=== PATIENT | female | born 1960 | race Caucasian/White ===

== ENCOUNTER 2022-12-26 17:39 | Inpatient (IN) | payer BC ==
--- OUTSIDE RECORDS SUMMARY | 2022-12-26 17:43 | XMS REPORT | Continuity of Care Document ---
:1960 Author Organization [facility] t Address [address] [facility] [place] [address] Care Team Providers Name Role Phone BURT FISHER Primary Care Physician Unavailable ILDA PICHARDO I Attending Clinician Unavailable JORDYN GUTIERREZ Attending Clinician Unavailable AALIYAH SCHWAB Attending Clinician Unavailable AALIYAH SCHWAB Attending Clinician Unavailable JULIA DE LA ROSA Attending Clinician Unavailable Jose M Kelly MD Attending Clinician JORDYN GUTIERREZ Admitting Clinician Unavailable Payers Payer Name Policy Type Policy Number Effective Date Expiration Date S yassine BS OS [id number] 2021 00:00:00 POS/PPO/EPO Problems This patient has no known problems. Allergies, Adverse Reactions, Alerts Allergy Allergy Status Severity Reaction(s) Onset Inactive Treating Comm ents Source Name Type Date Date Clinician SULFA Allergy Active Low Nausea [facility] ([facility] 00 [facility] I[facility]) [facility] Active ITCHING 2018- [facility]I 6-24 [facility] [place] 00 [facility] SULFA Drug Active N/V 2018- [facility] (SULFONA Class 6-24 ity of [facility] 00:[facility]: [place] ANTIBIOT 00 Medical ICS) Branch Medications This patient has no known medications. Vital Signs Vital Name Observation Time Observation Value Comments Source HEIGHT 2022-12-15 04:00:00 147.3 cm WEIGHT 2022-12-15 04:00:00 58.2 kg HEIGHT 2022-12-15 04:00:00 147.3 cm WEIGHT 2022-12-15 04:00:00 58.2 kg Procedures This patient has no known procedures. Encounters Start End Encounter Admission Attending Care Care Encounter Source Date/Time Date/Time Type Type Clinicians Facility Department ID 2022-12-[address] [facility] [id number] [facility] 08:13:09 [facility] 2022-12-17 Inpatient ER [facility] [id number] [facility] 07:02:47 A NIMCO JOSE AANTONIO 2022-12-15 Inpatient ER [facility] [id number] [facility] 17:19:22 A JORDYN RINALDI 2022-12-15 Inpatient ER [facility] [id number] [facility] 14:42:20 A JORDYN RINALDI 2022-12-15 Inpatient ER [facility] [id number] [facility] 14:42:13 A JORDYN RINALDI 2022-12-15 Inpatient ER [facility] [id number] [facility] 14:42:05 A JORDYN RINALDI 2022-12-15 2022-12-22 Inpatient ER [facility] Neuro ICU [id number] [facility] 04:07:00 11:37:00 MRINALINI 2018-12-27 2018-12-27 [facility] [id number] 12:30:00 23:59:00 Encounter Jose M Gabe [place] [id number] [place] [id number] [place] [id number] Results Test Description Test Time Test Comments Results Result Comments Source CBC W/PLT COUNT & AUTO DIFFERENTIAL 2022-12-22 06:30:49 Test Item Value Reference Range Interpretation Comme nts WHITE BLOOD CELL COUNT (BEAKER) (test code = 775) 7.5 K/ L 3.5- 10.5 RED BLOOD CELL COUNT (BEAKER) (test code = 761) 3.57 M/ L 3.93-5 .22 L HEMOGLOBIN (BEAKER) (test code = 410) 10.6 GM/DL 11.2-15.7 L HEMATOCRIT (BEAKER) (test code = 411) 31.0 % 34.1-44.9 L MEAN CORPUSCULAR VOLUME (BEAKER) (test code = 753) 87 fL 79- 95 MEAN CORPUSCULAR HEMOGLOBIN (BEAKER) (test code = 751) 29.7 pg 25.6-32.2 MEAN CORPUSCULAR HEMOGLOBIN CONC (BEAKER) (test code = 752) 34.2 GM/DL 32.2-35.5 RED CELL DISTRIBUTION WIDTH (BEAKER) (test code = 412) 13.1 % 11.7-14.4 PLATELET COUNT (BEAKER) (test code = 756) 238 K/CU MM 150-450 MEAN PLATELET VOLUME (BEAKER) (test code = 754) 9.3 fL 9.4-12 .3 L NUCLEATED RED BLOOD CELLS (BEAKER) (test code = 413) 0 /100 WBC 0 -0 NEUTROPHILS RELATIVE PERCENT (BEAKER) (test code = 429) 68 % LYMPHOCYTES RELATIVE PERCENT (BEAKER) (test code = 430) 24 % MONOCYTES RELATIVE PERCENT (BEAKER) (test code = 431) 6 % EOSINOPHILS RELATIVE PERCENT (BEAKER) (test code = 432) 1 % BASOPHILS RELATIVE PERCENT (BEAKER) (test code = 437) 0 % NEUTROPHILS ABSOLUTE COUNT (BEAKER) (test code = 670) 5.09 K/ L 1.56-6.13 LYMPHOCYTES ABSOLUTE COUNT (BEAKER) (test code = 414) 1.76 K/ L 1.18-3.74 MONOCYTES ABSOLUTE COUNT (BEAKER) (test code = 415) 0.48 K/ L 0. 24-0.36 H EOSINOPHILS ABSOLUTE COUNT (BEAKER) (test code = 416) 0.06 K/ L 0.04-0.36 BASOPHILS ABSOLUTE COUNT (BEAKER) (test code = 417) 0.02 K/ L 0. 01-0.08 IMMATURE GRANULOCYTES-RELATIVE PERCENT (BEAKER) (test code 0.90 % 0.00-1.00 = 2801) [id number] 06:20:54 Test Item Value Reference Range Interpretation Comments MAGNESIUM (BEAKER) (test code = 1.4 mg/dL 1.6-2.6 L 627) Bank Guard ID - [id number] 06:20:54 Test Item Value Reference Range Interpretation Comments PHOSPHORUS (BEAKER) (test code = 3.2 mg/dL 2.3-4.7 604) Bank Guard ID - mmBASIC METABOLIC [id number] 06:20:53 Test Item Value Reference Range Interpretation Comments SODIUM (BEAKER) 130 meq/L 136-145 L (test code = 381) POTASSIUM 4.0 meq/L 3.5-5.1 (BEAKER) (test code = 379) CHLORIDE (BEAKER) 100 meq/L 98-107 (test code = 382) CO2 (BEAKER) 24 meq/L 22-29 (test code = 355) BLOOD UREA 9 mg/dL 7-21 NITROGEN (BEAKER) (test code = 354) CREATININE 0.55 mg/dL 0.57-1.25 L (BEAKER) (test code = 358) GLUCOSE RANDOM 103 mg/dL 70-105 (BEAKER) (test code = 652) CALCIUM (BEAKER) 8.8 mg/dL 8.4-10.2 (test code = 697) EGFR (BEAKER) 103 Interpretatio n of eGFR (test code = mL/min/1.73 values Stage De scription 1092) sq m Result G1 Jocelyn l or high >=90 G2 Mildly decreased 60-89 G3a Mildl y to moderately 45-5 9 G3b Moderately to s everely 30-44 G4 Sever ly decreased 15-29 G5 Kidney failure <15Repo rted eGFR is based on the CKD-EPI 2020 equation t hat does not use a race coefficientEsti mated GFR is not as accur ate as Creatinine Faby bland in predicting glom erular filtration rate . Estimated GFR is not appl icable for dialysis patien ts Bank Guard ID - [id number] 06:46:55 Test Item Value Reference Range Interpretation Comments MAGNESIUM (BEAKER) (test code = 1.3 mg/dL 1.6-2.6 L 627) Bank Guard ID - [id number] 06:46:55 Test Item Value Reference Range Interpretation Comments PHOSPHORUS (BEAKER) (test code = 4.6 mg/dL 2.3-4.7 604) Bank Guard ID - ADMINBASIC METABOLIC [id number] 06:46:54 Test Item Value Reference Range Interpretation Comments SODIUM (BEAKER) 129 meq/L 136-145 L (test code = 381) POTASSIUM 3.5 meq/L 3.5-5.1 (BEAKER) (test code = 379) CHLORIDE (BEAKER) 97 meq/L 98-107 L (test code = 382) CO2 (BEAKER) 21 meq/L 22-29 L (test code = 355) BLOOD UREA 7 mg/dL 7-21 NITROGEN (BEAKER) (test code = 354) CREATININE 0.56 mg/dL 0.57-1.25 L (BEAKER) (test code = 358) GLUCOSE RANDOM 85 mg/dL 70-105 (BEAKER) (test code = 652) CALCIUM (BEAKER) 8.7 mg/dL 8.4-10.2 (test code = 697) EGFR (BEAKER) 102 Interpretatio n of eGFR (test code = mL/min/1.73 values Stage De scription 1092) sq m Result G1 Jocelyn l or high >=90 G2 Mildly decreased 60-89 G3a Mildl y to moderately 45-5 9 G3b Moderately to s everely 30-44 G4 Sever ly decreased 15-29 G5 Kidney failure <15Repo rted eGFR is based on the CKD-EPI 2020 equation t hat does not use a race coefficientEsti mated GFR is not as accur ate as Creatinine Faby bland in predicting glom erular filtration rate . Estimated GFR is not appl icable for dialysis patien ts Bank Guard ID - ADMINCBC W/PLT COUNT & AUTO [id number] 06:06:57 Test Item Value Reference Range Interpretation Comments WHITE BLOOD CELL COUNT (BEAKER) 7.2 K/ L 3.5-10.5 (test code = 775) RED BLOOD CELL COUNT (BEAKER) 3.59 M/ L 3.93-5.22 L (test code = 761) HEMOGLOBIN (BEAKER) (test code = 10.7 GM/DL 11.2-15.7 L 410) HEMATOCRIT (BEAKER) (test code = 30.1 % 34.1-44.9 L 411) MEAN CORPUSCULAR VOLUME (BEAKER) 84 fL 79-95 (test code = 753) MEAN CORPUSCULAR HEMOGLOBIN 29.8 pg 25.6-32.2 (BEAKER) (test code = 751) MEAN CORPUSCULAR HEMOGLOBIN CONC 35.5 GM/DL 32.2-35.5 (BEAKER) (test code = 752) RED CELL DISTRIBUTION WIDTH 12.7 % 11.7-14.4 (BEAKER) (test code = 412) PLATELET COUNT (BEAKER) (test 264 K/CU MM 150-450 code = 756) MEAN PLATELET VOLUME (BEAKER) 9.1 fL 9.4-12.3 L (test code = 754) NUCLEATED RED BLOOD CELLS 0 /100 WBC 0-0 (BEAKER) (test code = 413) NEUTROPHILS RELATIVE PERCENT 64 % (BEAKER) (test code = 429) LYMPHOCYTES RELATIVE PERCENT 27 % (BEAKER) (test code = 430) MONOCYTES RELATIVE PERCENT 6 % (BEAKER) (test code = 431) EOSINOPHILS RELATIVE PERCENT 2 % (BEAKER) (test code = 432) BASOPHILS RELATIVE PERCENT 0 % (BEAKER) (test code = 437) NEUTROPHILS ABSOLUTE COUNT 4.62 K/ L 1.56-6.13 (BEAKER) (test code = 670) LYMPHOCYTES ABSOLUTE COUNT 1.96 K/ L 1.18-3.74 (BEAKER) (test code = 414) MONOCYTES ABSOLUTE COUNT (BEAKER) 0.43 K/ L 0.24-0.36 H (test code = 415) EOSINOPHILS ABSOLUTE COUNT 0.13 K/ L 0.04-0.36 (BEAKER) (test code = 416) BASOPHILS ABSOLUTE COUNT (BEAKER) 0.02 K/ L 0.01-0.08 (test code = 417) IMMATURE GRANULOCYTES-RELATIVE 0.40 % 0.00-1.00 PERCENT (BEAKER) (test code = 2801) MR BRAIN WITH & WITHOUT IV [id number] 22:54:48 [facility] : 1960 Sex: FMR BRAIN WITH & WITHOUT IV CONTRASTINDICATION: Meningitis/[employer] infection suspectedTechnique: MRI of thebrain utilizing axial T1, T2, FLAIR, GRE, DWI,sagittal T1; and postgadolinium axial, sagittal, and coronal T1-weightedimages.COMPARISON: 12/15/2022FINDINGS:Questionable cortically based restricted diffusion and FLAIRhyperintensity within the right anterior occipital cortex (axial FLAIRimage #14; axial DTI image #56). No involvement of the subcortical whitematter. No definite associated enhancement.Scattered T2/FLAIR hyperintense foci within the periventricular andsubcortical white matter are nonspecific, however, statisticallyrepresent chronic microvascular ischemic changes.No hydrocephalus.Orbits are within normal limits.No obstructive paranasal sinus disease.Left mastoid effusion.IMPRESSION:Questionable cortically based restricted diffusion and FLAIRhyperintensity within the right anterior occipital cortex (axial FLAIRimage #14; axial DTI image #56). No involvement of the subcortical whitematter. Findings may represent sequela of recent seizure, or,conceivably, developing meningitis versus encephalitis.Electronically Signed By: Kala Fu12/20/2022 22:56 CDTWorkstation Name: [id number] CULTURE 2022-12-20 21:00:19 Test Item Value Reference Range Interpretation Comments CULTURE (BEAKER) (test No growth in 5 days code = 1095) BLOOD [id number] 21:00:18 Test Item Value Reference Range Interpretation Comments CULTURE (BEAKER) (test No growth in 5 days code = 1095) The specimen volume collected for this blood culture was below the optimum (10 mL per bottle or 20 mL total). Use of lower volumes may adversely affect recovery and/or detection times of some organisms.BASIC METABOLIC PANEL 2022-12-20 06:34:08 Test Item Value Reference Range Interpretation Comments SODIUM (BEAKER) 129 meq/L 136-145 L (test code = 381) POTASSIUM 3.2 meq/L 3.5-5.1 L (BEAKER) (test code = 379) CHLORIDE (BEAKER) 98 meq/L 98-107 (test code = 382) CO2 (BEAKER) 22 meq/L 22-29 (test code = 355) BLOOD UREA 7 mg/dL 7-21 NITROGEN (BEAKER) (test code = 354) CREATININE 0.57 mg/dL 0.57-1.25 (BEAKER) (test code = 358) GLUCOSE RANDOM 94 mg/dL 70-105 (BEAKER) (test code = 652) CALCIUM (BEAKER) 8.5 mg/dL 8.4-10.2 (test code = 697) EGFR (BEAKER) 102 Interpretatio n of eGFR (test code = mL/min/1.73 values Stage De scription 1092) sq m Result G1 Jocelyn l or high >=90 G2 Mildly decreased 60-89 G3a Mildl y to moderately 45-5 9 G3b Moderately to s everely 30-44 G4 Severl y decreased 15-29 G5 Kidney failure <15Reported eGF R is based on the CKD-EPI 2020 equation that d oes not use a race coefficientEsti mated GFR is not as accur ate as Creatinine Faby baldo in predicting glom erular filtration rate . Estimated GFR is not appl icable for dialysis patien ts Bank Guard ID - [id number] 06:34:08 Test Item Value Reference Range Interpretation Comments MAGNESIUM (BEAKER) (test code = 1.3 mg/dL 1.6-2.6 L 627) Bank Guard ID - [id number] 06:34:08 Test Item Value Reference Range Interpretation Comments PHOSPHORUS (BEAKER) (test code = 4.0 mg/dL 2.3-4.7 604) Bank Guard ID - ADMINCBC W/PLT COUNT & AUTO [id number] 06:07:55 Test Item Value Reference Range Interpretation Comments WHITE BLOOD CELL COUNT (BEAKER) 8.0 K/ L 3.5-10.5 (test code = 775) RED BLOOD CELL COUNT (BEAKER) 3.79 M/ L 3.93-5.22 L (test code = 761) HEMOGLOBIN (BEAKER) (test code = 11.1 GM/DL 11.2-15.7 L 410) HEMATOCRIT (BEAKER) (test code = 31.5 % 34.1-44.9 L 411) MEAN CORPUSCULAR VOLUME (BEAKER) 83 fL 79-95 (test code = 753) MEAN CORPUSCULAR HEMOGLOBIN 29.3 pg 25.6-32.2 (BEAKER) (test code = 751) MEAN CORPUSCULAR HEMOGLOBIN CONC 35.2 GM/DL 32.2-35.5 (BEAKER) (test code = 752) RED CELL DISTRIBUTION WIDTH 12.7 % 11.7-14.4 (BEAKER) (test code = 412) PLATELET COUNT (BEAKER) (test 252 K/CU MM 150-450 code = 756) MEAN PLATELET VOLUME (BEAKER) 9.0 fL 9.4-12.3 L (test code = 754) NUCLEATED RED BLOOD CELLS 0 /100 WBC 0-0 (BEAKER) (test code = 413) NEUTROPHILS RELATIVE PERCENT 70 % (BEAKER) (test code = 429) LYMPHOCYTES RELATIVE PERCENT 23 % (BEAKER) (test code = 430) MONOCYTES RELATIVE PERCENT 6 % (BEAKER) (test code = 431) EOSINOPHILS RELATIVE PERCENT 0 % (BEAKER) (test code = 432) BASOPHILS RELATIVE PERCENT 0 % (BEAKER) (test code = 437) NEUTROPHILS ABSOLUTE COUNT 5.56 K/ L 1.56-6.13 (BEAKER) (test code = 670) LYMPHOCYTES ABSOLUTE COUNT 1.84 K/ L 1.18-3.74 (BEAKER) (test code = 414) MONOCYTES ABSOLUTE COUNT (BEAKER) 0.50 K/ L 0.24-0.36 H (test code = 415) EOSINOPHILS ABSOLUTE COUNT 0.02 K/ L 0.04-0.36 L (BEAKER) (test code = 416) BASOPHILS ABSOLUTE COUNT (BEAKER) 0.03 K/ L 0.01-0.08 (test code = 417) IMMATURE GRANULOCYTES-RELATIVE 0.40 % 0.00-1.00 PERCENT (BEAKER) (test code = 2801) [id number] 19:03:03 Test Item Value Reference Range Interpretation Comments POTASSIUM (BEAKER) (test code = 3.5 meq/L 3.5-5.1 379) Bank Guard ID - DBCSF CULTURE + GRAM [id number] 12:08:59 Test Item Value Reference Range Interpretation Comments CULTURE (BEAKER) (test code No growth = 1095) GRAM STAIN RESULT (BEAKER) 1+ WBCs (test code = 1123) GRAM STAIN RESULT (BEAKER) No organisms seen (test code = 32413) BASIC METABOLIC [id number] 06:29:11 Test Item Value Reference Range Interpretation Comments SODIUM (BEAKER) 128 meq/L 136-145 L (test code = 381) POTASSIUM 2.4 meq/L 3.5-5.1 LL (BEAKER) (test code = 379) CHLORIDE (BEAKER) 95 meq/L 98-107 L (test code = 382) CO2 (BEAKER) 23 meq/L 22-29 (test code = 355) BLOOD UREA 4 mg/dL 7-21 L NITROGEN (BEAKER) (test code = 354) CREATININE 0.55 mg/dL 0.57-1.25 L (BEAKER) (test code = 358) GLUCOSE RANDOM 111 mg/dL 70-105 H (BEAKER) (test code = 652) CALCIUM (BEAKER) 8.1 mg/dL 8.4-10.2 L (test code = 697) EGFR (BEAKER) 103 Interpretatio n of eGFR (test code = mL/min/1.73 values Stage De scription 1092) sq m Result G1 Jocelyn l or high >=90 G2 Mildly decreased 60-89 G3a Mildl y to moderately 45-5 9 G3b Moderately to s everely 30-44 G4 Severl y decreased 15-29 G5 Kidne y failure <15Reported eGF R is based on the CKD-EPI 2020 equation that d oes not use a race coefficientEsti mated GFR is not as accur ate as Creatinine Faby baldo in predicting glom erular filtration rate . Estimated GFR is not appl icable for dialysis patien ts Bank Guard ID - [id number] 05:41:37 Test Item Value Reference Range Interpretation Comments PHOSPHORUS (BEAKER) (test code = 2.4 mg/dL 2.3-4.7 604) Bank Guard ID - [id number] 05:41:36 Test Item Value Reference Range Interpretation Comments MAGNESIUM (BEAKER) (test code = 1.8 mg/dL 1.6-2.6 627) Bank Guard ID - ADMINCBC W/PLT COUNT & AUTO [id number] 05:12:32 Test Item Value Reference Range Interpretation Comments WHITE BLOOD CELL COUNT (BEAKER) 9.1 K/ L 3.5-10.5 (test code = 775) RED BLOOD CELL COUNT (BEAKER) 3.94 M/ L 3.93-5.22 (test code = 761) HEMOGLOBIN (BEAKER) (test code = 11.4 GM/DL 11.2-15.7 410) HEMATOCRIT (BEAKER) (test code = 32.6 % 34.1-44.9 L 411) MEAN CORPUSCULAR VOLUME (BEAKER) 83 fL 79-95 (test code = 753) MEAN CORPUSCULAR HEMOGLOBIN 28.9 pg 25.6-32.2 (BEAKER) (test code = 751) MEAN CORPUSCULAR HEMOGLOBIN CONC 35.0 GM/DL 32.2-35.5 (BEAKER) (test code = 752) RED CELL DISTRIBUTION WIDTH 12.2 % 11.7-14.4 (BEAKER) (test code = 412) PLATELET COUNT (BEAKER) (test 274 K/CU MM 150-450 code = 756) MEAN PLATELET VOLUME (BEAKER) 9.1 fL 9.4-12.3 L (test code = 754) NUCLEATED RED BLOOD CELLS 0 /100 WBC 0-0 (BEAKER) (test code = 413) NEUTROPHILS RELATIVE PERCENT 75 % (BEAKER) (test code = 429) LYMPHOCYTES RELATIVE PERCENT 18 % (BEAKER) (test code = 430) MONOCYTES RELATIVE PERCENT 6 % (BEAKER) (test code = 431) EOSINOPHILS RELATIVE PERCENT 0 % (BEAKER) (test code = 432) BASOPHILS RELATIVE PERCENT 0 % (BEAKER) (test code = 437) NEUTROPHILS ABSOLUTE COUNT 6.78 K/ L 1.56-6.13 H (BEAKER) (test code = 670) LYMPHOCYTES ABSOLUTE COUNT 1.61 K/ L 1.18-3.74 (BEAKER) (test code = 414) MONOCYTES ABSOLUTE COUNT (BEAKER) 0.57 K/ L 0.24-0.36 H (test code = 415) EOSINOPHILS ABSOLUTE COUNT 0.04 K/ L 0.04-0.36 (BEAKER) (test code = 416) BASOPHILS ABSOLUTE COUNT (BEAKER) 0.02 K/ L 0.01-0.08 (test code = 417) IMMATURE GRANULOCYTES-RELATIVE 0.30 % 0.00-1.00 PERCENT (BEAKER) (test code = 2801) OSMOLALITY, [id number] 22:19:45 Test Item Value Reference Range Interpretation Comments OSMOLALITY, SERUM (BEAKER) (test 260 mOsm/kg 275-295 L code = 615) OSMOLALITY, [id number] 20:51:14 Test Item Value Reference Range Interpretation Comments OSMOLALITY URINE 372 mOsm/kg See_Comment [Automated message] (BEAKER) (test code = The sy stem which 614) generated this result transmitted ref erence range: 50-1,200 mOsm/kg. The reference range was not used to int erpret this result as normal/abnormal . SODIUM, RANDOM [id number] 20:50:36 Test Item Value Reference Range Interpretation Comments SODIUM URINE (BEAKER) (test code = 131 meq/L 243) Reference Range: No NormalsOperator ID - [id number] 14:28:02 Test Item Value Reference Range Interpretation Comments PHOSPHORUS (BEAKER) (test code = 2.2 mg/dL 2.3-4.7 L 604) Bank Guard ID - [id number] 14:28:02 Test Item Value Reference Range Interpretation Comments POTASSIUM (BEAKER) (test code = 3.0 meq/L 3.5-5.1 L 379) Bank Guard ID - [id number] 14:28:01 Test Item Value Reference Range Interpretation Comments MAGNESIUM (BEAKER) (test code = 2.3 mg/dL 1.6-2.6 627) Bank Guard ID - ADMINVARICELLA ZOSTER ANTIBODY, [id number] 14:01:51 Test Item Value Reference Range Interpretation Comments VARICELLA ZOSTER IGG (AL) (BEAKER) 4.2 (test code = 3197) VARICELLA ZOSTER RESULT INTERPRETATIONS: <=0.8 Al Nonreactive: Presumed non- immune to VZV 0.9-1.0 Al Equivocal >=1.1 Al Reactive: Presumed immune to VZV [id number] 07:39:09 Test Item Value Reference Range Interpretation Comments PHOSPHORUS (BEAKER) (test code = 1.1 mg/dL 2.3-4.7 LL 604) Bank Guard ID - ADMINBASIC METABOLIC [id number] 07:35:44 Test Item Value Reference Range Interpretation Comments SODIUM (BEAKER) 129 meq/L 136-145 L (test code = 381) POTASSIUM 3.2 meq/L 3.5-5.1 L (BEAKER) (test code = 379) CHLORIDE (BEAKER) 96 meq/L 98-107 L (test code = 382) CO2 (BEAKER) 24 meq/L 22-29 (test code = 355) BLOOD UREA 5 mg/dL 7-21 L NITROGEN (BEAKER) (test code = 354) CREATININE 0.58 mg/dL 0.57-1.25 (BEAKER) (test code = 358) GLUCOSE RANDOM 113 mg/dL 70-105 H (BEAKER) (test code = 652) CALCIUM (BEAKER) 7.9 mg/dL 8.4-10.2 L (test code = 697) EGFR (BEAKER) 102 Interpretatio n of eGFR (test code = mL/min/1.73 values Stage De scription 1092) sq m Result G1 Jocelyn l or high >=90 G2 Mildly decreased 60-89 G3a Mildl y to moderately 45-5 9 G3b Moderately to s everely 30-44 G4 Severl y decreased 15-29 G5 Kidney failure <15Reported eGF R is based on the CKD-EPI 2020 equation that d oes not use a race coefficientEsti mated GFR is not as accur ate as Creatinine Faby bland in predicting glom erular filtration rate . Estimated GFR is not appl icable for dialysis patien ts Bank Guard ID - [id number] 07:19:04 Test Item Value Reference Range Interpretation Comments MAGNESIUM (BEAKER) (test code = 1.7 mg/dL 1.6-2.6 627) Bank Guard ID - ADMINCBC W/PLT COUNT & AUTO [id number] 06:31:09 Test Item Value Reference Range Interpretation Comments WHITE BLOOD CELL COUNT (BEAKER) 8.2 K/ L 3.5-10.5 (test code = 775) RED BLOOD CELL COUNT (BEAKER) 3.62 M/ L 3.93-5.22 L (test code = 761) HEMOGLOBIN (BEAKER) (test code = 10.8 GM/DL 11.2-15.7 L 410) HEMATOCRIT (BEAKER) (test code = 30.0 % 34.1-44.9 L 411) MEAN CORPUSCULAR VOLUME (BEAKER) 83 fL 79-95 (test code = 753) MEAN CORPUSCULAR HEMOGLOBIN 29.8 pg 25.6-32.2 (BEAKER) (test code = 751) MEAN CORPUSCULAR HEMOGLOBIN CONC 36.0 GM/DL 32.2-35.5 H (BEAKER) (test code = 752) RED CELL DISTRIBUTION WIDTH 12.1 % 11.7-14.4 (BEAKER) (test code = 412) PLATELET COUNT (BEAKER) (test 210 K/CU MM 150-450 code = 756) MEAN PLATELET VOLUME (BEAKER) 8.6 fL 9.4-12.3 L (test code = 754) NUCLEATED RED BLOOD CELLS 0 /100 WBC 0-0 (BEAKER) (test code = 413) NEUTROPHILS RELATIVE PERCENT 77 % (BEAKER) (test code = 429) LYMPHOCYTES RELATIVE PERCENT 15 % (BEAKER) (test code = 430) MONOCYTES RELATIVE PERCENT 8 % (BEAKER) (test code = 431) EOSINOPHILS RELATIVE PERCENT 0 % (BEAKER) (test code = 432) BASOPHILS RELATIVE PERCENT 0 % (BEAKER) (test code = 437) NEUTROPHILS ABSOLUTE COUNT 6.31 K/ L 1.56-6.13 H (BEAKER) (test code = 670) LYMPHOCYTES ABSOLUTE COUNT 1.22 K/ L 1.18-3.74 (BEAKER) (test code = 414) MONOCYTES ABSOLUTE COUNT (BEAKER) 0.61 K/ L 0.24-0.36 H (test code = 415) EOSINOPHILS ABSOLUTE COUNT 0.00 K/ L 0.04-0.36 L (BEAKER) (test code = 416) BASOPHILS ABSOLUTE COUNT (BEAKER) 0.01 K/ L 0.01-0.08 (test code = 417) IMMATURE GRANULOCYTES-RELATIVE 0.40 % 0.00-1.00 PERCENT (BEAKER) (test code = 2801) [id number] 05:20:33 Test Item Value Reference Range Interpretation Comments FERRITIN (BEAKER) (test code = 98.56 ng/mL 5.00-275.00 361) Bank [employer] ID - BENIGNO NI, TIBC, % SAT. (WITHOUT FERRITIN)2022-12-18 04:59:37 Test Item Value Reference Range Interpretation Comments IRON (BEAKER) (test code = 547) 45.0 ug/dL 40.0-160.0 TOTAL IRON BINDING CAPACITY 198 ug/dL 250-450 L (BEAKER) (test code = 769) IRON % SATURATION (2) (BEAKER) 23 % 20-55 (test code = 2590) Bank [employer] ID - BENIGNO [id number] 16:42:38 Test Item Value Reference Range Interpretation Comments POTASSIUM (BEAKER) 3.0 meq/L 3.5-5.1 L Specimen slightly (test code = 379) hemolyzed Bank [employer] ID - MMCSF CELL COUNT [id number] 14:36:58 Test Item Value Reference Range Interpretation Comments APPEARANCE CSF (BEAKER) (test code Clear Clear = 407) COLOR CSF (BEAKER) (test code = Colorless Colorless 408) RBC CSF (BEAKER) (test code = 409) 30 /cu mm 0-5 H RBCS FRESH (BEAKER) (test code = 100% Fresh 1444) TOTAL NUCLEATED CELL COUNT (test 52 /cu mm <=5 H code = 1020) WBCS DIFF'D (test code = 1591) 100 LINING CELLS/OTHERS DIFF'D 0 (BEAKER) (test code = 1589) NEUTROPHIL, CSF (BEAKER) (test 92 % 0-5 H code = 324) LYMPHS CSF (BEAKER) (test code = 2 % 40-80 L 438) MONO/MACROPHAGE CSF (BEAKER) (test 6 % 15-45 L code = 439) EOSINOPHILS CSF (BEAKER) (test 0 % <=0 code = 360) BASO CSF (BEAKER) (test code = 0 % <=0 440) TUBE NUMBER CSF (BEAKER) (test EDTA Tube code = 2678) CSF CELL COUNT [id number] 14:36:21 Test Item Value Reference Range Interpretation Comments APPEARANCE CSF (BEAKER) (test code Clear Clear = 407) COLOR CSF (BEAKER) (test code = Colorless Colorless 408) RBC CSF (BEAKER) (test code = 409) 6 /cu mm 0-5 H RBCS FRESH (BEAKER) (test code = 100% Fresh 1444) TOTAL NUCLEATED CELL COUNT (test 29 /cu mm <=5 H code = 1020) WBCS DIFF'D (test code = 1591) 100 LINING CELLS/OTHERS DIFF'D 0 (BEAKER) (test code = 1589) NEUTROPHIL, CSF (BEAKER) (test 93 % 0-5 H code = 324) LYMPHS CSF (BEAKER) (test code = 1 % 40-80 L 438) MONO/MACROPHAGE CSF (BEAKER) (test 6 % 15-45 L code = 439) EOSINOPHILS CSF (BEAKER) (test 0 % <=0 code = 360) BASO CSF (BEAKER) (test code = 0 % <=0 440) TUBE NUMBER CSF (BEAKER) (test EDTA Tube code = 2678) GLUCOSE, [id number] 14:05:04 Test Item Value Reference Range Interpretation Comments GLUCOSE CSF (BEAKER) (test code = 70 mg/dL 40-70 406) Bank Guard ID - ADMINPROTEIN, [id number] 14:05:04 Test Item Value Reference Range Interpretation Comments PROTEIN CSF (BEAKER) (test code = 54 mg/dL 15-45 H 378) Bank Guard ID - ADMINMENINGITIS/ENCEPHALITIS [id number] 13:20:47 Test Item Value Reference Range Interpretation Comments ESCHERICHIA COLI K1 (test code = Not detected Not detected 20160226) HAEMOPHILUS INFLUENZAE (test Not detected Not detected code = 7097958) LISTERIA MONOCYTOGENES (test Not detected Not detected code = 0394531) NEISSERIA MENINGITIDIS (test Not detected Not detected code = 1417748) STREPTOCOCCUS AGALACTIAE (test Not detected Not detected code = 9546772) STREPTOCOCCUS PNEUMONIAE (test Not detected Not detected code = 4330344) CYTOMEGALOVIRUS (CMV) (test code Not detected Not detected = 8344624) ENTEROVIRUS (test code = Not detected Not detected 4066957) HUMAN HERPESVIRUS 6 (HHV-6) Not detected Not detected (test code = 8602220) HERPES SIMPLEX VIRUS 1(HSV-1) Not detected Not detected (test code = 9650291) HERPES SIMPLEX VIRUS 2(HSV-2) Not detected Not detected (test code = 2697616) HUMAN PARECHOVIRUS (test code = Not detected Not detected 4194665) VARICELLA-ZOSTER VIRUS (VZV) Not detected Not detected (test code = 2809617) CRYPTOCOCCUS NEOFORMANS/GATTII Not detected Not detected (test code = 6939411) The performance of this test has not been specifically evaluated for CSF specimens from immunocompromised individuals. The effect of antibiotic treatment on test performance has not been evaluated. Other viruses and bacteria not targeted by this PCR panel cannot be excluded; therefore, clinical correlation and follow up of serology, culture results, and other molecular studies may be required. This sample was tested at the [facility] using the SnapSense FilmArray MeningitisEncephalitis Panel. It is FDA cleared and has been verified and approved by the [facility] for clinical use. This laboratory is CLIA-certified and [employer] ([employer])-accredited to perform high complexity testing.POCT-GLUCOSE METER 2022-12-17 10:41:49 Test Item Value Reference Range Interpretation Comments POC-GLUCOSE METER 138 mg/dL 70-110 H : TESTED Priyanka T [facility] 6720 (BEAKER) (test code = MARY JANE Patrick [facility], 1538) [address]: Bank Guard/Techni june ID = [id number] for Sandra Messina BASIC METABOLIC [id number] 04:19:13 Test Item Value Reference Range Interpretation Comments SODIUM (BEAKER) 126 meq/L 136-145 L (test code = 381) POTASSIUM 2.8 meq/L 3.5-5.1 L (BEAKER) (test code = 379) CHLORIDE (BEAKER) 89 meq/L 98-107 L (test code = 382) CO2 (BEAKER) 28 meq/L 22-29 (test code = 355) BLOOD UREA 6 mg/dL 7-21 L NITROGEN (BEAKER) (test code = 354) CREATININE 0.65 mg/dL 0.57-1.25 (BEAKER) (test code = 358) GLUCOSE RANDOM 145 mg/dL 70-105 H (BEAKER) (test code = 652) CALCIUM (BEAKER) 7.8 mg/dL 8.4-10.2 L (test code = 697) EGFR (BEAKER) 99 Interpretati on of eGFR (test code = mL/min/1.73 values Stage De scription 1092) sq m Result G1 Jocelyn l or high >=90 G2 Mildly decreased 60-89 G3a Mildl y to moderately 45-5 9 G3b Moderately to s everely 30-44 G4 Severl y decreased 15-29 G5 Kidney failure <15Reported eGF R is based on the CKD-EPI 2020 equation that d oes not use a race coefficientEsti mated GFR is not as accur ate as Creatinine Faby baldo in predicting glom erular filtration rate . Estimated GFR is not appl icable for dialysis patien ts Bank Guard ID - MMVANCOMYCIN LEVEL, [id number] 04:16:30 Test Item Value Reference Range Interpretation Comments VANCOMYCIN TROUGH (BEAKER) (test 6.6 ug/mL 10.0-20.0 L code = 522) Bank Guard ID - [id number] 04:14:47 Test Item Value Reference Range Interpretation Comments PHOSPHORUS (BEAKER) (test code = 1.7 mg/dL 2.3-4.7 L 604) Bank Guard ID - [id number] 04:14:46 Test Item Value Reference Range Interpretation Comments MAGNESIUM (BEAKER) (test code = 2.3 mg/dL 1.6-2.6 627) Bank Guard ID - MMCBC W/PLT COUNT & AUTO [id number] 04:04:43 Test Item Value Reference Range Interpretation Comments WHITE BLOOD CELL COUNT (BEAKER) 7.1 K/ L 3.5-10.5 (test code = 775) RED BLOOD CELL COUNT (BEAKER) 3.60 M/ L 3.93-5.22 L (test code = 761) HEMOGLOBIN (BEAKER) (test code = 10.5 GM/DL 11.2-15.7 L 410) HEMATOCRIT (BEAKER) (test code = 29.3 % 34.1-44.9 L 411) MEAN CORPUSCULAR VOLUME (BEAKER) 81 fL 79-95 (test code = 753) MEAN CORPUSCULAR HEMOGLOBIN 29.2 pg 25.6-32.2 (BEAKER) (test code = 751) MEAN CORPUSCULAR HEMOGLOBIN CONC 35.8 GM/DL 32.2-35.5 H (BEAKER) (test code = 752) RED CELL DISTRIBUTION WIDTH 11.9 % 11.7-14.4 (BEAKER) (test code = 412) PLATELET COUNT (BEAKER) (test 214 K/CU MM 150-450 code = 756) MEAN PLATELET VOLUME (BEAKER) 8.5 fL 9.4-12.3 L (test code = 754) NUCLEATED RED BLOOD CELLS 0 /100 WBC 0-0 (BEAKER) (test code = 413) NEUTROPHILS RELATIVE PERCENT 64 % (BEAKER) (test code = 429) LYMPHOCYTES RELATIVE PERCENT 26 % (BEAKER) (test code = 430) MONOCYTES RELATIVE PERCENT 10 % (BEAKER) (test code = 431) EOSINOPHILS RELATIVE PERCENT 0 % (BEAKER) (test code = 432) BASOPHILS RELATIVE PERCENT 0 % (BEAKER) (test code = 437) NEUTROPHILS ABSOLUTE COUNT 4.53 K/ L 1.56-6.13 (BEAKER) (test code = 670) LYMPHOCYTES ABSOLUTE COUNT 1.82 K/ L 1.18-3.74 (BEAKER) (test code = 414) MONOCYTES ABSOLUTE COUNT (BEAKER) 0.71 K/ L 0.24-0.36 H (test code = 415) EOSINOPHILS ABSOLUTE COUNT 0.00 K/ L 0.04-0.36 L (BEAKER) (test code = 416) BASOPHILS ABSOLUTE COUNT (BEAKER) 0.02 K/ L 0.01-0.08 (test code = 417) IMMATURE GRANULOCYTES-RELATIVE 0.40 % 0.00-1.00 PERCENT (BEAKER) (test code = 2801) CBC W/PLT COUNT & AUTO [id number] 05:06:00 Test Item Value Reference Range Interpretation Comments WHITE BLOOD CELL COUNT (BEAKER) 13.0 K/ L 3.5-10.5 H (test code = 775) RED BLOOD CELL COUNT (BEAKER) 3.65 M/ L 3.93-5.22 L (test code = 761) HEMOGLOBIN (BEAKER) (test code = 10.9 GM/DL 11.2-15.7 L 410) HEMATOCRIT (BEAKER) (test code = 30.4 % 34.1-44.9 L 411) MEAN CORPUSCULAR VOLUME (BEAKER) 83 fL 79-95 (test code = 753) MEAN CORPUSCULAR HEMOGLOBIN 29.9 pg 25.6-32.2 (BEAKER) (test code = 751) MEAN CORPUSCULAR HEMOGLOBIN CONC 35.9 GM/DL 32.2-35.5 H (BEAKER) (test code = 752) RED CELL DISTRIBUTION WIDTH 12.0 % 11.7-14.4 (BEAKER) (test code = 412) PLATELET COUNT (BEAKER) (test 263 K/CU MM 150-450 code = 756) MEAN PLATELET VOLUME (BEAKER) 8.7 fL 9.4-12.3 L (test code = 754) NUCLEATED RED BLOOD CELLS 0 /100 WBC 0-0 (BEAKER) (test code = 413) NEUTROPHILS RELATIVE PERCENT 80 % (BEAKER) (test code = 429) LYMPHOCYTES RELATIVE PERCENT 11 % (BEAKER) (test code = 430) MONOCYTES RELATIVE PERCENT 7 % (BEAKER) (test code = 431) EOSINOPHILS RELATIVE PERCENT 1 % (BEAKER) (test code = 432) BASOPHILS RELATIVE PERCENT 0 % (BEAKER) (test code = 437) NEUTROPHILS ABSOLUTE COUNT 10.41 K/ L 1.56-6.13 H (BEAKER) (test code = 670) LYMPHOCYTES ABSOLUTE COUNT 1.45 K/ L 1.18-3.74 (BEAKER) (test code = 414) MONOCYTES ABSOLUTE COUNT (BEAKER) 0.94 K/ L 0.24-0.36 H (test code = 415) EOSINOPHILS ABSOLUTE COUNT 0.07 K/ L 0.04-0.36 (BEAKER) (test code = 416) BASOPHILS ABSOLUTE COUNT (BEAKER) 0.03 K/ L 0.01-0.08 (test code = 417) IMMATURE GRANULOCYTES-RELATIVE 0.50 % 0.00-1.00 PERCENT (BEAKER) (test code = 2801) LIPID [id number] 05:02:07 Test Item Value Reference Range Interpretation Comments TRIGLYCERIDES (BEAKER) (test code = 67 mg/dL 540) CHOLESTEROL (BEAKER) (test code = 178 mg/dL 631) HDL CHOLESTEROL (BEAKER) (test code 38 mg/dL = 976) LDL CHOLESTEROL CALCULATED (BEAKER) 127 mg/dL (test code = 633) Triglyceride Reference Range: Low Risk <150 Borderline 150-199 High Risk 200- 499 Very High Risk >=500Cholesterol Reference Range: Low Risk <200 Borderline 200-239 High Risk >240HDL Cholesterol Reference Range: Low Risk >=60 High Risk <40LDL Cholesterol Reference Range: Optimal <100 Near Optimal 100-129 Borderline 130-159 High 160-189 Very High >=190 Bank Guard ID - MARCOBASIC METABOLIC [id number] 05:02:06 Test Item Value Reference Range Interpretation Comments SODIUM (BEAKER) 122 meq/L 136-145 L (test code = 381) POTASSIUM 3.0 meq/L 3.5-5.1 L (BEAKER) (test code = 379) CHLORIDE (BEAKER) 91 meq/L 98-107 L (test code = 382) CO2 (BEAKER) 20 meq/L 22-29 L (test code = 355) BLOOD UREA 8 mg/dL 7-21 NITROGEN (BEAKER) (test code = 354) CREATININE 0.75 mg/dL 0.57-1.25 (BEAKER) (test code = 358) GLUCOSE RANDOM 156 mg/dL 70-105 H (BEAKER) (test code = 652) CALCIUM (BEAKER) 8.2 mg/dL 8.4-10.2 L (test code = 697) EGFR (BEAKER) 89 Interpretatio n of eGFR (test code = mL/min/1.73 values Stage De scription 1092) sq m Result G1 Jocelyn l or high >=90 G2 Mildly decreased 60-89 G3a Mildl y to moderately 45-5 9 G3b Moderately to s everely 30-44 G4 Severl y decreased 15-29 G5 Kidne y failure <15Reported eGF R is based on the CKD-EPI 2020 equation that d oes not use a race coefficientEsti mated GFR is not as accur ate as Creatinine Faby baldo in predicting glom erular filtration rate . Estimated GFR is not appl icable for dialysis patien ts Bank Guard ID - [id number] 05:02:06 Test Item Value Reference Range Interpretation Comments MAGNESIUM (BEAKER) (test code = 1.8 mg/dL 1.6-2.6 627) Bank Guard ID - [id number] 05:02:06 Test Item Value Reference Range Interpretation Comments PHOSPHORUS (BEAKER) (test code = 2.2 mg/dL 2.3-4.7 L 604) Bank Guard ID - MARCOXR CHEST 1 VIEW PORTABLE / [id number] 21:24:26 [facility] 1960 Sex: FHistory: fever.Comparison: None.Findings:A single view of the chest is submitted.The cardiomediastinal contours are unremarkable. There is no focal consolidation, pneumothorax, large pleural effusion orevidence of overt pulmonary edema. There is no acute bony abnormality.Surgical clips overlie the right upper quadrant.Electronically Signed By: Vincent Fernandes12/15/2022 21:26 CDTWorkstation Name: [id number] ACID, [id number] 20:10:21 Test Item Value Reference Range Interpretation Comments LACTATE BLOOD VENOUS 1.31 mmol/L 0.50-2.00 Specime n slightly (2) (BEAKER) (test hemolyzed code = 7492) Bank Guard ID - BSURINALYSIS W/ [id number] 20:02:35 Test Item Value Reference Range Interpretation Comments COLOR (BEAKER) (test code = Light Yellow 470) CLARITY (BEAKER) (test code = Clear 469) SPECIFIC GRAVITY UA (BEAKER) 1.014 1.001-1.035 (test code = 468) PH UA (BEAKER) (test code = 7.0 5.0-8.0 467) PROTEIN UA (BEAKER) (test code 10 mg/dL Negative A = 464) GLUCOSE UA (BEAKER) (test code Negative Negative = 365) KETONES UA (BEAKER) (test code Trace Negative A = 371) BILIRUBIN UA (BEAKER) (test Negative Negative code = 462) BLOOD UA (BEAKER) (test code = Small Negative A 461) NITRITE UA (BEAKER) (test code Negative Negative = 465) LEUKOCYTE ESTERASE UA (BEAKER) Negative Negative (test code = 466) UROBILINOGEN UA (BEAKER) (test 0.2 0.2-1.0 code = 463) RBC UA (BEAKER) (test code = 6 /HPF 519) WBC UA (BEAKER) (test code = 1 /HPF 520) SQUAMOUS EPITHELIAL (BEAKER) < /HPF (test code = 516) SOURCE(BEAKER) (test code = Urine, Voided 5757) Bank Guard ID - [auto]Bank Guard ID - [id number] 18:50:12 Test Item Value Reference Range Interpretation Comments PROCALCITONIN (BEAKER) (test code = < ng/mL <0.05 3036) SEPSIS RISK (ng/mL)Low: 0.05-0.50Intermediate: 0.51-2.00High: >=2.01 COMPREHENSIVE METABOLIC [id number] 18:26:29 Test Item Value Reference Range Interpretation Comments TOTAL PROTEIN 7.6 gm/dL 6.0-8.3 Specimen sligh tly (BEAKER) (test hemolyzed code = 770) ALBUMIN (BEAKER) 4.2 g/dL 3.5-5.0 Specimen sl ightly (test code = 1145) hemolyzed ALKALINE 115 U/L 40-150 PHOSPHATASE (BEAKER) (test code = 346) BILIRUBIN TOTAL 0.6 mg/dL 0.2-1.2 Specimen sli ghtly (BEAKER) (test hemolyzed code = 377) SODIUM (BEAKER) 124 meq/L 136-145 L (test code = 381) POTASSIUM (BEAKER) 3.7 meq/L 3.5-5.1 Specimen slightly (test code = 379) hemolyzed CHLORIDE (BEAKER) 92 meq/L 98-107 L (test code = 382) CO2 (BEAKER) (test 21 meq/L 22-29 L code = 355) BLOOD UREA 7 mg/dL 7-21 NITROGEN (BEAKER) (test code = 354) CREATININE 0.78 mg/dL 0.57-1.25 Specimen slight ly (BEAKER) (test hemolyzed code = 358) GLUCOSE RANDOM 140 mg/dL 70-105 H (BEAKER) (test code = 652) CALCIUM (BEAKER) 8.8 mg/dL 8.4-10.2 (test code = 697) AST (SGOT) 27 U/L 5-34 Specimen slight ly (BEAKER) (test hemolyzed code = 353) ALT (SGPT) 23 U/L 6-55 Specimen slight ly (BEAKER) (test hemolyzed code = 347) EGFR (BEAKER) 85 Interpretatio n of eGFR (test code = 1092) mL/min/1.[address] age Description sq m Result G1 Jocelyn l or high >=90 G2 Mildly decreased 60-89 G3a Mildl y to moderately 45-5 9 G3b Moderately to s everely 30-44 G4 Severl y decreased 15-29 G5 Kidney failure <15Reported eGF R is based on the CKD-EPI 202 equation that d oes not use a race coefficientEsti mated GFR is not as accur ate as Creatinine Faby bland in predicting glom erular filtration rate . Estimated GFR is not appl icable for dialysis patien ts Bank Guard ID - [id number] 18:26:28 Test Item Value Reference Range Interpretation Comments MAGNESIUM (BEAKER) 1.3 mg/dL 1.6-2.6 L Specimen slightly (test code = 627) hemolyzed Bank Guard ID - [id number] 18:26:28 Test Item Value Reference Range Interpretation Comments PHOSPHORUS (BEAKER) 3.0 mg/dL 2.3-4.7 Specimen slightly (test code = 604) hemolyzed Bank Guard ID - BSCBC W/PLT COUNT & AUTO [id number] 18:02:00 Test Item Value Reference Range Interpretation Comments WHITE BLOOD CELL COUNT (BEAKER) 13.4 K/ L 3.5-10.5 H (test code = 775) RED BLOOD CELL COUNT (BEAKER) 4.31 M/ L 3.93-5.22 (test code = 761) HEMOGLOBIN (BEAKER) (test code = 12.6 GM/DL 11.2-15.7 410) HEMATOCRIT (BEAKER) (test code = 36.4 % 34.1-44.9 411) MEAN CORPUSCULAR VOLUME (BEAKER) 85 fL 79-95 (test code = 753) MEAN CORPUSCULAR HEMOGLOBIN 29.2 pg 25.6-32.2 (BEAKER) (test code = 751) MEAN CORPUSCULAR HEMOGLOBIN CONC 34.6 GM/DL 32.2-35.5 (BEAKER) (test code = 752) RED CELL DISTRIBUTION WIDTH 12.0 % 11.7-14.4 (BEAKER) (test code = 412) PLATELET COUNT (BEAKER) (test 244 K/CU MM 150-450 code = 756) MEAN PLATELET VOLUME (BEAKER) 8.3 fL 9.4-12.3 L (test code = 754) NUCLEATED RED BLOOD CELLS 0 /100 WBC 0-0 (BEAKER) (test code = 413) NEUTROPHILS RELATIVE PERCENT 86 % (BEAKER) (test code = 429) LYMPHOCYTES RELATIVE PERCENT 9 % (BEAKER) (test code = 430) MONOCYTES RELATIVE PERCENT 3 % (BEAKER) (test code = 431) EOSINOPHILS RELATIVE PERCENT 0 % (BEAKER) (test code = 432) BASOPHILS RELATIVE PERCENT 0 % (BEAKER) (test code = 437) NEUTROPHILS ABSOLUTE COUNT 11.53 K/ L 1.56-6.13 H (BEAKER) (test code = 670) LYMPHOCYTES ABSOLUTE COUNT 1.25 K/ L 1.18-3.74 (BEAKER) (test code = 414) MONOCYTES ABSOLUTE COUNT (BEAKER) 0.46 K/ L 0.24-0.36 H (test code = 415) EOSINOPHILS ABSOLUTE COUNT 0.01 K/ L 0.04-0.36 L (BEAKER) (test code = 416) BASOPHILS ABSOLUTE COUNT (BEAKER) 0.03 K/ L 0.01-0.08 (test code = 417) IMMATURE GRANULOCYTES-RELATIVE 0.50 % 0.00-1.00 PERCENT (BEAKER) (test code = 2801) MRA HEAD WITHOUT IV [id number] 17:16:27 [facility] : 1960 Sex: FMRA HeadCLINICAL HISTORY: Stroke, follow upTECHNIQUE: MRA of the head utilizing 3-D surk-ls-vzfiex technique with3-D reconstructions.COMPARISON: NoneFINDINGS:There is no evidence of intracranial aneurysm, critical stenosis, orlarge vessel occlusion. IMPRESSION:No large vessel occlusion.MRA NeckCLINICAL HISTORY: Stroke, follow upTECHNIQUE: MRA of the neck utilizing 2-D and 3-D rkep-wi-fuyjkdfwdwxojcv with 3-D reconstructions.COMPARISON: NoneFINDINGS:The internal carotid arteries in the neck are patent including theirbifurcations. There is antegrade flow in the vertebral arteries in the neck.IMPRESSION:No e vidence of hemodynamically significant stenosis in the cervicalcarotid or vertebral arteries by NASCET criteria.Electronically Signed By: Naman Chavez12/15/2022 17:18 CDTWorkstation Name: [id number] NECK WITHOUT IV CONTRAST 2022-12-15 17:16:27 [facility] : 1960 Sex: FMRA HeadCLINICAL HISTORY: Stroke, follow upTECHNIQUE: MRA of the head utilizing 3-D kzwr-ie-zploda technique with3-D reconstructions.COMPARISON: NoneFINDINGS:There is no evidence of intracranial aneurysm, critical stenosis, orlarge vessel occlusion. IMPRESSION:No large vessel occlusion.MRA NeckCLINICAL HISTORY: Stroke, follow upTECHNIQUE: MRA of the neck utilizing 2-D and 3-D belu-ga-dwhadsbgbyhhfzz with 3-D reconstructions.COMPARISON: NoneFINDINGS:The internal carotid arteries in the neck are patent including theirbifurcations. There is antegrade flow in the vertebral arteries in the neck.IMPRESSION:No e vidence of hemodynamically significant stenosis in the cervicalcarotid or vertebral arteries by NASCET criteria.Electronically Signed By: Naman Chavez12/15/2022 17:18 CDTWorkstation Name: [id number] BRAIN WITHOUT IV CONTRAST 2022-12-15 17:13:11 [facility] : 1960 Sex: FMRI Brain without contrastClinical History: Stroke, follow upTechnique: MRI of the brain utilizing axial T2, FLAIR, GRE, DWI;sagittal and coronal T1-weighted images.Comparisons: NoneFindings:There is no evidence of acute infarct or hemorrhage. There is mildperiventricular and subcortical white matter T2 hyperintensity, which isnonspecific but compatible with chronic microvascular ischemic change,with disproportionate pontine involvement. There is mild generalizedparenchymal volume loss without hydrocephalus, midline shift, orapparent mass effect. There are no extra-axial fluid collections. Thecraniocervical junction is preserved. The major intracranial flow-voidsappear patent. IMPRESSION:No evidence of acute infarct, hemorrhage, or hydrocephalus.Electronically Signed By: Naman Chavez12/15/2022 17:15 CDTWorkstation Name: [id number] 15:59:52 Test Item Value Reference Range Interpretation Comments RPR SCREEN ([employer]) (test code = Nonreactive Nonreactive 420) POCT-GLUCOSE [id number] 13:48:01 Test Item Value Reference Range Interpretation Comments POC-GLUCOSE METER 165 mg/dL 70-110 H : TESTED A T [facility] 6720 ([employer]) (test code [facility], = 1538) [address]: Bank Guard/Techni june ID = [id number] for Shelley Aquino HEMOGLOBIN [id number] 10:25:52 Test Item Value Reference Range Interpretation Comments HEMOGLOBIN A1C 5.1 % See_Comment [Automated m essage] ELECTROPHORESIS ([employer]) The system which (test code = 3811) generated this result transmitted ref erence range: <=5.6%. The reference range was not used to int erpret this result as normal/abnormal . "The A1c is measured using a [facility]-certified method. HbA1c value equal to or greater than 6.5% as thediagnosis cutoff for diabetes. An HbA1c value of 5.7- 6.4% indicates increased risk for diabetes (prediabetes)."Bank Guard ID - ADM TSH/FREE T4 IF [id number] 06:34:55 Test Item Value Reference Range Interpretation Comments THYROID STIMULATING HORMONE 1.898 uIU/mL 0.350-4.940 (BEAKER) (test code = 772) Bank Guard ID - MMVITAMIN [id number] 06:34:54 Test Item Value Reference Range Interpretation Comments VITAMIN B12 (BEAKER) (test code = 822 pg/mL 213-816 H 774) Bank Guard ID - MMBASIC METABOLIC [id number] 06:12:21 Test Item Value Reference Range Interpretation Comments SODIUM (BEAKER) 127 meq/L 136-145 L (test code = 381) POTASSIUM 3.8 meq/L 3.5-5.1 (BEAKER) (test code = 379) CHLORIDE (BEAKER) 94 meq/L 98-107 L (test code = 382) CO2 (BEAKER) 25 meq/L 22-29 (test code = 355) BLOOD UREA 6 mg/dL 7-21 L NITROGEN (BEAKER) (test code = 354) CREATININE 0.66 mg/dL 0.57-1.25 (BEAKER) (test code = 358) GLUCOSE RANDOM 136 mg/dL 70-105 H (BEAKER) (test code = 652) CALCIUM (BEAKER) 9.1 mg/dL 8.4-10.2 (test code = 697) EGFR (BEAKER) 99 Interpretatio n of eGFR (test code = mL/min/1.73 values Stage De scription 1092) sq m Result G1 Jocelyn l or high >=90 G2 Mildly decreased 60-89 G3a Mildl y to moderately 45-5 9 G3b Moderately to s everely 30-44 G4 Severl y decreased 15-29 G5 Kidney failure <15Reported eGF R is based on the CKD-EPI 202 equation that d oes not use a race coefficientEsti mated GFR is not as accur ate as Creatinine Faby baldo in predicting glom erular filtration rate . Estimated GFR is not appl icable for dialysis patien ts Bank Guard ID - MMCBC W/PLT COUNT & AUTO [id number] 06:05:08 Test Item Value Reference Range Interpretation Comments WHITE BLOOD CELL COUNT (BEAKER) 11.4 K/ L 3.5-10.5 H (test code = 775) RED BLOOD CELL COUNT (BEAKER) 4.01 M/ L 3.93-5.22 (test code = 761) HEMOGLOBIN (BEAKER) (test code = 11.6 GM/DL 11.2-15.7 410) HEMATOCRIT (BEAKER) (test code = 33.5 % 34.1-44.9 L 411) MEAN CORPUSCULAR VOLUME (BEAKER) 84 fL 79-95 (test code = 753) MEAN CORPUSCULAR HEMOGLOBIN 28.9 pg 25.6-32.2 (BEAKER) (test code = 751) MEAN CORPUSCULAR HEMOGLOBIN CONC 34.6 GM/DL 32.2-35.5 (BEAKER) (test code = 752) RED CELL DISTRIBUTION WIDTH 12.1 % 11.7-14.4 (BEAKER) (test code = 412) PLATELET COUNT (BEAKER) (test 281 K/CU MM 150-450 code = 756) MEAN PLATELET VOLUME (BEAKER) 8.8 fL 9.4-12.3 L (test code = 754) NUCLEATED RED BLOOD CELLS 0 /100 WBC 0-0 (BEAKER) (test code = 413) NEUTROPHILS RELATIVE PERCENT 81 % (BEAKER) (test code = 429) LYMPHOCYTES RELATIVE PERCENT 14 % (BEAKER) (test code = 430) MONOCYTES RELATIVE PERCENT 4 % (BEAKER) (test code = 431) EOSINOPHILS RELATIVE PERCENT 0 % (BEAKER) (test code = 432) BASOPHILS RELATIVE PERCENT 0 % (BEAKER) (test code = 437) NEUTROPHILS ABSOLUTE COUNT 9.23 K/ L 1.56-6.13 H (BEAKER) (test code = 670) LYMPHOCYTES ABSOLUTE COUNT 1.60 K/ L 1.18-3.74 (BEAKER) (test code = 414) MONOCYTES ABSOLUTE COUNT (BEAKER) 0.43 K/ L 0.24-0.36 H (test code = 415) EOSINOPHILS ABSOLUTE COUNT 0.01 K/ L 0.04-0.36 L (BEAKER) (test code = 416) BASOPHILS ABSOLUTE COUNT (BEAKER) 0.03 K/ L 0.01-0.08 (test code = 417) IMMATURE GRANULOCYTES-RELATIVE 0.40 % 0.00-1.00 PERCENT (BEAKER) (test code = 2801) [id number] 05:55:33 Test Item Value Reference Range Interpretation Comments PROTIME (BEAKER) (test code = 14.1 seconds 11.9-14.2 759) INR (BEAKER) (test code = 370) 1.16 <=5.90 PARTIAL THROMBOPLASTIN TIME 28.6 seconds 22.5-36.0 (BEAKER) (test code = 760) RECOMMENDED COUMADIN/WARFARIN INR THERAPY RANGESSTANDARD DOSE: 2.0 - 3.0 Includes: PROPHYLAXIS for venous thrombosis, systemic embolization; TREATMENT for venous thrombosis and/or pulmonary embolus.HIGH RISK: Target INR is 2.5-3.5 for patients with mechanical heart valves.PROTHROMBIN [id number] 05:54:57 Test Item Value Reference Range Interpretation Comments PROTIME (BEAKER) (test code = 14.1 seconds 11.9-14.2 759) INR (BEAKER) (test code = 370) 1.16 <=5.90 RECOMMENDED COUMADIN/WARFARIN INR THERAPY RANGESSTANDARD DOSE: 2.0 - 3.0 Includes: PROPHYLAXIS for venous thrombosis, systemic embolization; TREATMENT for venous thrombosis and/or pulmonary embolus.HIGH RISK: Target INR is 2.5-3.5 for patients with mechanical heart valves.
--- NOTE | 2022-12-26 19:02 | RAD REPORT ---
EXAM DESCRIPTION: CT - Ct Stroke Brain Wo Cont - 12/26/2022 6:50 pm CLINICAL HISTORY: Slurred speech COMPARISON: December 15, 2022 TECHNIQUE: Computed axial tomography of the head was obtained. All CT scans are performed using dose optimization technique as appropriate and may include automated exposure control or mA/KV adjustment according to patient size. FINDINGS: An intracranial bleed is not seen . The ventricles are normal in caliber. No extra-axial fluid collection is noted. No significant hypodensity within the brain is seen Fluid within the sinuses/ mastoids is not seen. IMPRESSION: No acute intracranial abnormality is seen. If patient's symptoms persist MRI of the bra in would be recommended Dr Kan of the emergency room was notified at 6:55 p.m. December 26, 2022
--- NOTE | 2022-12-26 19:37 | RAD REPORT ---
EXAM DESCRIPTION: Fannie Single View12/26/2022 7:21 pm CLINICAL HISTORY: cough COMPARISON: December 15, 2022 FINDINGS: The lungs appear clear of acute infiltrate. The heart is normal size IMPRESSION: No acute abnormalities displayed
[2022-12-26] MEDS ORDERED: ACETAMINOPHEN 325 MG TABLET ONE (19:50)
[2022-12-26] MEDS ORDERED: FOLIC ACID 5 MG/ML VIAL ONE (19:52)
[2022-12-26] MEDS ORDERED: NA CHLORIDE 0.9% 1,000 ML ONE (19:53)
[2022-12-26 20:05] LABS: Absolute Lymphocytes (CBC) 1.4 K/uL (0.7-4.9); Lymphocytes % 18.8 % (15.3-44.8); MCV 86.3 fL (80-100); MPV 7.3 fL (7.6-11.3); RBC Red Blood Cell Count 3.82 M/uL (3.86-4.86)
[2022-12-26 20:24] LABS: ALT/SGPT 86 U/L (13-56); Alkaline Phosphatase 142 U/L (45-117); BUN Blood Urea Nitrogen 11 mg/dL (7-18); Bicarbonate 22 mEq/L (21-32); Bilirubin Direct 0.3 mg/dL (0-0.2); Bilirubin Total 1.3 mg/dL (0.2-1.0); Glomerular Filtration Rate 105 ml/min (=/>90); Glucose Level 120 mg/dL (74-106); NT PRO-BNP 44 pg/mL (<125); Protein, Total 7.7 g/dL (6.4-8.2); Sodium Level 125 mEq/L (136-145); Troponin High Sensitivity 4.3 pg/mL (<58.9)
[2022-12-26 20:25] LABS: AST/SGOT 43 U/L (15-37); C-Reactive Protein < 2.90 mg/L (<3.00); Magnesium 1.2 mg/dL (1.6-2.4); Potassium 3.4 mEq/L (3.5-5.1)
--- NOTE | 2022-12-26 20:39 | EDPHYS ---
Physician Documentation [facility] Name: Gladys Blevins Age: 62 yrs Sex: Female : 1960 Arrival Date: 12/26/2022 Time: 17:39 Bed 6 Private MD: ED Physician David Kan HPI: 12/26 20:00 This 62 yrs old Female presents to ER via Ambulatory with complaints of cecy Confusion, S/S of Possible Stroke. 20:00 The patient's problem is reported as weakness, that is generalized, CONFUSED. Onset: cecy The symptoms/episode began/occurred 7 day(s) ago. Duration: The episodes are intermittent. Context: the episode(s) was witnessed, by family, . The symptoms are alleviated by nothing. The symptoms are aggravated by nothing. Associated signs and symptoms: Pertinent positives: confusion, headache. Severity of symptoms: At their worst the symptoms were mild moderate in the emergency department the symptoms have improved moderately. Patient's baseline: Neuro: alert and fully oriented. The patient has experienced a previous episode, last week. Historical: - Allergies: 18:32 Sulfa (Sulfonamide Antibiotics); cm10 - PMHx: 18:32 Asthma; cm10 - Immunization history:: Adult Immunizations unknown. - Social history:: Smoking status: unknown. ROS: 20:02 Constitutional: Negative for fever, chills, and weight loss, Eyes: Negative for injury, cecy pain, redness, and discharge, ENT: Negative for injury, pain, and discharge, Neck: Negative for injury, pain, and swelling, Cardiovascular: Negative for chest pain, palpitations, and edema, Respiratory: Negative for shortness of breath, cough, wheezing, and pleuritic chest pain, Abdomen/GI: Negative for abdominal pain, nausea, vomiting, diarrhea, and constipation, Back: Negative for injury and pain, : Negative for injury, bleeding, discharge, and swelling, MS/Extremity: Negative for injury and deformity, Skin: Negative for injury, rash, and discoloration, Psych: Negative for depression, anxiety, suicide ideation, homicidal ideation, and hallucinations, Allergy/Immunology: Negative for hives, rash, and allergies, Endocrine: Negative for neck swelling, polydipsia, polyuria, polyphagia, and marked weight changes, Hematologic/Lymphatic: Negative for swollen nodes, abnormal bleeding, and unusual bruising. 20:02 Neuro: Positive for altered mental status, weakness. Exam: 20:02 Radiologist reports: LEISA sam 20:02 Constitutional: This is a well developed, well nourished patient who is awake, alert, and in no acute distress. Head/Face: Normocephalic, atraumatic. Eyes: Pupils equal round and reactive to light, extra-ocular motions intact. Lids and lashes normal. Conjunctiva and sclera are non-icteric and not injected. Cornea within normal limits. Periorbital areas with no swelling, redness, or edema. ENT: Nares patent. No nasal discharge, no septal abnormalities noted. Tympanic membranes are normal and external auditory canals are clear. Oropharynx with no redness, swelling, or masses, exudates, or evidence of obstruction, uvula midline. Mucous membranes moist. Neck: Trachea midline, no thyromegaly or masses palpated, and no cervical lymphadenopathy. Supple, full range of motion without nuchal rigidity, or vertebral point tenderness. No Meningismus. Chest/axilla: Normal chest wall appearance and motion. Nontender with no deformity. No lesions are appreciated. Cardiovascular: Regular rate and rhythm with a normal S1 and S2. No gallops, murmurs, or rubs. Normal PMI, no JVD. No pulse deficits. Respiratory: Lungs have equal breath sounds bilaterally, clear to auscultation and percussion. No rales, rhonchi or wheezes noted. No increased work of breathing, no retractions or nasal flaring. Abdomen/GI: Soft, non-tender, with normal bowel sounds. No distension or tympany. No guarding or rebound. No evidence of tenderness throughout. Back: No spinal tenderness. No costovertebral tenderness. Full range of motion. Female : Normal external genitalia. Skin: Warm, dry with normal turgor. Normal color with no rashes, no lesions, and no evidence of cellulitis. MS/ Extremity: Pulses equal, no cyanosis. Neurovascular intact. Full, normal range of motion. Psych: Awake, alert, with orientation to person, place and time. Behavior, mood, and affect are within normal limits. 20:02 ECG was reviewed by the Attending Physician. 20:02 Neuro: Orientation: to person, place, situation, Not oriented to time, Mentation: confused, Memory: immediate memory is impaired, remote memory is impaired, recent memory the patient can't recall what they had for dinner last night, Gait: not tested. Deep tendon reflexes are 1 (trace) + in the bilateral brachioradialis, bicep, tricep and patellar and Achilles tendons, seizure activity, is not displayed by the patient. Vital Signs: 18:30 BP 135 / 75; Pulse 70; Resp 18; Temp 98; Pulse Ox 100% ; Weight 57.15 kg; Height 4 ft. cm10 10 in. ; 19:54 BP 140 / 68; Pulse 78; Resp 18; Pulse Ox 100% on R/A; as6 21:00 BP 136 / 69; Pulse 83; Resp 17 S; Pulse Ox 100% on R/A; jw7 22:09 BP 122 / 63; Pulse 74; Resp 19 S; Pulse Ox 100% on R/A; jw7 23:01 BP 107 / 56; Pulse 72; Resp 18 S; Pulse Ox 100% on R/A; jw7 18:30 Body Mass Index 26.33 (57.15 kg, 147.32 cm) cm10 NIH Stroke Scale Scores: 20:40 NIHSS Score: 0 cecy MDM: 18:42 Patient medically screened. cecy 20:04 Differential diagnosis: CVA, TIA, Dementia, paralysis, metabolic disorder. Differential cecy Diagnosis: CVA, electrolyte abnormality, pneumonia, seizure, sepsis, TIA, UTI, volume depletion. Data reviewed: vital signs, nurses notes. Consideration of Admission/Observation Patient was admitted/placed on observation. Escalation of care including admission/observation considered. Management of patient was discussed with the following: Hospitalist: SARAH COLBERT. I considered the following discharge prescriptions or medication management in the emergency department Medications were administered in the Emergency Department. See MAR. Independent interpretation of the following test(s) in the Emergency Department EKG: See my EKG interpretation above. Test considered but Not performed: MRI: NO MRI. Care significantly affected by the following chronic conditions: ASTHMA. 12/26 18:44 Order name: Basic Metabolic Panel; Complete Time: 20:35 cecy 12/26 18:44 Order name: CBC with Diff; Complete Time: 20:06 cecy 12/26 18:44 Order name: LFT's; Complete Time: 20:35 cecy 12/26 18:44 Order name: Magnesium; Complete Time: 20:35 cecy 12/26 18:44 Order name: NT PRO-BNP; Complete Time: 20:35 cecy 12/26 18:44 Order name: PT-INR; Complete Time: 10:30 cecy 12/26 18:44 Order name: Troponin HS; Complete Time: 20:35 cecy 12/26 18:44 Order name: CRP; Complete Time: 20:35 cecy 12/26 18:44 Order name: Urinalysis w/ reflexes; Complete Time: 10:30 cecy 12/26 19:12 Order name: CREATININE WHOLE BLOOD; Complete Time: 19:46 EDMS 12/26 19:58 Order name: Osmolality, Serum; Complete Time: 10:30 cecy 12/26 19:58 Order name: Urine Osmolality; Complete Time: 10:30 cecy 12/26 19:58 Order name: Urine Sodium Random; Complete Time: 10:30 cecy 12/26 21:07 Order name: Urine W/Microscopic (UAM) vc1 12/27 01:28 Order name: Basic Metabolic Panel; Complete Time: 10:30 EDMS 12/27 05:50 Order name: CBC with Automated Diff; Complete Time: 10:30 EDMS 12/27 05:59 Order name: Comprehensive Metabolic Panel; Complete Time: 10:30 EDMS 12/27 05:59 Order name: Phosphorus; Complete Time: 10:30 EDMS 12/27 05:59 Order name: T4 Free; Complete Time: 10:30 EDMS 12/27 05:59 Order name: Magnesium; Complete Time: 10:30 EDMS 12/27 05:59 Order name: Thyroid Stimulating Hormone; Complete Time: 10:30 EDMS 12/27 11:58 Order name: Cortisol; Complete Time: 12:42 EDMS 12/27 13:42 Order name: Basic Metabolic Panel EDMS 12/26 18:44 Order name: XRAY Chest (1 view); Complete Time: 19:46 cecy 12/26 18:44 Order name: CT Stroke Brain w/o Contrast; Complete Time: 19:46 cecy 12/26 18:44 Order name: CT Head Angio; Complete Time: 20:46 cecy 12/26 18:44 Order name: CT Neck Angio; Complete Time: 20:46 cecy 12/26 18:44 Order name: EKG; Complete Time: 18:45 cecy 12/26 18:44 Order name: Cardiac monitoring; Complete Time: 19:54 cecy 12/26 18:44 Order name: EKG - Nurse/Tech; Complete Time: 19:19 [facility] 12/26 18:44 Order name: IV Saline Lock; Complete Time: :54 [facility] 12/26 18:44 Order name: Labs collected and sent; Complete Time: :54 [facility] 12/26 18:44 Order name: O2 Per Protocol; Complete Time: :54 [facility] 12/26 18:44 Order name: O2 Sat Monitoring; Complete Time: :54 [facility] EC:02 Rate is 72 beats/min. Rhythm is regular. QRS Ermine is Normal. RI interval is normal. QRS cecy interval is normal. QT interval is normal. No Q waves. T waves are Normal. No ST changes noted. Clinical impression: NSR w/ Non-specific ST/T Changes and No evidence of ischemia. Interpreted by me. Reviewed by me. Administered Medications: 19:53 Drug: NS 0.9% IV 1000 ml Route: IV; Rate: 1 bolus; Site: left upper arm; as6 22:10 Follow up: Response: No adverse reaction; IV Status: Completed infusion; IV Intake: jw7 1000ml 19:53 Drug: foLIC Acid IVPB 1 mg Route: IVPB; Site: left upper arm; as6 22:09 Follow up: Response: No adverse reaction jw7 22:10 Follow up: Response: No adverse reaction; IV Status: Completed infusion; IV Intake: 1ml jw7 19:53 Drug: Acetaminophen PO 650 mg Route: PO; as6 22:11 Follow up: Response: No adverse reaction jw7 20:56 Drug: Famotidine IVP 20 mg Route: IVP; Site: left upper arm; jw7 22:11 Follow up: Response: No adverse reaction jw7 20:57 Drug: Aspirin PO 162 mg Route: PO; jw7 22:11 Follow up: Response: No adverse reaction jw7 22:09 Drug: Potassium PO Effervescent Tablet 25 mEq Route: PO; jw7 23:10 Follow up: Response: No adverse reaction jw7 22:09 Drug: Magnesium Sulfate IVPB 2 grams Route: IVPB; Infused Over: 2 hrs; Site: left upper [facility] arm; Disposition Summary: 12/26/22 20:38 Hospitalization Ordered Hospitalization Status: Inpatient Admission cecy Condition: Fair cecy Problem: new cecy Symptoms: have improved cecy Bed/Room Type: Standard cecy Provider: Nichol Bradshaw12/26/22 20:46) lm1 Location: [facility] ER HOLD(12/26/22 23:30) cg Room Assignment: ERHOLD-(12/26/22 23:30) cg Diagnosis - Weakness cecy - Altered mental status, unspecified cecy - Hypomagnesemia cecy - Hypokalemia cecy - Hypo-osmolality and hyponatremia cecy Forms: - Medication Reconciliation Form cecy - SBAR form cecy NIH Stroke Scale - NIH Stroke Score Date: 12/26/2022 Time: 20:40 Total Score = 0 10. Dysarthria (speech clarity - read or repeat words) - 0(Normal) 11. Extinction and Inattention (visual/tactile/auditory/spatial/personal) - 0(No abnormality) 1a. Level of Consciousness (LOC) - 0(Alert) 1b. Level of Consciousness (LOC) (Month \T\ Age) - 0(Both) 1c. LOC Commands (Open \T\ Closes Eyes/Blind Hanger) - 0(Both) 2. Best Gaze (Lateral Gaze Paresis) - 0(Normal) 3. Visual Field Loss - 0(No visual loss) 4. Facial Palsy - 0(Normal) 5a. Left Arm: Motor (10-second hold) - 0(No drift) 5b. Right Arm: Motor (10-second hold) - 0(No drift) 6a. Left Leg: Motor (5-second hold - always test supine) - 0(No drift) 6b. Right Leg: Motor (5-second hold - always test supine) - 0(No drift) 7. Limb Ataxia (finger/nose \T\ heel/terrell - test with eyes open) - 0(Absent) 8. Sensory Loss (pinprick arms/legs/face) - 0(Normal) 9. Best Language: Aphasia (description/naming/reading) - 0(No aphasia) Initials: cecy Signatures: Dispatcher [employer] EDMS David Kan MD MD cha Attema, Lee, LOCKSTITCH CUP SETTER-C LOCKSTITCH CUP SETTER-Cla1 Yue Cabrales, RN RN cg Prudencio Sibley, RODY RN as6 Olive Graham, RN RN jw7 Ashlyn Mcneil, RN RN cm10 Corrections: (The following items were deleted from the chart) 20:46 20:38 Kwadwo Alejo cha1 23:30 20:38 Telemetry/MedSurg ([place]) [facility] [place] :30 20:38 [facility] [place]
--- NOTE | 2022-12-26 20:39 | ER ---
Nurse's Notes [facility] Name: Gladys Blevins Age: 62 yrs Sex: Female : 1960 Arrival Date: 12/26/2022 Time: 17:39 Bed 6 Private MD: Diagnosis: Weakness;Altered mental status, unspecified;Hypomagnesemia;Hypokalemia;Hypo-osmolality and hyponatremia Presentation: 12/26 18:30 Chief complaint: Spouse and/or significant other states: Pt was seen here last week and cm10 transferred to [facility] for a possible stroke and discharged on Sunday with the diagnosis of "electrolyte imbalance." Pt's states that pt had an episode at approximately 1500 with pt speaking "giberish". Pts states that pt's confusion has gotten worse. Pt received TNK on 12/14. Coronavirus screen: Client denies travel out of the [place] in the last 14 days. Ebola Screen: No symptoms or risks identified at this time. Initial Sepsis Screen: Does the patient meet any 2 criteria? No. Patient's initial sepsis screen is negative. Does the patient have a suspected source of infection? No. Patient's initial sepsis screen is negative. Risk Assessment: Do you want to hurt yourself or someone else? Patient reports no desire to harm self or others. Onset of symptoms was December 26, 2022. 18:30 Method Of Arrival: Ambulatory cm10 18:30 Acuity: BRE 3 cm10 Historical: - Allergies: 18:32 Sulfa (Sulfonamide Antibiotics); cm10 - PMHx: 18:32 Asthma; cm10 - Immunization history:: Adult Immunizations unknown. - Social history:: Smoking status: unknown. Screenin:38 Abuse screen: Denies threats or abuse. Denies injuries from another. Nutritional iw screening: No deficits noted. Tuberculosis screening: No symptoms or risk factors identified. 12/27 00:28 [facility] ED Fall Risk Assessment (Adult) Score/Fall Risk Level 0 - 2 = Low Risk. as6 Assessment: 12/26 18:39 Reassessment: code stroke called, pt to CT scan via stretcher. iw 19:30 General: Appears in no apparent distress. comfortable, Behavior is calm, cooperative, jw7 flat, quiet. Pain: Complains of pain in head Quality of pain is described as aching. Neuro: Level of Consciousness is awake, alert, obeys commands, confused, Oriented to person, place, time, situation, Speech is normal, Reports headache. Cardiovascular: Capillary refill < 3 seconds Patient's skin is warm and dry. Cardiovascular: Heart tones S1 S2 present. Respiratory: Airway is patent Trachea midline Respiratory effort is even, unlabored, Respiratory pattern is regular, symmetrical, Breath sounds are clear bilaterally. Derm: Bruising that is dark purple, yellow, on right arm and left arm. 21:00 Reassessment: Patient appears in no apparent distress at this time. Patient and/or jw7 family updated on plan of care and expected duration. Pain level reassessed. Patient is alert, oriented x 3, equal unlabored respirations, skin warm/dry/pink. 23:09 Reassessment: Patient appears in no apparent distress at this time. Patient is alert, jw7 oriented x 3, equal unlabored respirations, skin warm/dry/pink. 23:09 Reassessment: Patient states feeling better. Patient states symptoms have improved. jw7 Vital Signs: 18:30 BP 135 / 75; Pulse 70; Resp 18; Temp 98; Pulse Ox 100% ; Weight 57.15 kg; Height 4 ft. cm10 10 in. ; 19:54 BP 140 / 68; Pulse 78; Resp 18; Pulse Ox 100% on R/A; as6 21:00 BP 136 / 69; Pulse 83; Resp 17 S; Pulse Ox 100% on R/A; jw7 22:09 BP 122 / 63; Pulse 74; Resp 19 S; Pulse Ox 100% on R/A; jw7 23:01 BP 107 / 56; Pulse 72; Resp 18 S; Pulse Ox 100% on R/A; jw7 18:30 Body Mass Index 26.33 (57.15 kg, 147.32 cm) cm10 NIH Stroke Scale Scores: 20:40 NIHSS Score: 0 [facility] ED Course: 17:39 Patient arrived in ED. rg4 18:32 Triage completed. cm10 18:34 Arm band placed on Patient placed in an exam room, on a stretcher. cm10 18:38 Patient has correct armband on for positive identification. Bed in low position. Call iw light in reach. Side rails up X2. Adult w/ patient. 18:42 David Kan MD is Attending Physician. cecy 18:50 Missed attempt(s): 20 gauge in left antecubital area. Missed attempt(s): 22 gauge in iw right forearm. Missed attempt(s): 22 gauge in left forearm. 18:52 CT Stroke Brain w/o Contrast In Process Unspecified. EDMS 18:59 Radiology exam delayed due to IV insertion attempt and/or patient not having ls3 appropriate IV at this time. 19:00 Report given to RODY Flannery \\T\\ RODY Pereira. iw 19:23 XRAY Chest (1 view) In Process Unspecified. EDMS 19:30 Inserted saline lock: 18 gauge in left upper arm, using aseptic technique. Blood as6 collected. powder glide midline, 18g 10cm. 19:38 Prudencio Sibley RN is Primary Nurse. as6 20:24 CT Head Angio In Process Unspecified. EDMS 20:25 CT Neck Angio In Process Unspecified. EDMS 20:38 Kwadwo Alejo MD is Hospitalizing Provider. [facility] 20:46 Tu Bradshaw MD is Hospitalizing Provider. la1 21:47 Urine collected: clean catch specimen, clear, dylon colored. jw7 21:47 Urine W/Microscopic (UAM) Sent. jw7 21:47 Urine Sodium Random Sent. jw7 21:47 Urine Osmolality Sent. jw7 21:47 Osmolality, Serum Sent. jw7 08 00:28 No provider procedures requiring assistance completed. Patient admitted, IV remains in as6 place. 00:29 Provided Education on: need for admit. as6 07:22 Primary Nurse role handed off by Prudencio Sibley RN bp 07:22 Patrick Brambila RN is Primary Nurse. bp Administered Medications: 12/26 19:53 Drug: NS 0.9% IV 1000 ml Route: IV; Rate: 1 bolus; Site: left upper arm; as6 22:10 Follow up: Response: No adverse reaction; IV Status: Completed infusion; IV Intake: jw7 1000ml 19:53 Drug: foLIC Acid IVPB 1 mg Route: IVPB; Site: left upper arm; as6 22:09 Follow up: Response: No adverse reaction jw7 22:10 Follow up: Response: No adverse reaction; IV Status: Completed infusion; IV Intake: 1ml jw7 19:53 Drug: Acetaminophen PO 650 mg Route: PO; as6 22:11 Follow up: Response: No adverse reaction jw7 20:56 Drug: Famotidine IVP 20 mg Route: IVP; Site: left upper arm; jw7 22:11 Follow up: Response: No adverse reaction jw7 20:57 Drug: Aspirin PO 162 mg Route: PO; jw7 22:11 Follow up: Response: No adverse reaction jw7 22:09 Drug: Potassium PO Effervescent Tablet 25 mEq Route: PO; jw7 23:10 Follow up: Response: No adverse reaction jw7 22:09 Drug: Magnesium Sulfate IVPB 2 grams Route: IVPB; Infused Over: 2 hrs; Site: left upper jw arm; Medication: 12/27 00:29 VIS not applicable for this client. as6 Intake: 12/26 22:10 IV: 1ml; Total: 1ml. jw7 22:10 IV: 1000ml; Total: 1001ml. jw7 Outcome: 20:38 Decision to Hospitalize by Provider. [facility] 12/27 00:29 Admitted to ER Hold. Please see [facility] for further documentation. as6 Condition: stable Instructed on the need for admit. 15:07 Patient left the ED. bp NIH Stroke Scale - NIH Stroke Score Date: 12/26/2022 Time: 20:40 Total Score = 0 10. Dysarthria (speech clarity - read or repeat words) - 0(Normal) 11. Extinction and Inattention (visual/tactile/auditory/spatial/personal) - 0(No abnormality) 1a. Level of Consciousness (LOC) - 0(Alert) 1b. Level of Consciousness (LOC) (Month \\T\\ Age) - 0(Both) 1c. LOC Commands (Open \\T\\ Closes Eyes/Director Graphics) - 0(Both) 2. Best Gaze (Lateral Gaze Paresis) - 0(Normal) 3. Visual Field Loss - 0(No visual loss) 4. Facial Palsy - 0(Normal) 5a. Left Arm: Motor (10-second hold) - 0(No drift) 5b. Right Arm: Motor (10-second hold) - 0(No drift) 6a. Left Leg: Motor (5-second hold - always test supine) - 0(No drift) 6b. Right Leg: Motor (5-second hold - always test supine) - 0(No drift) 7. Limb Ataxia (finger/nose \\T\\ heel/terrell - test with eyes open) - 0(Absent) 8. Sensory Loss (pinprick arms/legs/face) - 0(Normal) 9. Best Language: Aphasia (description/naming/reading) - 0(No aphasia) Initials: cecy Signatures: Dispatcher [employer] David Gonzales MD MD cha Williams, Irene, RN RN iw Akin Wakefield, INTERIOR PLANT CARETAKER-C INTERIOR PLANT CARETAKER-Cla1 Radha Cabrales rg4 Patrick Brambila RN RN bp Lazaro Mena ls3 Prudencio Sibley RN RN as6 Olive Graham RN RN jw7 Ashlyn Mcneil RN RN cm10 Corrections: (The following items were deleted from the chart) 12/26 18:34 18:30 Chief complaint: Spouse and/or significant other states: Pt was seen here cm10 last week and transferred to [facility] for a possible stroke and discharged on Sunday. Pt's states that pt had an episode at approximately 1500 with pt speaking "giberish". Pts states that pt's confusion has gotten worse. 10 23:09 23:09 Reassessment: Patient appears in no apparent distress at this time. jw7 Patient is alert, oriented x 3, equal unlabored respirations, skin warm/dry/pink. jw7
--- NOTE | 2022-12-26 20:40 | RAD REPORT ---
EXAM DESCRIPTION: Bruce Angio12/26/2022 8:23 pm CLINICAL HISTORY: Slurred speech/cva COMPARISON: November TECHNIQUE: 100 cc Isovue 370 was administered intravenously. 3D MIP reconstruction performed All CT scans are performed using dose optimization technique as appropriate and may include automated exposure control or mA/KV adjustment according to patient size. FINDINGS: Common carotid, external carotid and proximal and mid internal carotid arteries bilaterall y are unremarkable. Left vertebral artery is hypoplastic. No high-grade stenosis No dissection IMPRESSION: Unremarkable exam NASCET criteria used. Mild 0-49% stenosis Moderate 50-69% stenosis Severe 70-99% stenosis
--- NOTE | 2022-12-26 20:44 | RAD REPORT ---
EXAM DESCRIPTION: CTHead angio12/26/2022 8:23 pm CLINICAL HISTORY: Slurred speech/CVA COMPARISON: December 15, 2022 TECHNIQUE: 100 cc Isovue [address] angiogram of the head was obtained. 3D MIPS reconstruction performed. All CT scans are performed using dose optimization technique as appropriate and may include automated exposure control or mA/KV adjustment according to patient size. FINDINGS: The basilar, anterior cerebral, middle cerebral and posterior cerebral arteries do not dem onstrate a significant abnormality Mild calcified plaque distal internal carotid arteries An aneurysm is not seen A significant stenosis is not noted. No large vessel occlusion IMPRESSION: No significant abnormality is displayed
[2022-12-26] MEDS ORDERED: ASPIRIN EC 81 MG TAB PO ONE (20:47)
[2022-12-26] MEDS ORDERED: FAMOTIDINE 20 MG/2 ML VIAL IV ONE (20:47)
[2022-12-26] MEDS ORDERED: POTASSIUM 25 MEQ EFFERV TAB ONE (22:01)
[2022-12-26] MEDS ORDERED: Magnesium Sulfate 2gm IVPB 2 G/50 ML BAG IV ONE (22:02)
[2022-12-26] MEDS ORDERED: NA CHLORIDE 0.9% 0 ML ONE (22:02)
[2022-12-26 22:03] LABS: Specific Gravity 1.027 (1.005-1.030); Urine Bacteria <20 /HPF (<20); Urine Bilirubin NEGATIVE (Negative); Urine Blood Negative (Negative); Urine Clarity Clear (Clear); Urine Color Yellow (Yellow); Urine Glucose NEGATIVE (Negative); Urine Protein NEGATIVE (Negative); Urine RBC <5 /HPF (None Seen); Urine Urobilinogen Normal (Normal); Urine pH 7.5 (5.0-7.0)
[2022-12-26 22:52] LABS: Protime INR 1.15
[2022-12-27] MEDS ORDERED: ONDANSETRON 4 MG/2 ML VIAL IV PRN (00:23)
[2022-12-27 00:30] VITALS: BMI 26.3
[2022-12-27 01:18] LABS: Potassium 3.9 mEq/L (3.5-5.1)
[2022-12-27 03:51] VITALS: TEMP 98.2
[2022-12-27] MEDS ORDERED: NA CHLORIDE 0.9% 1,000 ML IV SCH (05:00)
[2022-12-27 05:29] LABS: Hematocrit 30.4 % (36.0-45.0); Lymphocytes % 39.8 % (15.3-44.8); MCV 85.8 fL (80-100); MPV 6.9 fL (7.6-11.3); RBC Red Blood Cell Count 3.54 M/uL (3.86-4.86)
[2022-12-27 05:58] LABS: Albumin 3.4 g/dL (3.4-5.0); Bilirubin Total 0.7 mg/dL (0.2-1.0); Magnesium 2.3 mg/dL (1.6-2.4); Potassium 3.4 mEq/L (3.5-5.1); Protein, Total 6.7 g/dL (6.4-8.2); Thyroid Stimulating Hormone 0.929 uIU/mL (0.358-3.740)
--- NOTE | 2022-12-27 07:51 | P.PN ---
Date of Service: 12/27/22 Subjective: feeling a little better today; responding to questions appropriately denies pain, no nausea/vomiting/diarrhea confusion worsened yesterday; family reports nonsensical speech +headache ROS: 10 point ROS as noted above, otherwise negative Physical Exam: GEN: Alert, orientedx2, NAD HEENT: Normal conjunctiva, sclera anicteric CV: Regular rate and rhythm, no edema Pulm: Nonlabored respirations on room air ABD: Soft, nontender, nondistended MSK: No joint tenderness Integumentary: No rashes Neuro: Normal speech, normal affect vitals reviewed Problem List: Hyponatremia Hypokalemia Hypomagnesemia Metabolic encephalopathy Aphasia Hypothyroidism Hyperlipidemia Hyponatremia Hypokalemia Hypomagnesemia Electrolytes replaced in ED, additional studies ordered for sodium. Patient not on any diuretics, reports good oral intake until today. No clear etiology of hyponatremia. nephrology consulted cont IVF Metabolic encephalopathy Aphasia, resolved Likely related to metabolic derangements. Had recent extensive work[place] at [facility] [place]. UA unremarkable CT head (12/26): negative for acute findings CTA head/neck (12/26): Both negative for any acute findings MRI brain ordered (12/26): r/o CVA Cont aspirin, statin Hypothyroidism Hyperlipidemia Continue home medication. VTE: Lovenox Code: Full Dispo: Home
[2022-12-27] MEDS ORDERED: KCL 20 MEQ/100 mL IVPB 20 MEQ/100 ML BAG IV SCH (08:00)
[2022-12-27] MEDS ORDERED: NA CHLORIDE 0.9% 1,000 ML ONE (08:40)
[2022-12-27] MEDS ORDERED: KCL 20 MEQ/100 mL IVPB 100 ML IV ONE (08:41)
[2022-12-27] MEDS ORDERED: ENOXAPARIN 40 MG/0.4 ML SQ SCH (09:00)
[2022-12-27] MEDS ORDERED: ASPIRIN EC 81 MG TAB PO SCH (09:00)
[2022-12-27] MEDS ORDERED: ENOXAPARIN 40 MG/0.4 ML SQ ONE (10:50)
[2022-12-27] MEDS ORDERED: ASPIRIN EC 81 MG TAB PO ONE (10:50)
[2022-12-27 12:02] VITALS: BP 106/62
--- NOTE | 2022-12-27 13:21 | P.DS ---
Admission Date: 12/26/22 Discharge Date: 12/27/22 Disposition: TRANSFER TO [facility] Discharge Condition: FAIR Consultations: Nephrology - Dr. Garcia Neurology - Dr. Wren Brief History of Present Illness: 62 yo F, PMH: asthma, hypothyroidism, hyperlipidemia presents emergency department chief complaint of altered mental status, aphasia. She was recently seen at our hospital on 12/15/2022 and given TNK for suspected CVA subsequently transferred to [place] where she stayed at [facility] for approximately 1 week and was discharged on 12/22/2022. During her stay she had an extensive work-up including MRI, EEG, echocardiogram, lumbar puncture. She was told that she likely did not have a CVA and her confusion was deemed secondary to her hyponatremia, her initial sodium level was 126 at our facility, 124 at their fa cility. At discharge on 12/14/2022 her sodium was 130, today it is 125. Her reports that she has been mildly confused since the initial incident but today around 1500 she was trying to ask for the TV remote and could not seem to get the words out also her confusion seem to be mildly worse for that reason they came to the emergency department. She was evaluated here again in the emergency department her labs were significant for sodium 136 potassium [address] head without contrast as well as CT head neck angiogram were negative for signs of CVA or large vessel occlusion. Hospital Course: Problem List: Hyponatremia Hypokalemia Hypomagnesemia Metabolic encephalopathy / expressive aphasia Hypothyroidism Hyperlipidemia recent meningitis vs encephalitis After review of outside records and further discussion with family, it was noted the patient was recently treated for possible bacterial meningitis vs encephalitis, with negative culture results and concern for possibility of auto- immune etiology. Her symptoms during this episode were similar to prior presentation. EMR review also noted MRI nonspecific changes and cVEEG with slow waves but no epileptiform waves noted. Patient may be having focal seizure in that abnormal parietal region leading to her expressive aphasia. She was loaded with keppra 1gm, and ordered for 500mg BID. Our EEG machine is currently broken, neurologist out of town, discussed with ED and transfer center to have patient transferred back to [facility] for EEG, neuro, and continuity of care. At time of my exam, she did have improvement of her aphasia and confusion. no focal neuro findings Physical Exam: GEN: Alert, orientedx2-3 ([place] [address], or will say her birthday/month plus 2023, NAD HEENT: Normal conjunctiva, sclera anicteric CV: Regular rate and rhythm, no edema Pulm: Nonlabored respirations on room air ABD: Soft, nontender, nondistended Neuro: Normal speech, normal affect, no focal neuro deficits; Vital Signs/Physical Exam: Temp Pulse Resp BP Pulse Ox 98.2 F 69 15 106/62 100 12/27/22 10:00 12/27/22 10:00 12/27/22 10:00 12/27/22 10:00 12/27/22 10:00 Laboratory Data at Discharge: WBC 5.00 thou/uL (4.3-10.9) 12/27/22 05:10 Hgb 10.7 g/dL (12.0-15.0) L 12/27/22 05:10 Hct 30.4 % (36.0-45.0) L 12/27/22 05:10 Plt Count 295 thou/uL (152-406) 12/27/22 05:10 PT 12.7 SECONDS (9.5-12.5) H 12/26/22 22:04 INR 1.15 12/26/22 22:04 Sodium 130 mEq/L (136-145) L 12/27/22 05:10 Potassium 3.4 mEq/L (3.5-5.1) L 12/27/22 05:10 BUN 6 mg/dL (7-18) L 12/27/22 05:10 Creatinine 0.51 mg/dL (0.55-1.02) L 12/27/22 05:10 Glucose 98 mg/dL (74-106) 12/27/22 05:10 Phosphorus 3.0 mg/dL (2.5-4.9) 12/27/22 05:10 Magnesium 2.3 mg/dL (1.6-2.4) 12/27/22 05:10 Total Bilirubin 0.7 mg/dL (0.2-1.0) 12/27/22 05:10 AST 29 U/L (15-37) 12/27/22 05:10 ALT 67 U/L (13-56) H 12/27/22 05:10 Alkaline Phosphatase 118 U/L (45-117) H 12/27/22 05:10 Physician Discharge Instructions: Time spent managing pt's care (in minutes): 45
[2022-12-27 13:42] LABS: Potassium 3.7 mEq/L (3.5-5.1)
--- NOTE | 2022-12-27 14:57 | CON ---
Date of Consultation: 12/27/2022 Reason For Consultation: Hyponatremia, electrolyte imbalance. History Of Present Illness: This is a pleasant 62-year-old female with significant past medical hist ory of hypothyroidism, osteoporosis, the patient came to the hospital back in last week, found to hav e hyponatremia and altered mental status, transferred to [facility]. At that time, the patient was madeleine ated for atypical bacterial meningitis and discharged. During the hospitalization, the patient found to have hyponatremia, treated as depletional. The patient was discharged on doxycycline. During th e hospitalization, sodium was down to 124, upon discharge it was 130. The patient denied taking any nonsteroidal, no recent change in her medication. No SSR. The patient was started on citalopram aft er the hospitalization. The patient came to the hospital with altered mental status, found to have h yponatremia down to 125. For that reason, we have been consulted. The patient was started on hydrat ion, currently sodium up to 130. Has a high urine sodium. Past Medical History: Includes; 1.Hypothyroidism. 2.Atypical bacterial meningitis. 3.Osteoporosis. Allergies: TO CEFUROXIME AND SULFA. Past Surgical History: Negative. Family History: Positive for hypertension. Social History: Denied smoking, denied drinking, denied drug abuse. Lives with family. Review of Systems: Head and Neck: No red eye. No ear pain. GI: Has nausea. No vomiting. : No polyuria. No dysuria. No hematuria. 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 Respiratory: No shortness of breath. Cardiovascular: No leg swelling. No orthopnea. Endocrine: No polydipsia. Skin: No rash. Neuro: Has altered mental status. Musculoskeletal: Generalized fatigue. Physical Examination: Vital Signs: When I saw the patient; blood pressure 102/54, pulse of 63, afebrile. Chest: Clear to auscultation. Heart: S1, S2. Regular. Abdomen: Soft, nontender. Extremity: No edema. Neuro: Currently alert. No focality. No tremor. Laboratory Data: Upon admission; sodium 125 at 0730 yesterday and today in the morning after around 10 hours currently sodium 130. Potassium 3.4, bicarb 27, creatinine 0.5, calcium 8.2, phosphorus 3, magnesium 2.3, albumin 3.4, corrected calcium is 8.5. 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 I am going to go ahead and start the patient on salt tab let. We will send for full workup and I am going to go ahead and discontinue IV fluid and we will fo llow up the patient. 2.Hypertension, controlled, optimal. Continue to monitor. 3.Hypomagnesemia. We will supplement. 4.Hypokalemia. We will supplement. 5.Altered mental status. Doubt to be secondary to hyponatremia. Currently completely corrected and the level was not that low. We will follow up with primary. 6.Bacterial meningitis. Continue current treatment. We will follow up with primary. 7.Hypothyroidism. Continue supplement. We will follow up. Thank you, Dr. Bradshaw for allowing us to participate in the care of your patient. Time spent examining the patient [id number], reviewing old record, discussing the case with the pat ient, discussing the case with by bedside, discussing the case with hospitalist and ER nursing more than 75 minutes. JANET Voice ID: [id number] Report ID: [id number]
[2022-12-27 15:13] VITALS: O2SAT 100
[2022-12-27] MEDS ORDERED: levETIRAcetam 1,000 MG in NA CHLORIDE 0.9% 100 ML IV ONE (15:42)
[2022-12-27] MEDS ORDERED: SODIUM CHLORIDE 1 GM TAB PO SCH (17:00)
--- NOTE | 2022-12-27 17:34 | EKG ---
Test Date: 2022-12-26 Test Time: 19:16:16 Director Payer: ADRIANO MEASUREMENT RESULTS: Intervals: Rate: 72 NV: 142 QRSD: 72 QT: 424 QTc: 464 [place]: P: 54 NV: 142 QRS: 66 T: 59 INTERPRETIVE STATEMENTS: Normal sinus rhythm Normal ECG Compared to ECG 12/15/2022 00:43:02 No significant changes Electronically Signed On 12-27-22 17:31:33 CDT by Martin Colunga
--- NOTE | 2022-12-27 18:22 | P.HP ---
Date of Service: 12/26/22 Certification for Inpatient Patient admitted to: Inpatient With expected LOS: >2 Midnights Patient will require the following post-hospital care: None Practitioner: I am a practitioner with admitting privileges, knowledge of patient current condition, hospital course, and medical plan of care. Services: Services provided to patient in accordance with Admission requirements found in Title 42 Section 412.3 of the Code of Federal Regulations Patient History Date of Service: 12/26/22 Reason for admission: Hyponatremia, hypokalemia, AMS History of Present Illness: 62-year-old female with history of asthma, hypothyroidism, hyperlipidemia presents emergency department chief complaint of altered mental status, aphasia. She was recently seen at our hospital on 12/15/2022 and given TNK for suspected CVA subsequently transferred to [place] where she stayed at [facility] for approximately 1 week and was discharged on 12/22/2022. During her stay she had an extensive work-up including MRI, EEG, echocardiogram, lumbar puncture. She was told that she likely did not have a CVA and her confusion was deemed secondary to her hyponatremia, her initial sodium level was 126 at our facility, 124 at their facility. At discharge on 12/14/2022 her sodium was 130, today it is 125. Her reports that she has been mildly confused since the initial incident but today around 1500 she was trying to ask for the TV remote and could not seem to get the words out also her confusion seem to be mildly worse for that reason they came to the emergency department. She was evaluated here again in the emergency department her labs were significant for sodium 136 potassium 3.[address] head without contrast as well as CT head neck angiogram were negative for signs of CVA or large vessel occlusion. She is slightly confused still, ED provider wishes to admit for metabolic encephalopathy, hyponatremia, hypokalemia. Allergies cefuroxime axetil [From Ceftin] Allergy (Intermediate, Verified 01/17/12 00:06) Hives Sulfa (Sulfonamide Antibiotics) [Sulfa(Sulfonamide Antibiotics)] Allergy (Intermediate, Verified 01/17/12 00:06) Nausea/Vomiting - Past Medical/Surgical History -: Hypothyroidism -: Hyponatremia -: Hyperlipidemia -: Asthma Past Surgical History: Unable to obtain Psychosocial/ Personal History: Patient lives at home with her - Family History Family History: Reviewed- Non-Contributory - Social History Smoking Status: Never smoker Alcohol use: No CD- Drugs: No Caffeine use: Yes Place of Residence: Home Review of Systems 10-point ROS is otherwise unremarkable Neurological: Change in Speech, Confusion, As per HPI Physical Examination - Vital Signs Temperature: 97.1 F Blood Pressure: 128/78 Pulse: 77 Respirations: 14 - Physical Exam General: Alert, In no apparent distress, Oriented x3, Oriented x2 HEENT: Atraumatic, PERRLA, Mucous membr. moist/pink, EOMI, Sclerae nonicteric Neck: Supple, 2+ carotid pulse no bruit, No LAD, Without JVD or thyroid abnormality Respiratory: Clear to auscultation bilaterally, Normal air movement Cardiovascular: Regular rate/rhythm, Normal S1 S2 Capillary refill: <2 Seconds Gastrointestinal: Normal bowel sounds, No tenderness Musculoskeletal: No tenderness Integumentary: No rashes Neurological: Normal gait, Normal speech, Normal strength at 5/5 x4 extr, Normal tone, Normal affect, Other (NIH 1LOC) Lymphatics: No axilla or inguinal lymphadenopathy External genitalia: No edema Assessment and Plan - Plan Assessment: Hyponatremia, hypokalemia, hypomagnesemia Metabolic encephalopathy Aphasia Hypothyroidism Hyperlipidemia Plan: Hyponatremia, hypokalemia, hypomagnesemia Electrolytes replaced in ED, additional studies ordered for sodium. Patient not on any diuretics, reports good oral intake until today. No clear etiology of hyponatremia. We will consult nephrology given additional recent episode of hyponatremia and also may be contributing to her metabolic encephalopathy. Vertigo is in place further electrolytes. Metabolic encephalopathy Likely related to metabolic derangements, will also obtain UA. Had recent e xtensive work-up at [facility]. Aphasia CT head negative for acute findings, MRI without contrast ordered as patient has had new onset of symptoms concerning for possible CVA which developed at 1500 today including aphasia. This has resolved. Patient still confused. Hypothyroidism Hyperlipidemia Continue home medication. DVT PPX: Lovenox Code status: Full Discharge Plan: Home Plan to discharge in: 48 Hours - Advance Directives Does patient have a Living Will: No Does patient have a Durable POA for Healthcare: No - Code Status/Comfort Care Code Status Assessed: Yes (Full code) Critical Care: No Time Spent Managing Pts Care (In Minutes): 55
[2022-12-27] MEDS ORDERED: ATORVASTATIN 40 MG TAB PO SCH (21:00)
[2022-12-27] MEDS ORDERED: levETIRAcetam 500 MG TAB PO SCH (21:00)
== END 2022-12-27 22:47 | disposition short-term general hospital (02) | DRG 640 ==
LOC: ER 17:39 → ERHOLD 21:20
PROVIDERS: ADMIT Hospitalist; ATTEND Hospitalist
DX: E87.1 Hypo-osmolality and hyponatremia (principal); G00.9 Bacterial meningitis, unspecified; G93.41 Metabolic encephalopathy; R47.01 Aphasia; E83.42 Hypomagnesemia; E87.6 Hypokalemia; E03.9 Hypothyroidism, unspecified; E78.5 Hyperlipidemia, unspecified; J45.909 Unspecified asthma, uncomplicated; M81.0 Age-related osteoporosis without current pathological fracture; Z88.2 Allergy status to sulfonamides; Z88.8 Allergy status to other drugs, medicaments and biological substances
CPT/HCPCS: 36415; 70450; 70496; 70498; 71045; 80048; 80053; 80076; 81001; 82533; 82565; 83735; 83880; 83930; 83935; 84100; 84300; 84439; 84443; 84484; 85025; 85610; 86140; 93005; 96365; 96366; 96375; 99285; J1650; J1953; J3475; J3480; J7030; Q9967

== ENCOUNTER 2023-01-03 11:29 | Inpatient (IN) | payer BC ==
--- OUTSIDE RECORDS SUMMARY | 2023-01-03 11:36 | XMS REPORT | Continuity of Care Document ---
:1960 Author Organization [facility] t Address [address] [facility] [address] [place] [address] Care Team Providers Name Role Phone BURT FISHER Primary Care Physician Unavailable KAMERON ENCISO Attending Clinician Unavailable ILDA PICHARDO I Attending Clinician Unavailable JORDYN GUTIERREZ Attending Clinician Unavailable AALIYAH SCHWAB Attending Clinician Unavailable AALIYAH SCHWAB Attending Clinician Unavailable JESE OCONNOR Attending Clinician Unavailable SHALONDA VEGA Attending Clinician Unavailable JULIA DE LA ROSA Attending Clinician Unavailable Jose M Kelly MD Attending Clinician KAMERON ENCISO Admitting Clinician Unavailable JORDYN GUTIERREZ Admitting Clinician Unavailable Payers Payer Name Policy Type Policy Number Effective Date Expiration Date S yassine [facility] OS [id number] 2021 00:00:00 POS/PPO/EPO Problems This patient has no known problems. Allergies, Adverse Reactions, Alerts Allergy Allergy Status Severity Reaction(s) Onset Inactive Treating Comm ents Source Name Type Date Date Clinician SULFA Allergy Active Low Nausea [facility] ([facility]IBIOT 00 Center ICS) PENICILL DRUG Active ITCHING [facility] IN INGREDI 6-24 ity of 00:00: [address] Branch SULFA Drug Active N/V [facility] (SULFONA Class 6-24 ity of [place] 00:00: [place] ANTIBIOT 00 Medical ICS) Branch Medications This patient has no known medications. Vital Signs Vital Name Observation Time Observation Value Comments Source HEIGHT 2022-12-27 15:45:00 147.3 cm WEIGHT 2022-12-27 15:45:00 58.06 kg HEIGHT 2022-12-27 15:45:00 147.3 cm WEIGHT 2022-12-27 15:45:00 58.06 kg HEIGHT 2022-12-15 04:00:00 147.3 cm WEIGHT 2022-12-15 04:00:00 58.2 kg HEIGHT 2022-12-15 04:00:00 147.3 cm WEIGHT 2022-12-15 04:00:00 58.2 kg Procedures This patient has no known procedures. Encounters Start End Encounter Admission Attending Care Care Encounter Source Date/Time Date/Time Type Type Clinicians Facility Department ID 2022-12-28 Inpatient UR CIVUNIG[facility]TA [facility] SLE [id number] [facility] 07:29:45 , KAMERON 2022-12-20 Inpatient ER SPENCER, [facility] SLE [id number] [facility] 08:13:09 [facility] 2022-12-17 Inpatient ER [facility] SLE [id number] [facility] 07:02:47 A JORDYN RINALDI 2022-12-15 [facility] [id number] [facility] 17:19:22 A JORDYN RINALDI 2022-12-[id number] 14:42:20 A JORDYN RINALDI 2022-12-15 [facility] [id number] [facility] 14:42:13 A JORDYN RINALDI 2022-12-15 [facility] [id number] [facility] 14:42:05 A JORDYN RINALDI 2022-12-27 2022-12-28 Inpatient UR ANASTASIA, SLE Neurology [id number] SLE[facility] 15:44:00 16:00:00 AHMED 2022-12-15 2022-12-22 Inpatient ER RJ, [facility] Neuro ICU [id number] [facility] 04:07:00 11:37:00 MRINALINI 2018-12-27 2018-12-27 [facility] [id number] 12:30:00 23:59:00 Encounter Jose M Ely [id number] [place] [id number] [place] [id number] Results Test Description Test Time Test Comments Results Result Comments Source BLOOD CULTURE 2023-01-01 19:00:39 Test Item Value Reference Range Interpretation Comme nts CULTURE (BEAKER) (test code = 1095) No growth in 5 days BLOOD [id number] 19:00:39 Test Item Value Reference Range Interpretation Comments CULTURE (BEAKER) (test No growth in 5 days code = 1095) The specimen volume collected for this blood culture was below the optimum (10 mL per bottle or 20 mL total). Use of lower volumes may adversely affect recovery and/or detection times of some organisms.BARTONELLA HENSELAE ABS, REFLEX TO [id number] 08:13:12 Test Item Value Reference Range Interpretation Comments SCAN RESULT (test code = See scanned report. [id number]) MR BRAIN WITH & WITHOUT IV [id number] 09:20:59 [facility]O BLEVINSPriyanka ZHAO : 1960 Sex: FMRI Brain with and without contrastCLINICAL HISTORY: Unlisted Reason for ExamSeizuresTechnique: Multiplanar, multisequence MRI images of the brain obtainedwith and without IV contrast.Comparisons: December 20, 2022, 12/15/2022Findings:Right occipital cortical and minimal subcortical T2 FLAIR hyperintensity(images 13 through 18 of series 701) is reduced but not completelyresolved compared to immediate prior exami [facility] [place]. Of note, overlyingscalp soft tissue swelling seen on December 15, 2022 exam has resolved. Noassociated pathologic enhancement. There is no abnormal intracranial enhancement or mass. Nonspecificsupratentorial and infratentorial T2 FLAIR hyperintensitiesstatistically likely representing chronic micro angiopathic ischemicchanges are again noted. There is no evidence of acute infarct orhemorrhage. There are no extra-axial fluid collections. Thecraniocervical junction is preserved. The major intracranial flow-voidsappear patent. Bilateral mastoid effusions, greater on the left.IMPRESSION:Interval reduction in right occipital cortical/subcortical subtle S0INSVZ hyperintensity likely representing resolving edema, nonspecificbut possibly resolving parenchymal contusion.Otherwise, examination is stablein appearance.Electronically Signed By: Mansoor Perrin12/28/2022 09:23 CDTWorkstation Name: [id number] METABOLIC [id number] 05:34:40 Test Item Value Reference Range Interpretation Comments TOTAL PROTEIN 6.5 gm/dL 6.0-8.3 (BEAKER) (test code = 770) ALBUMIN (BEAKER) 3.9 g/dL 3.5-5.0 (test code = 1145) ALKALINE 108 U/L 40-150 PHOSPHATASE (BEAKER) (test code = 346) BILIRUBIN TOTAL 0.4 mg/dL 0.2-1.2 (BEAKER) (test code = 377) SODIUM (BEAKER) 129 meq/L 136-145 L (test code = 381) POTASSIUM (BEAKER) 3.7 meq/L 3.5-5.1 (test code = 379) CHLORIDE (BEAKER) 98 meq/L 98-107 (test code = 382) CO2 (BEAKER) (test 24 meq/L 22-29 code = 355) BLOOD UREA 6 mg/dL 7-21 L NITROGEN (BEAKER) (test code = 354) CREATININE 0.62 mg/dL 0.57-1.25 (BEAKER) (test code = 358) GLUCOSE RANDOM 101 mg/dL 70-105 (BEAKER) (test code = 652) CALCIUM (BEAKER) 8.7 mg/dL 8.4-10.2 (test code = 697) AST (SGOT) 23 U/L 5-34 (BEAKER) (test code = 353) ALT (SGPT) 46 U/L 6-55 (BEAKER) (test code = 347) EGFR (BEAKER) 100 Interpretatio n of eGFR (test code = [...] not appl icable for dialysis patien ts Cutting Supervisor ID - MMCBC W/PLT COUNT & AUTO [id number] 05:12:45 Test Item Value Reference Range Interpretation Comments WHITE BLOOD CELL COUNT (BEAKER) 5.9 K/ L 3.5-10.5 (test code = 775) RED BLOOD CELL COUNT (BEAKER) 3.75 M/ L 3.93-5.22 L (test code = 761) HEMOGLOBIN (BEAKER) (test code = 11.1 GM/DL 11.2-15.7 L 410) HEMATOCRIT (BEAKER) (test code = 32.1 % 34.1-44.9 L 411) MEAN CORPUSCULAR VOLUME (BEAKER) 86 fL 79-95 (test code = 753) MEAN CORPUSCULAR HEMOGLOBIN 29.6 pg 25.6-32.2 (BEAKER) (test code = 751) MEAN CORPUSCULAR HEMOGLOBIN CONC 34.6 GM/DL 32.2-35.5 (BEAKER) (test code = 752) RED CELL DISTRIBUTION WIDTH 13.2 % 11.7-14.4 (BEAKER) (test code = 412) PLATELET COUNT (BEAKER) (test 285 K/CU MM 150-450 code = 756) MEAN PLATELET VOLUME (BEAKER) 8.7 fL 9.4-12.3 L (test code = 754) NUCLEATED RED BLOOD CELLS 0 /100 WBC 0-0 (BEAKER) (test code = 413) NEUTROPHILS RELATIVE PERCENT 52 % (BEAKER) (test code = 429) LYMPHOCYTES RELATIVE PERCENT 39 % (BEAKER) (test code = 430) MONOCYTES RELATIVE PERCENT 7 % (BEAKER) (test code = 431) EOSINOPHILS RELATIVE PERCENT 2 % (BEAKER) (test code = 432) BASOPHILS RELATIVE PERCENT 1 % (BEAKER) (test code = 437) NEUTROPHILS ABSOLUTE COUNT 3.06 K/ L 1.56-6.13 (BEAKER) (test code = 670) LYMPHOCYTES ABSOLUTE COUNT 2.27 K/ L 1.18-3.74 (BEAKER) (test code = 414) MONOCYTES ABSOLUTE COUNT (BEAKER) 0.43 K/ L 0.24-0.36 H (test code = 415) EOSINOPHILS ABSOLUTE COUNT 0.09 K/ L 0.04-0.36 (BEAKER) (test code = 416) BASOPHILS ABSOLUTE COUNT (BEAKER) 0.03 K/ L 0.01-0.08 (test code = 417) IMMATURE GRANULOCYTES-RELATIVE 0.20 % 0.00-1.00 PERCENT (BEAKER) (test code = 2801) URINALYSIS W/ REFLEX URINE [id number] 18:23:02 Test Item Value Reference Range Interpretation Comments COLOR (BEAKER) (test code = 470) Light Yellow CLARITY (BEAKER) (test code = Clear 469) SPECIFIC GRAVITY UA (BEAKER) 1.010 1.001-1.035 (test code = 468) PH UA (BEAKER) (test code = 467) 7.5 5.0-8.0 PROTEIN UA (BEAKER) (test code = Negative Negative 464) GLUCOSE UA (BEAKER) (test code = Negative Negative 365) KETONES UA (BEAKER) (test code = Negative Negative 371) BILIRUBIN UA (BEAKER) (test code Negative Negative = 462) BLOOD UA (BEAKER) (test code = Negative Negative 461) NITRITE UA (BEAKER) (test code = Negative Negative 465) LEUKOCYTE ESTERASE UA (BEAKER) Trace Negative A (test code = 466) UROBILINOGEN UA (BEAKER) (test 0.2 0.2-1.0 code = 463) RBC UA (BEAKER) (test code = 1 /HPF 519) WBC UA (BEAKER) (test code = 3 /HPF 520) BACTERIA (BEAKER) (test code = Rare 517) SQUAMOUS EPITHELIAL (BEAKER) < /HPF (test code = 516) SOURCE(BEAKER) (test code = 2795) Cutting Supervisor ID - [auto]Cutting Supervisor ID - techCOMPREHENSIVE METABOLIC [id number] 18:22:18 Test Item Value Reference Range Interpretation Comments TOTAL PROTEIN 6.6 gm/dL 6.0-8.3 (BEAKER) (test code = 770) ALBUMIN (BEAKER) 4.0 g/dL 3.5-5.0 (test code = 1145) ALKALINE 116 U/L 40-150 PHOSPHATASE (BEAKER) (test code = 346) BILIRUBIN TOTAL 0.4 mg/dL 0.2-1.2 (BEAKER) (test code = 377) SODIUM (BEAKER) 131 meq/L 136-145 L (test code = 381) POTASSIUM (BEAKER) 4.0 meq/L 3.5-5.1 (test code = 379) CHLORIDE (BEAKER) 98 meq/L 98-107 (test code = 382) CO2 (BEAKER) (test 26 meq/L 22-29 code = 355) BLOOD UREA 7 mg/dL 7-21 NITROGEN (BEAKER) (test code = 354) CREATININE 0.61 mg/dL 0.57-1.25 (BEAKER) (test code = 358) GLUCOSE RANDOM 116 mg/dL 70-105 H (BEAKER) (test code = 652) CALCIUM (BEAKER) 8.6 mg/dL 8.4-10.2 (test code = 697) AST (SGOT) 30 U/L 5-34 (BEAKER) (test code = 353) ALT (SGPT) 55 U/L 6-55 (BEAKER) (test code = 347) EGFR (BEAKER) 100 Interpretatio n of eGFR (test code = [...] not appl icable for dialysis patien ts Cutting Supervisor ID - [id number] 18:22:18 Test Item Value Reference Range Interpretation Comments MAGNESIUM (BEAKER) (test code = 1.7 mg/dL 1.6-2.6 627) Cutting Supervisor ID - [id number] 18:22:18 Test Item Value Reference Range Interpretation Comments PHOSPHORUS (BEAKER) (test code = 2.4 mg/dL 2.3-4.7 604) Cutting Supervisor ID - ADMINPROTHROMBIN [id number] 18:12:00 Test Item Value Reference Range Interpretation Comments PROTIME (BEAKER) 14.1 seconds 11.9-14.2 (test code = 759) INR (BEAKER) (test 1.11 See_Comment [Automat ed message] code = 370) The system MedCPU generated this result transmitted ref erence range: <=5.90. The reference range was not used to int erpret this result as normal/abnormal . RECOMMENDED COUMADIN/WARFARIN INR THERAPY RANGESSTANDARD DOSE: 2.0 - 3.0 Includes: PROPHYLAXIS for venous thrombosis, systemic embolization; TREATMENT for venous thrombosis and/or pulmonary embolus.HIGH RISK: Target INR is 2.5-3.5 for patients with mechanical heart valves.LACTIC ACID, [id number] 18:07:57 Test Item Value Reference Range Interpretation Comments LACTATE BLOOD VENOUS (2) (BEAKER) 1.35 mmol/L 0.50-2.00 (test code = 2872) Cutting Supervisor ID - ADMINCBC W/PLT COUNT & AUTO [id number] 18:02:15 Test Item Value Reference Range Interpretation Comments WHITE BLOOD CELL COUNT (BEAKER) 5.6 K/ L 3.5-10.5 (test code = 775) RED BLOOD CELL COUNT (BEAKER) 3.61 M/ L 3.93-5.22 L (test code = 761) HEMOGLOBIN (BEAKER) (test code = 10.7 GM/DL 11.2-15.7 L 410) HEMATOCRIT (BEAKER) (test code = 30.7 % 34.1-44.9 L 411) MEAN CORPUSCULAR VOLUME (BEAKER) 85 fL 79-95 (test code = 753) MEAN CORPUSCULAR HEMOGLOBIN 29.6 pg 25.6-32.2 (BEAKER) (test code = 751) MEAN CORPUSCULAR HEMOGLOBIN CONC 34.9 GM/DL 32.2-35.5 (BEAKER) (test code = 752) RED CELL DISTRIBUTION WIDTH 13.2 % 11.7-14.4 (BEAKER) (test code = 412) PLATELET COUNT (BEAKER) (test 291 K/CU MM 150-450 code = 756) MEAN PLATELET VOLUME (BEAKER) 9.0 fL 9.4-12.3 L (test code = 754) NUCLEATED RED BLOOD CELLS 0 /100 WBC 0-0 (BEAKER) (test code = 413) NEUTROPHILS RELATIVE PERCENT 59 % (BEAKER) (test code = 429) LYMPHOCYTES RELATIVE PERCENT 33 % (BEAKER) (test code = 430) MONOCYTES RELATIVE PERCENT 7 % (BEAKER) (test code = 431) EOSINOPHILS RELATIVE PERCENT 1 % (BEAKER) (test code = 432) BASOPHILS RELATIVE PERCENT 0 % (BEAKER) (test code = 437) NEUTROPHILS ABSOLUTE COUNT 3.28 K/ L 1.56-6.13 (BEAKER) (test code = 670) LYMPHOCYTES ABSOLUTE COUNT 1.82 K/ L 1.18-3.74 (BEAKER) (test code = 414) MONOCYTES ABSOLUTE COUNT (BEAKER) 0.41 K/ L 0.24-0.36 H (test code = 415) EOSINOPHILS ABSOLUTE COUNT 0.03 K/ L 0.04-0.36 L (BEAKER) (test code = 416) BASOPHILS ABSOLUTE COUNT (BEAKER) 0.02 K/ L 0.01-0.08 (test code = 417) IMMATURE GRANULOCYTES-RELATIVE 0.20 % 0.00-1.00 PERCENT (BEAKER) (test code = 2801) CBC W/PLT COUNT & AUTO [id number] 06:30:49 Test Item Value Reference Range Interpretation Comments WHITE BLOOD CELL COUNT (BEAKER) 7.5 K/ L 3.5-10.5 (test code = 775) RED BLOOD CELL COUNT (BEAKER) 3.57 M/ L 3.93-5.22 L (test code = 761) HEMOGLOBIN (BEAKER) (test code = 10.6 GM/DL 11.2-15.7 L 410) HEMATOCRIT (BEAKER) (test code = 31.0 % 34.1-44.9 L 411) MEAN CORPUSCULAR VOLUME (BEAKER) 87 fL 79-95 (test code = 753) MEAN CORPUSCULAR HEMOGLOBIN 29.7 pg 25.6-32.2 (BEAKER) (test code = 751) MEAN CORPUSCULAR HEMOGLOBIN CONC 34.2 GM/DL 32.2-35.5 (BEAKER) (test code = 752) RED CELL DISTRIBUTION WIDTH 13.1 % 11.7-14.4 (BEAKER) (test code = 412) PLATELET COUNT (BEAKER) (test 238 K/CU MM 150-450 code = 756) MEAN PLATELET VOLUME (BEAKER) 9.3 fL 9.4-12.3 L (test code = 754) NUCLEATED RED BLOOD CELLS 0 /100 WBC 0-0 (BEAKER) (test code = 413) NEUTROPHILS RELATIVE PERCENT 68 % (BEAKER) (test code = 429) LYMPHOCYTES RELATIVE PERCENT 24 % (BEAKER) (test code = 430) MONOCYTES RELATIVE PERCENT 6 % (BEAKER) (test code = 431) EOSINOPHILS RELATIVE PERCENT 1 % (BEAKER) (test code = 432) BASOPHILS RELATIVE PERCENT 0 % (BEAKER) (test code = 437) NEUTROPHILS ABSOLUTE COUNT 5.09 K/ L 1.56-6.13 (BEAKER) (test code = 670) LYMPHOCYTES ABSOLUTE COUNT 1.76 K/ L 1.18-3.74 (BEAKER) (test code = 414) MONOCYTES ABSOLUTE COUNT (BEAKER) 0.48 K/ L 0.24-0.36 H (test code = 415) EOSINOPHILS ABSOLUTE COUNT 0.06 K/ L 0.04-0.36 (BEAKER) (test code = 416) BASOPHILS ABSOLUTE COUNT (BEAKER) 0.02 K/ L 0.01-0.08 (test code = 417) IMMATURE GRANULOCYTES-RELATIVE 0.90 % 0.00-1.00 PERCENT (BEAKER) (test code = 2801) [id number] 06:20:54 Test Item Value Reference Range Interpretation Comments MAGNESIUM (BEAKER) (test code = 1.4 mg/dL 1.6-2.6 L 627) Cutting Supervisor ID - [id number] 06:20:54 Test Item Value Reference Range Interpretation Comments PHOSPHORUS (BEAKER) (test code = 3.2 mg/dL 2.3-4.7 604) Cutting Supervisor ID - mmBASIC METABOLIC [id number] 06:20:53 Test Item Value Reference Range Interpretation [...] not appl icable for dialysis patien ts Cutting Supervisor ID - [id number] 06:46:55 Test Item Value Reference Range Interpretation Comments MAGNESIUM (BEAKER) (test code = 1.3 mg/dL 1.6-2.6 L 627) Cutting Supervisor ID - [id number] 06:46:55 Test Item Value Reference Range Interpretation Comments PHOSPHORUS (BEAKER) (test code = 4.6 mg/dL 2.3-4.7 604) Cutting Supervisor ID - ADMINBASIC METABOLIC [id number] 06:46:54 Test Item Value Reference Range Interpretation [...] decreased 60-89 G3a Mildl y to moderately 45- 59 G3b Moderately to s everely 30-44 G4 Severl y decreased 15-29 G5 Kidney failure <15Reported eGF R is based on the CKD-EPI 2020 equation that d oes not use a race coefficientEsti mated GFR is not as accur ate as Creatinine Faby baldo in predicting glom erular filtration rate . Estimated GFR is not appl icable for dialysis patien ts Cutting Supervisor ID - ADMINCBC W/PLT COUNT & AUTO [id number] 06:06:57 Test Item Value Reference Range Interpretation [...] 2801) MR BRAIN WITH & WITHOUT IV [id number] 22:54:48 [facility] TEODORO BLEVINSPriyanka MORALESH : 1960 Sex: FMR BRAIN WITH & WITHOUT IV CONTRASTINDICATION: Meningitis/ENERGY MANAGER infection suspectedTechnique: MRI of thebrain utilizing axial [...] Signed By: Kala Fu12/20/2022 22:56 CDTWorkstation Name: [id number] CULTURE 2022-12-20 21:00:19 Test Item Value Reference Range Interpretation Comments CULTURE (BEAKER) (test No growth in 5 days code = 1095) BLOOD [id number] 21:00:18 Test Item Value Reference Range Interpretation [...] not appl icable for dialysis patien ts Cutting Supervisor ID - [id number] 06:34:08 Test Item Value Reference Range Interpretation Comments MAGNESIUM (BEAKER) (test code = 1.3 mg/dL 1.6-2.6 L 627) Cutting Supervisor ID - [id number] 06:34:08 Test Item Value Reference Range Interpretation Comments PHOSPHORUS (BEAKER) (test code = 4.0 mg/dL 2.3-4.7 604) Cutting Supervisor ID - ADMINCBC W/PLT COUNT & AUTO [id number] 06:07:55 Test Item Value Reference Range Interpretation [...] 0.00-1.00 PERCENT (BEAKER) (test code = 2801) [id number] 19:03:03 Test Item Value Reference Range Interpretation Comments POTASSIUM (BEAKER) (test code = 3.5 meq/L 3.5-5.1 379) Cutting Supervisor ID - DBCSF CULTURE + GRAM [id number] 12:08:59 Test Item Value Reference Range Interpretation Comments CULTURE (BEAKER) (test code No growth = 1095) GRAM STAIN RESULT (BEAKER) 1+ WBCs (test code = 1123) GRAM STAIN RESULT (BEAKER) No organisms seen (test code = 63142) BASIC METABOLIC [id number] 06:29:11 Test Item Value Reference Range Interpretation [...] not appl icable for dialysis patien ts Cutting Supervisor ID - [id number] 05:41:37 Test Item Value Reference Range Interpretation Comments PHOSPHORUS (BEAKER) (test code = 2.4 mg/dL 2.3-4.7 604) Cutting Supervisor ID - [id number] 05:41:36 Test Item Value Reference Range Interpretation Comments MAGNESIUM (BEAKER) (test code = 1.8 mg/dL 1.6-2.6 627) Cutting Supervisor ID - ADMINCBC W/PLT COUNT & AUTO [id number] 05:12:32 Test Item Value Reference Range Interpretation [...] PERCENT (BEAKER) (test code = 2801) OSMOLALITY, [id number] 22:19:45 Test Item Value Reference Range Interpretation Comments OSMOLALITY, SERUM (BEAKER) (test 260 mOsm/kg 275-295 L code = 615) OSMOLALITY, [id number] 20:51:14 Test Item Value Reference Range Interpretation Comments OSMOLALITY URINE 372 mOsm/kg See_Comment [Automated message] (BEAKER) (test code = The sy stem which 614) generated this result transmitted ref erence range: 50-1,200 mOsm/kg. The reference range was not used to int erpret this result as normal/abnormal . SODIUM, RANDOM [id number] 20:50:36 Test Item Value Reference Range Interpretation Comments SODIUM URINE (BEAKER) (test code = 131 meq/L 243) Reference Range: No NormalsOperator ID - [id number] 14:28:02 Test Item Value Reference Range Interpretation Comments PHOSPHORUS (BEAKER) (test code = 2.2 mg/dL 2.3-4.7 L 604) Cutting Supervisor ID - [id number] 14:28:02 Test Item Value Reference Range Interpretation Comments POTASSIUM (BEAKER) (test code = 3.0 meq/L 3.5-5.1 L 379) Cutting Supervisor ID - [id number] 14:28:01 Test Item Value Reference Range Interpretation Comments MAGNESIUM (BEAKER) (test code = 2.3 mg/dL 1.6-2.6 627) Cutting Supervisor ID - ADMINVARICELLA ZOSTER ANTIBODY, [id number] 14:01:51 Test Item Value Reference Range Interpretation Comments VARICELLA ZOSTER IGG (AL) (BEAKER) 4.2 (test code = 3197) VARICELLA ZOSTER RESULT INTERPRETATIONS: <=0.8 Al Nonreactive: Presumed non- immune to VZV 0.9-1.0Al Equivocal >=1.1 Al Reactive: Presumed immune to VZV [id number] 07:39:09 Test Item Value Reference Range Interpretation Comments PHOSPHORUS (BEAKER) (test code = 1.1 mg/dL 2.3-4.7 LL 604) Cutting Supervisor ID - ADMINBASIC METABOLIC [id number] 07:35:44 Test Item Value Reference Range Interpretation [...] not appl icable for dialysis patien ts Cutting Supervisor ID - [id number] 07:19:04 Test Item Value Reference Range Interpretation Comments MAGNESIUM (BEAKER) (test code = 1.7 mg/dL 1.6-2.6 627) Cutting Supervisor ID - ADMINCBC W/PLT COUNT & AUTO [id number] 06:31:09 Test Item Value Reference Range Interpretation [...] 0.00-1.00 PERCENT (BEAKER) (test code = 2801) [id number] 05:20:33 Test Item Value Reference Range Interpretation Comments FERRITIN (BEAKER) (test code = 98.56 ng/mL 5.00-275.00 361) Cutting Supervisor ID - BENIGNO NI, TIBC, % SAT. (WITHOUT FERRITIN)2022-12-18 04:59:37 Test Item Value Reference Range Interpretation Comments IRON (BEAKER) (test code = 547) 45.0 ug/dL 40.0-160.0 TOTAL IRON BINDING CAPACITY 198 ug/dL 250-450 L (BEAKER) (test code = 769) IRON % SATURATION (2) (BEAKER) 23 % 20-55 (test code = 2590) Cutting Supervisor ID - BENIGNO [id number] 16:42:38 Test Item Value Reference Range Interpretation Comments POTASSIUM (BEAKER) 3.0 meq/L 3.5-5.1 L Specimen slightly (test code = 379) hemolyzed Cutting Supervisor ID - MMCSF CELL COUNT [id number] 14:36:58 Test Item Value Reference Range Interpretation [...] Tube code = 2678) CSF CELL COUNT [id number] 14:36:21 Test Item Value Reference Range Interpretation [...] (test EDTA Tube code = 2678) GLUCOSE, [id number] 14:05:04 Test Item Value Reference Range Interpretation Comments GLUCOSE CSF (BEAKER) (test code = 70 mg/dL 40-70 406) Cutting Supervisor ID - ADMINPROTEIN, [id number] 14:05:04 Test Item Value Reference Range Interpretation Comments PROTEIN CSF (BEAKER) (test code = 54 mg/dL 15-45 H 378) Cutting Supervisor ID - ADMINMENINGITIS/ENCEPHALITIS [id number] 13:20:47 Test Item Value Reference Range Interpretation Comments ESCHERICHIA COLI K1 (test code = Not detected Not detected [id number]) HAEMOPHILUS INFLUENZAE (test Not detected Not detected code = 8605617) LISTERIA MONOCYTOGENES (test Not detected Not detected code = 7891607) NEISSERIA MENINGITIDIS (test Not detected Not detected code = 2651871) STREPTOCOCCUS AGALACTIAE (test Not detected Not detected code = 5532229) STREPTOCOCCUS PNEUMONIAE (test Not detected Not detected code = 7106413) CYTOMEGALOVIRUS (CMV) (test code Not detected Not detected = 9423402) ENTEROVIRUS (test code = Not detected Not detected 1200747) HUMAN HERPESVIRUS 6 (HHV-6) Not detected Not detected (test code = 8188688) HERPES SIMPLEX VIRUS 1(HSV-1) Not detected Not detected (test code = 3374370) HERPES SIMPLEX VIRUS 2(HSV-2) Not detected Not detected (test code = 0113721) HUMAN PARECHOVIRUS (test code = Not detected Not detected 6239087) VARICELLA-ZOSTER VIRUS (VZV) Not detected Not detected (test code = 9212435) CRYPTOCOCCUS NEOFORMANS/GATTII Not detected Not detected (test code = 9487100) The performance of this test has not [...] required. This sample was tested at the [facility] using the Transactis MeningitisEncephalitis Panel. It is FDA cleared and has been verified and approved by the [facility] for clinical use. This laboratory is CLIA-certified and [employer] ([employer])-accredited to perform high complexity testing.POCT-GLUCOSE METER 2022-12-17 10:41:49 Test Item Value Reference Range Interpretation Comments POC-GLUCOSE METER 138 mg/dL 70-110 H : TESTED A T [facility] [address] (BEAKER) (test code = [place], 1538) [address]: Cutting Supervisor/Techni june ID = [id number] for Sandra Messina BASIC METABOLIC [id number] 04:19:13 Test Item Value Reference Range Interpretation [...] not appl icable for dialysis patien ts Cutting Supervisor ID - MMVANCOMYCIN LEVEL, [id number] 04:16:30 Test Item Value Reference Range Interpretation Comments VANCOMYCIN TROUGH (BEAKER) (test 6.6 ug/mL 10.0-20.0 L code = 522) Cutting Supervisor ID - [id number] 04:14:47 Test Item Value Reference Range Interpretation Comments PHOSPHORUS (BEAKER) (test code = 1.7 mg/dL 2.3-4.7 L 604) Cutting Supervisor ID - [id number] 04:14:46 Test Item Value Reference Range Interpretation Comments MAGNESIUM (BEAKER) (test code = 2.3 mg/dL 1.6-2.6 627) Cutting Supervisor ID - MMCBC W/PLT COUNT & AUTO [id number] 04:04:43 Test Item Value Reference Range Interpretation [...] = 2801) CBC W/PLT COUNT & AUTO [id number] 05:06:00 Test Item Value Reference Range Interpretation [...] PERCENT (BEAKER) (test code = 2801) LIPID [id number] 05:02:07 Test Item Value Reference Range Interpretation [...] Borderline 130-159 High 160-189 Very High >=190 Cutting Supervisor ID - MARCOBASIC METABOLIC [id number] 05:02:06 Test Item Value Reference Range Interpretation [...] not appl icable for dialysis patien ts Cutting Supervisor ID - [id number] 05:02:06 Test Item Value Reference Range Interpretation Comments MAGNESIUM (BEAKER) (test code = 1.8 mg/dL 1.6-2.6 627) Cutting Supervisor ID - [id number] 05:02:06 Test Item Value Reference Range Interpretation Comments PHOSPHORUS (BEAKER) (test code = 2.2 mg/dL 2.3-4.7 L 604) Cutting Supervisor ID - MISSYOXR CHEST 1 VIEW PORTABLE / [id number] 21:24:26 [facility] 1960 Sex: FHistory: fever.Comparison: None.Findings:A single view of the chest is submitted.The cardiomediastinal contours are unremarkable. There is no focal consolidation, pneumothorax, large pleural effusion orevidence of overt pulmonary edema. There is no acute bony abnormality.Surgical clips overlie the right upper quadrant.Electronically Signed By: Vincent Fernandes12/15/2022 21:26 CDTWorkstation Name: [id number] ACID, [id number] 20:10:21 Test Item Value Reference Range Interpretation Comments LACTATE BLOOD VENOUS 1.31 mmol/L 0.50-2.00 Specime n slightly (2) (BEAKER) (test hemolyzed code = 4412) Cutting Supervisor ID - BSURINALYSIS W/ [id number] 20:02:35 Test Item Value Reference Range Interpretation [...] 516) SOURCE(BEAKER) (test code = Urine, Voided 6045) Cutting Supervisor ID - [auto]Cutting Supervisor ID - [id number] 18:50:12 Test Item Value Reference Range Interpretation Comments PROCALCITONIN (BEAKER) (test code = < ng/mL <0.05 3036) SEPSIS RISK (ng/mL)Low: 0.05-0.50Intermediate: 0.51-2.00High: >=2.01 COMPREHENSIVE METABOLIC [id number] 18:26:29 Test Item Value Reference Range Interpretation [...] not appl icable for dialysis patien ts Cutting Supervisor ID - [id number] 18:26:28 Test Item Value Reference Range Interpretation Comments MAGNESIUM (BEAKER) 1.3 mg/dL 1.6-2.6 L Specimen slightly (test code = 627) hemolyzed Cutting Supervisor ID - [id number] 18:26:28 Test Item Value Reference Range Interpretation Comments PHOSPHORUS (BEAKER) 3.0 mg/dL 2.3-4.7 Specimen slightly (test code = 604) hemolyzed Cutting Supervisor ID - BSCBC W/PLT COUNT & AUTO [id number] 18:02:00 Test Item Value Reference Range Interpretation [...] code = 2801) MRA HEAD WITHOUT IV [id number] 17:16:27 [facility] 1960 Sex: FMRA HeadCLINICAL HISTORY: Stroke, follow upTECHNIQUE: MRA of the head utilizing 3-D czyw-sr-fnieyj technique with3-D reconstructions.COMPARISON: NoneFINDINGS:There is no evidence of intracranial aneurysm, critical stenosis, orlarge vessel occlusion. IMPRESSION:No large vessel occlusion.MRA NeckCLINICAL HISTORY: Stroke, follow upTECHNIQUE: MRA of the neck utilizing 2-D and 3-D ouva-en-lokwpjkxxpsetwz with 3-D reconstructions.COMPARISON: NoneFINDINGS:The internal carotid arteries in the neck are patent including theirbifurcations. There is antegrade flow in the vertebral arteries in the neck.IMPRESSION:No e vidence of hemodynamically significant stenosis in the cervicalcarotid or vertebral arteries by NASCET criteria.Electronically Signed By: Naman Chavez12/15/2022 17:18 CDTWorkstation Name: [id number] NECK WITHOUT IV CONTRAST 2022-12-15 17:16:27 [facility] : 1960 Sex: FMRA HeadCLINICAL HISTORY: Stroke, follow upTECHNIQUE: MRA of the head utilizing 3-D rhmr-dd-otbjif technique with3-D reconstructions.COMPARISON: NoneFINDINGS:There is no evidence of intracranial aneurysm, critical stenosis, orlarge vessel occlusion. IMPRESSION:No large vessel occlusion.MRA NeckCLINICAL HISTORY: Stroke, follow upTECHNIQUE: MRA of the neck utilizing 2-D and 3-D adus-fl-vfysrbcoiaxzttj with 3-D reconstructions.COMPARISON: NoneFINDINGS:The internal carotid arteries in the neck are patent including theirbifurcations. There is antegrade flow in the vertebral arteries in the neck.IMPRESSION:No e vidence of hemodynamically significant stenosis in the cervicalcarotid or vertebral arteries by NASCET criteria.Electronically Signed By: Naman Chavez12/15/2022 17:18 CDTWorkstation Name: [id number] BRAIN WITHOUT IV CONTRAST 2022-12-15 17:13:[address] [facility] 1960 Sex: FMRI [...] Signed By: Naman Chavez12/15/2022 17:15 CDTWorkstation Name: [id number] 15:59:52 Test Item Value Reference Range Interpretation Comments RPR SCREEN ([employer]) (test code = Nonreactive Nonreactive 420) POCT-GLUCOSE [id number] 13:48:01 Test Item Value Reference Range Interpretation Comments POC-GLUCOSE METER 165 mg/dL 70-110 H : TESTED A T [facility] 6720 ([employer]) (test code [facility], = 1538) 91983: Cutting Supervisor/Techni june ID = [id number] for Shelley Aquino HEMOGLOBIN [id number] 10:25:52 Test Item Value Reference Range Interpretation Comments HEMOGLOBIN A1C 5.1 % See_Comment [Automated m essage] ELECTROPHORESIS ([employer]) The system which (test code = 3811) generated this result transmitted ref erence range: <=5.6%. The reference range was not used to int erpret this result as normal/abnormal . "The A1c is measured using a NGSP-certified method. HbA1c value equal to or greater than 6.5% as thediagnosis cutoff for diabetes. An HbA1c value of 5.7- 6.4% indicates increased risk for diabetes (prediabetes)."Cutting Supervisor ID - ADM TSH/FREE T4 IF [id number] 06:34:55 Test Item Value Reference Range Interpretation Comments THYROID STIMULATING HORMONE 1.898 uIU/mL 0.350-4.940 (BEAKER) (test code = 772) Cutting Supervisor ID - MMVITAMIN [id number] 06:34:54 Test Item Value Reference Range Interpretation Comments VITAMIN B12 (BEAKER) (test code = 822 pg/mL 213-816 H 774) Cutting Supervisor ID - MMBASIC METABOLIC [id number] 06:12:21 Test Item Value Reference Range Interpretation [...] not appl icable for dialysis patien ts Cutting Supervisor ID - MMCBC W/PLT COUNT & AUTO [id number] 06:05:08 Test Item Value Reference Range Interpretation [...] 0.00-1.00 PERCENT (BEAKER) (test code = 2801) [id number] 05:55:33 Test Item Value Reference Range Interpretation [...] 2.5-3.5 for patients with mechanical heart valves.PROTHROMBIN [id number] 05:54:57 Test Item Value Reference Range Interpretation [...]
[2023-01-03] MEDS ORDERED: TETRACAINE HCL 0.5% 4ML OPTH ONE (12:18)
[2023-01-03] MEDS ORDERED: FLUORESCEIN SODIUM 1 MG/WRAP ONE (12:18)
[2023-01-03 13:01] LABS: Specific Gravity 1.015 (1.005-1.030); Transitional Epithelial <5 /HPF (None Seen); Urine Bacteria None Seen /HPF (<20); Urine Bilirubin NEGATIVE (Negative); Urine Blood Negative (Negative); Urine Clarity Turbid (Clear); Urine Color Light-Yellow (Yellow); Urine Glucose NEGATIVE (Negative); Urine Protein TRACE (Negative); Urine Urobilinogen Normal (Normal)
[2023-01-03] MEDS ORDERED: ERYTHROMYCIN 1 APPL/1 GM TUBE ONE (13:45)
[2023-01-03 14:45] LABS: Hematocrit 39.7 % (36.0-45.0); Lymphocytes % 20.9 % (15.3-44.8); MCV 87.9 fL (80-100); Platelets 346 thou/uL (152-406); RBC Red Blood Cell Count 4.52 M/uL (3.86-4.86)
[2023-01-03 16:07] LABS: Albumin 3.8 g/dL (3.4-5.0); Bilirubin Total 0.3 mg/dL (0.2-1.0); Potassium 3.9 mEq/L (3.5-5.1); Protein, Total 7.9 g/dL (6.4-8.2)
--- NOTE | 2023-01-03 16:15 | ER ---
Nurse's Notes [facility] Name: Gladys Blevins Age: 62 yrs Sex: Female : 1960 Arrival Date: 01/03/2023 Time: 11:29 Bed 18 Private MD: Diagnosis: Hypo-osmolality and hyponatremia;Neurological changes x 1 month Presentation: 01/03 11:53 Chief complaint: Patient states: left eye feels irritated since 2 am, feels like there iw is something in it, she has been rubbing it. Coronavirus screen: At this time, the client does not indicate any symptoms associated with coronavirus-19. Ebola Screen: Patient negative for fever greater than or equal to 101.5 degrees Fahrenheit, and additional compatible Ebola Virus Disease symptoms Patient denies exposure to infectious person. Patient denies travel to an Ebola-affected area in the 21 days before illness onset. No symptoms or risks identified at this time. Initial Sepsis Screen: Does the patient meet any 2 criteria? Does the patient have a suspected source of infection? No. Patient's initial sepsis screen is negative. Risk Assessment: Do you want to hurt yourself or someone else? Patient reports no desire to harm self or others. 11:53 Method Of Arrival: Ambulatory iw 11:53 Acuity: BRE 3 iw 11:55 Mechanism of Injury: No Mechanism of Injury. The patient denies any loss of vision. iw Onset of symptoms was January 03, 2023. Historical: - Allergies: 11:55 Sulfa (Sulfonamide Antibiotics); iw - PMHx: 11:55 Asthma; iw Screenin:27 [facility] ED Fall Risk Assessment (Adult) History of falling in the last 3 months, kc6 including since admission No falls in past 3 months (0 pts) Confusion or Disorientation Yes (5 pts) Intoxicated or Sedated No (0 pts) Impaired Gait No (0 pts) Mobility Assist Device Used No (0 pt) Altered Elimination No (0 pt) Score/Fall Risk Level 3 or more points = High Risk. Abuse screen: Denies threats or abuse. Denies injuries from another. Nutritional screening: No deficits noted. Tuberculosis screening: No symptoms or risk factors identified. Assessment: 12:26 General: Appears in no apparent distress. comfortable, Behavior is calm, cooperative, kc6 appropriate for age. Pain: Complains of pain in left eye. Neuro: Level of Consciousness is awake, alert, obeys commands, Oriented to person. Cardiovascular: Capillary refill < 3 seconds. Respiratory: Airway is patent Trachea midline Respiratory effort is even, unlabored, Respiratory pattern is regular, symmetrical. GI: No signs and/or symptoms were reported involving the gastrointestinal system. : No signs and/or symptoms were reported regarding the genitourinary system. EENT: Eyes are tearing on outer aspect of conjuctiva of left eye, iris of left eye and inner aspect of conjunctiva of left eye with exudate noted from outer aspect of conjuctiva of left eye, iris of left eye and inner aspect of conjunctiva of left eye Sclera/Cornea are reddened in outer aspect of conjuctiva of left eye, iris of left eye and inner aspect of conjunctiva of left eye. Derm: No signs and/or symptoms reported regarding the dermatologic system. Skin is intact, is healthy with good turgor, Skin is pink, warm \T\ dry. Bruising that is dark purple, yellow, on right arm and left arm. Musculoskeletal: No signs and/or symptoms reported regarding the musculoskeletal system. Circulation, motion, and sensation intact. Capillary refill < 3 seconds, Range of motion: intact in all extremities. 13:18 Reassessment: Patient appears in no apparent distress at this time. No changes from kc6 previously documented assessment. Patient and/or family updated on plan of care and expected duration. Pain level reassessed. 15:21 Reassessment: Patient appears in no apparent distress at this time. No changes from kc6 previously documented assessment. Patient and/or family updated on plan of care and expected duration. Pain level reassessed. 16:26 Reassessment: Patient appears in no apparent distress at this time. Patient and/or kc6 family updated on plan of care and expected duration. Pain level reassessed. 16:26 General: Behavior is cooperative, restless. kc6 17:42 Reassessment: Patient appears in no apparent distress at this time. No changes from kc6 previously documented assessment. Patient and/or family updated on plan of care and expected duration. Pain level reassessed. 18:42 Reassessment: Patient appears in no apparent distress at this time. No changes from kc6 previously documented assessment. Patient and/or family updated on plan of care and expected duration. Pain level reassessed. Vital Signs: 11:53 Pulse 105; Resp 16; Temp 98.5; Pulse Ox 98% on R/A; iw 13:18 BP 128 / 74; Pulse 94; Resp 19 S; Pulse Ox 100% on R/A; kc6 15:21 BP 120 / 79; Pulse 93; Resp 19 S; Pulse Ox 100% on R/A; kc6 16:27 BP 108 / 51; Pulse 95; Resp 19 S; Pulse Ox 100% on R/A; kc6 17:42 BP 107 / 60; kc6 ED Course: 11:33 Patient arrived in ED. mg5 11:34 Tiffanie Vazquez FNP-C [facility]. snw 11:34 Jose Francisco Bose MD is Attending Physician. snw 11:55 Triage completed. iw 12:02 Martina Jain, RODY is Primary Nurse. kc6 12:27 Patient has correct armband on for positive identification. Bed in low position. Call kc6 light in reach. Side rails up X2. Adult w/ patient. 12:27 Arm band placed on. kc6 12:30 Missed attempt(s): 24 gauge in right hand. kc6 12:34 Missed attempt(s): 22 gauge in left hand. Bleeding controlled, band aid applied, mb9 catheter tip intact. 12:36 Osmolality, Serum Sent. kc6 12:36 CMP Sent. kc6 12:36 CBC with Diff Sent. kc6 12:51 UAM Sent. kc6 12:51 Urine Sodium Random Sent. kc6 12:51 Urine Potassium Random Sent. kc6 12:51 Urine Osmolality Sent. kc6 16:13 Sudhakar Ray MD is Hospitalizing Provider. snw 16:51 Inserted saline lock: 20 gauge in right forearm, using aseptic technique. ,using kc6 aseptic technique. placed by RODY Berkowitz. ultrasound line. 19:11 No provider procedures requiring assistance completed. Patient admitted, IV remains in kc6 place. Administered Medications: 12:36 Drug: Tetracaine Ophthalmic Drops 0.5 % 1 drops Route: Ophthalmic; Site: left eye; kc6 15:29 Follow up: Response: No adverse reaction kc6 13:36 Drug: ERYTHromycin Ophthalmic Ointment 1 application Route: Ophthalmic; Site: left eye; kc6 15:29 Follow up: Response: No adverse reaction kc6 13:47 Drug: Fluorescein Ophthalmic Strip 1 strip Route: Ophthalmic; Site: left eye; kc6 15:29 Follow up: Response: No adverse reaction kc6 16:51 Drug: NS 0.9% IV 1000 ml Route: IV; Rate: 125 ml/hr; Site: right forearm; kc6 19:10 Follow up: Response: No adverse reaction; IV Status: Infusion continued upon admission; kc6 IV Intake: 1000ml Medication: 19:11 VIS not applicable for this client. kc6 Intake: 19:10 IV: 1000ml; Total: 1000ml. kc6 Outcome: 16:15 Decision to Hospitalize by Provider. snw 19:11 Admitted to Med/surg accompanied by tech, via stretcher, room 409, with chart, Report kc6 called to RODY Crain 19:11 Condition: stable 19:11 Instructed on the need for admit. 19:11 Patient left the ED. kc6 Signatures: Tiffanie Vazquez, BUSINESS DEVELOPMENT EXECUTIVE-C BUSINESS DEVELOPMENT EXECUTIVE-Csnw Flor Posada RN RN iw Martina Jain RN RN kc6 Richelle Carrizales RN RN Su Graff mg5 Corrections: (The following items were deleted from the chart) 16:31 16:26 Reassessment: Patient appears in no apparent distress at this time. No changes kc6 from previously documented assessment. Patient and/or family updated on plan of care and expected duration. Pain level reassessed. kc6
--- NOTE | 2023-01-03 16:15 | EDPHYS ---
Physician Documentation [facility] Name: Gladys Blevins Age: 62 yrs Sex: Female : 1960 Arrival Date: 01/03/2023 Time: 11:29 Bed 18 Private MD: ED Physician Jose Francisco Bose HPI: 01/03 13:21 This 62 yrs old Female presents to ER via Ambulatory with complaints of Eye Pain - snw Irritation, Confusion. 13:21 to the left eye. Onset: The symptoms/episode began/occurred pt has been having workup snw for neuro problems for over a month, redness to left eye started at 0230 this am. Duration: the symptoms are continuous. Associated signs and symptoms: Pertinent positives: None. Severity of symptoms: At their worst the symptoms were moderate. It is unknown whether or not the patient has had similar symptoms in the past. Multiple, Pt has had 3 MRIs, multiple CTs, and LP, and numerous lab evaluations. Historical: - Allergies: 11:55 Sulfa (Sulfonamide Antibiotics); iw - PMHx: 11:55 Asthma; iw ROS: 13:18 ENT: Negative for injury, pain, and discharge, Neck: Negative for injury, pain, and snw swelling, Cardiovascular: Negative for chest pain, palpitations, and edema, Respiratory: Negative for shortness of breath, cough, wheezing, and pleuritic chest pain, Abdomen/GI: Negative for abdominal pain, nausea, vomiting, diarrhea, and constipation, Back: Negative for injury and pain, : Negative for injury, bleeding, discharge, and swelling, MS/Extremity: Negative for injury and deformity, Skin: Negative for injury, rash, and discoloration, Psych: Negative for depression, anxiety, suicide ideation, homicidal ideation, and hallucinations. 13:18 Constitutional: Positive for malaise, confusion. 13:18 Eyes: Positive for discharge, foreign body sensation, redness, of the outer aspect of conjuctiva of left eye and inner aspect of conjunctiva of left eye. 13:18 Neuro: Positive for confusion. Exam: 13:15 Head/Face: Normocephalic, atraumatic. ENT: Nares patent. No nasal discharge, no snw septal abnormalities noted. Tympanic membranes are normal and external auditory canals are clear. Oropharynx with no redness, swelling, or masses, exudates, or evidence of obstruction, uvula midline. Mucous membranes moist. Neck: Trachea midline, no thyromegaly or masses palpated, and no cervical lymphadenopathy. Supple, full range of motion without nuchal rigidity, or vertebral point tenderness. No Meningismus. Chest/axilla: Normal chest wall appearance and motion. Nontender with no deformity. No lesions are appreciated. Cardiovascular: Regular rate and rhythm with a normal S1 and S2. No gallops, murmurs, or rubs. Normal PMI, no JVD. No pulse deficits. Respiratory: Lungs have equal breath sounds bilaterally, clear to auscultation and percussion. No rales, rhonchi or wheezes noted. No increased work of breathing, no retractions or nasal flaring. Abdomen/GI: Soft, non-tender, with normal bowel sounds. No distension or tympany. No guarding or rebound. No evidence of tenderness throughout. Back: No spinal tenderness. No costovertebral tenderness. Full range of motion. MS/ Extremity: Pulses equal, no cyanosis. Neurovascular intact. Full, normal range of motion. 13:15 Constitutional: The patient appears alert, awake, repeating sentences, states she is confused. Pt seems demented. Spouse patient and reassuring but states this new behavior is variable over the past month. 13:15 Skin: Appearance: normal except for affected area, random areas of ecchymosis from blood draws and some old falls. 13:15 Neuro: Orientation: to person, place, Mentation: confused, Memory: unable to test, Cerebellar function: is grossly normal, Gait: not tested. Babinski testing is normal, seizure activity, is not displayed by the patient. Vital Signs: 11:53 Pulse 105; Resp 16; Temp 98.5; Pulse Ox 98% on R/A; iw 13:18 BP 128 / 74; Pulse 94; Resp 19 S; Pulse Ox 100% on R/A; kc6 15:21 BP 120 / 79; Pulse 93; Resp 19 S; Pulse Ox 100% on R/A; kc6 16:27 BP 108 / 51; Pulse 95; Resp 19 S; Pulse Ox 100% on R/A; kc6 17:42 BP 107 / 60; kc6 Procedures: 13:15 Eye Exam: no noted corneal abrasion, +exudate, erythema to left conjunctiva and lower snw eyelid. MDM: 12:02 Patient medically screened. snw 13:24 Differential diagnosis: Corneal abrasion of Corneal ulcer of Foreign body in Data snw reviewed: vital signs, nurses notes. Historians other than the Patient: Spouse/Significant Other: . Counseling: I had a detailed discussion with the patient and/or guardian regarding: the historical points, exam findings, and any diagnostic results supporting the discharge/admit diagnosis, lab results. 01/03 12:03 Order name: CBC with Diff; Complete Time: 14:58 snw 01/03 12:03 Order name: CMP; Complete Time: 16:09 snw 01/03 12:04 Order name: Osmolality, Serum; Complete Time: 15:52 snw 01/03 12:04 Order name: Urine Osmolality; Complete Time: 13:49 snw 01/03 12:04 Order name: Urine Potassium Random; Complete Time: 13:29 snw 01/03 12:04 Order name: Urine Sodium Random; Complete Time: 13:29 snw 01/03 12:04 Order name: UAM; Complete Time: 13:05 snw 01/03 13:05 Order name: Urine Culture EDTX 01/03 18:02 Order name: Magnesium; Complete Time: 18:35 EDTX 01/03 18:02 Order name: Phosphorus; Complete Time: 18:35 EDMS 01/03 18:02 Order name: Urinalysis w/ reflexes EDTX 01/03 18:02 Order name: Basic Metabolic Panel EDTX 01/03 18:02 Order name: Basic Metabolic Panel EDTX 01/03 18:02 Order name: CBC with Automated Diff EDTX 01/03 18:02 Order name: CBC with Automated Diff EDTX 01/03 18:02 Order name: CONS Physician Consult EDTX 01/03 18:02 Order name: Heart Healthy EDTX 01/03 12:03 Order name: Eye Tray; Complete Time: 12:10 snw 01/03 12:03 Order name: SL; Complete Time: 15:57 snw 01/03 13:22 Order name: Labs - recollect needed: recollect green and red top; Complete Time: 14:22 bd 01/03 16:15 Order name: Misc. Order: please obtain current medication list; Complete Time: 17:03 snw Administered Medications: 12:36 Drug: Tetracaine Ophthalmic Drops 0.5 % 1 drops Route: Ophthalmic; Site: left eye; kc6 15:29 Follow up: Response: No adverse reaction kc6 13:36 Drug: ERYTHromycin Ophthalmic Ointment 1 application Route: Ophthalmic; Site: left eye; kc6 15:29 Follow up: Response: No adverse reaction kc6 13:47 Drug: Fluorescein Ophthalmic Strip 1 strip Route: Ophthalmic; Site: left eye; kc6 15:29 Follow up: Response: No adverse reaction kc6 16:51 Drug: NS 0.9% IV 1000 ml Route: IV; Rate: 125 ml/hr; Site: right forearm; kc6 19:10 Follow up: Response: No adverse reaction; IV Status: Infusion continued upon admission; kc6 IV Intake: 1000ml Disposition: 17:40 I agree with the assessment and plan of care. cp3 Disposition Summary: 01/03/23 16:15 Hospitalization Ordered Hospitalization Status: Inpatient Admission snw Provider: Sudhakar Ray [facility] Condition: Stable snw Problem: an ongoing problem snw Symptoms: have worsened snw Bed/Room Type: Standard snw Room Assignment: 409(01/03/23 18:24) bd Diagnosis - Hypo-osmolality and hyponatremia snw - Neurological changes x 1 month snw Discharge Instructions: - Discharge Summary Sheet snw - Bacterial Conjunctivitis, Adult snw Forms: - Medication Reconciliation Form snw - SBAR form snw Prescriptions: - Polytrim 10,000 unit- 1 mg/mL Ophthalmic drops - instill 1 drop by OPHTHALMIC route 4 times per day for 7 days; 1 Unspecified; snw Refills: 0, Product Selection Permitted Signatures: Dispatcher [employer] Cleopatra Obrien Shelly, FNP-C TIMBER MANAGEMENT SPECIALIST-Csnw Jose Francisco Bose MD MD cp3 Flor Posada RN RN iw Campbell, Kaitlyn, RN RN kc6 Corrections: (The following items were deleted from the chart) 18:24 16:15 snw bd
[2023-01-03] MEDS ORDERED: NA CHLORIDE 0.9% 1,000 ML ONE (16:40)
[2023-01-03] MEDS ORDERED: TRAMADOL HCL 50 MG TAB PO PRN (17:57)
[2023-01-03] MEDS ORDERED: ACETAMINOPHEN 325 MG TABLET PO PRN (17:57)
[2023-01-03] MEDS ORDERED: ONDANSETRON 4 MG/2 ML VIAL IV PRN (18:00)
--- NOTE | 2023-01-03 18:18 | P.HP ---
Certification for Inpatient Patient admitted to: Observation With expected LOS: <2 Midnights Patient will require the following post-hospital care: None Practitioner: I am a practitioner with admitting privileges, knowledge of patient current condition, hospital course, and medical plan of care. Services: Services provided to patient in accordance with Admission requirements found in Title 42 Section 412.3 of the Code of Federal Regulations Patient History Date of Service: 01/03/23 Reason for admission: AMS, Eye iritation History of Present Illness: Patient is a 62-year-old female with a past medical history significant for asthma, hypothyroidism, hyperlipidemia who presents with complaint of eye irritation and altered mental status. Patient has been seen previously on 12/15/2022 and given TNK for suspected CVA and was transferred to [facility] at the [facility]. Patient had an extensive workup including MRI, EEG, echocardiogram, lumbar puncture and AMS was attributed to hyponatremia. Spouse reported that patient has been confused ever since. Patient was again seen in the ER on 12/26/2022 and patient was transferred to [facility] at the [facility] as there was no neurologist on-call. Again patient's spouse reported that patient was discharged after another set of extensive workup and patient was still confused. Patient's Spouse reported that this morning patient started rubbing her left eye due to eye irritation. Patient's spouse reported that patient had episodes of nausea and vomiting 3 days ago. No episode of nausea and vomiting has been reported since. No other signs or symptoms reported. Symptoms are aggravated or relieved by nothing. Patient was brought to the hospital for medical evaluation. Allergies cefuroxime axetil [From Ceftin] Allergy (Intermediate, Verified 01/17/12 00:06) Hives Sulfa (Sulfonamide Antibiotics) [Sulfa(Sulfonamide Antibiotics)] Allergy (Intermediate, Verified 01/17/12 00:06) Nausea/Vomiting Home Medications: Alendronate Sodium 70 mg PO SEECOM 01/03/23 Cefuroxime Axetil [Cefuroxime] 1 tab PO BID 01/03/23 Doxycycline Hyclate 100 mg PO Q12H 01/03/23 Escitalopram Oxalate 10 mg PO DAILY 01/03/23 Famciclovir [Famvir] 500 mg PO BID 01/03/23 levETIRAcetam [Levetiracetam] 500 mg PO DAILY 01/03/23 - Past Medical/Surgical History -: Asthma -: Hypothyroidism -: Hyperlipidemia Past Surgical History: Reviewed- Non-Contributory - Family History Family History: Reviewed- Non-Contributory - Social History Smoking Status: Never smoker Alcohol use: No CD- Drugs: No Caffeine use: Yes Place of Residence: Home Review of Systems is unable to be obtained (Patient confused) Physical Examination - Physical Exam General: Alert, In no apparent distress, Oriented x2, Confused HEENT: Atraumatic, PERRLA, Mucous membr. moist/pink, EOMI, Sclerae nonicteric Neck: Supple, 2+ carotid pulse no bruit, No LAD, Without JVD or thyroid abnormality Respiratory: Clear to auscultation bilaterally, Normal air movement Cardiovascular: No edema, Regular rate/rhythm, Normal S1 S2 Capillary refill: <2 Seconds Gastrointestinal: Normal bowel sounds, Non-distended, No tenderness Musculoskeletal: No clubbing, No tenderness Integumentary: No rashes, No tenderness/swelling Neurological: Normal speech, Normal tone, Normal affect Lymphatics: No axilla or inguinal lymphadenopathy - Studies Laboratory Data (last 24 hrs) 01/03/23 01/03/23 15:35 14:19 WBC 9.40 Hgb 13.3 Hct 39.7 Plt Count 346 Sodium 126 L Potassium 3.9 BUN 6 L Creatinine 0.50 L Glucose 107 H Total Bilirubin 0.3 AST 26 ALT 47 Alkaline Phosphatase 95 Assessment and Plan - Plan --Bacterial conjunctivitis. Continue erythromycin ointment. --Acute metabolic encephalopathy. Patients spouse reported that patient has been confused for the past 1 month. Confusion likely aggravated by UTI. Patient has had extensive workup to ascertain cause of confusion with un remarkable findings. Neurologist consulted. Will await further recommendations. --UTI POA. Patient placed on antibiotics. Urine cultures pending. --Hyponatremia. Nephrology consulted. Will await further recommendations from residency program coordinator. --Asthma. Stable. Continue supportive care. --Hypothyroidism. Continue home medication. --Hyperlipidemia. Continue statin. --DVT prophylaxis with Lovenox subQ Discharge Plan: Home Plan to discharge in: 48 Hours - Advance Directives Does patient have a Living Will: No Does patient have a Durable POA for Healthcare: No - Code Status/Comfort Care Code Status Assessed: Yes Physician Review: Patient Assessed, Agree with Above Assessment and Plan Critical Care: No
[2023-01-03 18:26] LABS: Magnesium 1.7 mg/dL (1.6-2.4); Phosphorus 3.2 mg/dL (2.5-4.9)
[2023-01-03] MEDS ORDERED: CEFTRIAXONE 1,000 MG in NA CHLORIDE 0.9% 50 ML IVPB SCH (19:00)
[2023-01-03] MEDS: CIPROFLOXACIN 400mg IV 400 MG/200 ML BAG IV SCH (20:31)
[2023-01-03] MEDS: ENOXAPARIN 40 MG/0.4 ML SQ SCH (20:31)
[2023-01-03] MEDS: ERYTHROMYCIN 1 APPL/1 GM TUBE LEFT EYE SCH (20:32)
[2023-01-03 21:37] VITALS: BMI 24.0
[2023-01-04 06:56] LABS: Potassium 3.4 mEq/L (3.5-5.1)
[2023-01-04 06:59] LABS: Lymphocytes % 31.9 % (15.3-44.8); MCV 86.7 fL (80-100); MPV 7.3 fL (7.6-11.3); Platelets 254 thou/uL (152-406); RBC Red Blood Cell Count 4.26 M/uL (3.86-4.86)
[2023-01-04] MEDS ORDERED: MAGNESIUM SULFATE 1 gm IVPB 1 GM/100 ML BAG IV ONE (08:00)
[2023-01-04] MEDS: FAMCICLOVIR 500 MG PO SCH ×2 (09:00→21:00)
[2023-01-04] MEDS: ERYTHROMYCIN 1 APPL/1 GM TUBE LEFT EYE SCH (09:00)
[2023-01-04] MEDS ORDERED: levETIRAcetam 500 MG TAB PO SCH (09:00)
[2023-01-04] MEDS ORDERED: POTASSIUM CL SA 10 MEQ TAB PO ONE ×2 (09:00→15:15)
[2023-01-04] MEDS: CIPROFLOXACIN 400mg IV 400 MG/200 ML BAG IV SCH ×2 (09:12→21:09)
[2023-01-04] MEDS: ASPIRIN 81 MG CHEWABLE TABLET PO SCH (09:12)
[2023-01-04] MEDS: ENOXAPARIN 40 MG/0.4 ML SQ SCH (09:12)
[2023-01-04] MEDS: ESCITALOPRAM 20 MG TAB PO SCH (09:13)
[2023-01-04] MEDS: ERYTHROMYCIN 3.5GM OPTH OINT LEFT EYE SCH ×2 (10:45→21:10)
[2023-01-04] MEDS ORDERED: POTASSIUM 25 MEQ EFFERV TAB PO ONE (16:45)
[2023-01-04] MEDS ORDERED: Magnesium Sulfate 2gm IVPB 2 G/50 ML BAG IV ONE (16:45)
[2023-01-04] MEDS ORDERED: DIVALPROEX DR 250 MG TAB PO ONE (17:00)
[2023-01-04 17:05] LABS: Specific Gravity 1.013 (1.005-1.030); Urine Bacteria None Seen /HPF (<20); Urine Bilirubin NEGATIVE (Negative); Urine Blood Trace (Negative); Urine Clarity Turbid (Clear); Urine Color Light-Yellow (Yellow); Urine Crystals Unidentified Few /HPF (None Seen); Urine Glucose NEGATIVE (Negative); Urine Protein NEGATIVE (Negative); Urine RBC <5 /HPF (None Seen); Urine Urobilinogen Normal (Normal)
[2023-01-04] MEDS ORDERED: LORazepam 2 MG/ML VIAL IV ONE (17:15)
[2023-01-04] MEDS: SODIUM CHLORIDE 1 GM TAB PO SCH (17:34)
--- NOTE | 2023-01-04 18:51 | CON ---
Date of Consultation: 01/04/2023 Reason For Consultation: Hyponatremia. History Of Present Illness: This is a pleasant 62-year-old female with significant past medical hist ory of hyponatremia, well known to me from the previous admission, hypothyroidism, atypical bacterial meningitis, osteoporosis. The patient recently admitted to the hospital, transferred to [facility], ound bacterial meningitis, found to have hyponatremia with encephalopathy. The patient discharged, r eadmitted to our hospital a week ago with altered mental status, metabolic. The patient apparently c antonio to the hospital at that time, treated, and the patient recovered and discharged. The patient cam e to the hospital again complaining from alter mental status. Still has altered confusion with nause a and vomiting. Primary workup showed hyponatremia yesterday was 126. For that reason, w e have been consulted. Past Medical History: Includes hypothyroidism, hyponatremia, osteoporosis, atypical bacterial mening itis. Allergies: CEFUROXIME AND SULFA. Past Surgical History: Negative. Family History: Positive for hypertension. Social History: Denied smoking, denied drinking, denied drugs abuse. Review of Systems: Head and Neck: No red eye. No ear pain. GI: Has nausea and vomiting. : No polyuria. No dysuria. No hematuria. Pharmacy Care Coordinator: No vaginal discharge. Respiratory: No shortness of breath. Cardiovascular: No chest pain. Endocrine: No polydipsia. Skin: No rash. Neuro: Has altered mental status. Musculoskeletal: Low back pain. Physical Examination: Vital Signs: When I saw the patient; blood pressure 147/67, pulse of 88, afebrile. Chest: Clear to auscultation. Heart: S1, S2. Regular. Abdomen: Soft, nontender. Extremity: No edema. Neurologic: Alert. No focality. Laboratory Data: Yesterday; sodium 126, potassium 3.9, creatinine 0.5. Today lab data; sodium 129, potassium 3.4, bicarb 26. BUN 6, creatinine 0.4. GFR 108. Urinalysis; specific gravity of 1.015, R BC 10, leukocyte esterase 250, WBC of 20. Urine sodium 23. Phosphorus 3.2. Assessment And Plan: 1.Hyponatremia secondary to SIADH. Full workup has been done. I am going to restart the patient on the salt tablet with Lasix and we will continue to monitor the patient. We will add uric acid. 2.Hypertension, controlled, optimal. Continue current treatment. 3.Hypomagnesemia, resolved. 4.Hypokalemia. We will supplement. 5.Altered mental status. Doubt to be secondary to hyponatremia with current degree of sodium and st ill altered mental status, mostly secondary to metabolic secondary to the urinary tract infection. 6.Urinary tract infection. I agree with current antibiotic. We will follow up with culture. Time spent examining the patient [id number], reviewing data, lab and radiology, placing orders, dis cussing the case with the patient, discussing the case with the member and hospitalist more than 75 m inutes. JANET Voice ID: [id number] Report ID: [id number]
[2023-01-04] MEDS: DIVALPROEX DR 250 MG TAB PO SCH (21:09)
[2023-01-04] MEDS: levETIRAcetam 500 MG TAB PO SCH (21:10)
[2023-01-04 22:32] VITALS: O2SAT 95
[2023-01-05 07:03] LABS: Albumin 3.2 g/dL (3.4-5.0); Phosphorus 3.4 mg/dL (2.5-4.9); Uric Acid 3.3 mg/dL (2.6-6.0)
[2023-01-05 08:14] VITALS: BP 107/66; TEMP 98.6
[2023-01-05] MEDS: ASPIRIN 81 MG CHEWABLE TABLET PO SCH (08:16)
[2023-01-05] MEDS: ENOXAPARIN 40 MG/0.4 ML SQ SCH (08:16)
[2023-01-05] MEDS: levETIRAcetam 500 MG TAB PO SCH (08:16)
[2023-01-05] MEDS: CIPROFLOXACIN 400mg IV 400 MG/200 ML BAG IV SCH (08:16)
[2023-01-05] MEDS: ERYTHROMYCIN 3.5GM OPTH OINT LEFT EYE SCH (08:16)
[2023-01-05] MEDS: SODIUM CHLORIDE 1 GM TAB PO SCH (08:17)
[2023-01-05] MEDS: DIVALPROEX DR 250 MG TAB PO SCH (08:17)
[2023-01-05] MEDS: ESCITALOPRAM 20 MG TAB PO SCH (08:17)
[2023-01-05] MEDS: FAMCICLOVIR 500 MG PO SCH (08:17)
--- NOTE | 2023-01-05 14:57 | P.PN ---
Subjective Date of Service: 01/05/23 Chief Complaint: AMS, Eye iritation Physical Examination - Vital Signs Temperature: 98.6 F Blood Pressure: 107/66 Pulse: 78 Respirations: 16 Pulse Ox (%): 99 - Studies Laboratory Data (last 24 hrs) 01/05/23 01/05/23 05:40 00:18 Sodium 129 L Potassium 4.0 D BUN 7 Creatinine 0.45 L Glucose 91 Uric Acid 3.3 Phosphorus 3.4 Magnesium 2.2 Microbiology Data (last 24 hrs): 01/03/23 12:48 Clean Catch Urine [place] Count - Final No growth. 01/03/23 12:48 Clean Catch Urine - Final No growth. Assessment And Plan - Plan 1. Hyponatremia secondary to SIADH. Full workup has been done. I am going to restart the patient on the salt tablet with Lasix and we will continue to monitor the patient. We will add uric acid. 2. Hypertension, controlled, optimal. Continue current treatment. 3. Hypomagnesemia, resolved. 4. Hypokalemia. We will supplement. 5. Altered mental status. Doubt to be secondary to hyponatremia with current degree of sodium and still altered mental status, mostly secondary to metabolic secondary to the urinary tract infection. 6. Urinary tract infection. I agree with current antibiotic. We will follow up with culture. Physician Review: Patient Assessed, Agree with Above Assessment and Plan
[2023-01-05] MEDS ORDERED: SODIUM CHLORIDE 1 GM TAB PO SCH (17:00)
--- NOTE | 2023-01-09 21:58 | P.PN ---
Date of Service: 01/04/23 Subjective Patient clinically doing well. Confusion has improved. Patient following commands. Patient knows she is in the hospital and she knows that she is in [place].She does not want go to a nursing facility. Her was at bedside and I had a long talk with him as well. It appears she has some more behavioral issues and I gave him some information for [facility] at [facility]. He is not really able to deal with her at home because she is so active. Physical Examination - Physical Exam General: Alert, In no apparent distress, Oriented x2-3, Follows commands but if she is having some behavioral issues and she does not really comply with what we tell her. We asked her to stay in bed but when she does not want to she will climb out of bed on her own. She gets out of bed and goes to the bathroom without calling the call light. Respiratory: Clear to auscultation bilaterally, Normal air movement Cardiovascular: No edema, Regular rate/rhythm, Normal S1 S2 Gastrointestinal: Normal bowel sounds, Non-distended, No tenderness Musculoskeletal: No clubbing, No tenderness Integumentary: No rashes, No tenderness/swelling Neurological: No focal deficits; cranial nerves are intact and strength is 5/5 Assessment and Plan - Assessment 1. Altered mental status; Behavioral disturbances 2. Urinary tract infection 3. Chronic hyponatremia 4. Asthma 5. Hypothyroidism 6. Dyslipidemia 7. Bacterial conjunctivitis. Continue erythromycin ointment. - Plan 1. Altered mental status/behavioral disturbances; patient is following commands and patient is resistant to being transferred to a facility for further care. She states that she told her she wanted to go home. He agrees that he will take her home but he Is having a hard time dealing with her as she is very active and he tends to want to just sit around. She was wanting to walk around the nurses station, but he was not really wanting to do that. She started going without him and he decided to walk with her. She walked a couple laps without any difficulty.I did have a long talk with him and told him that if he wants to be medical power of finance attorney he would have to have a doctor to clear her incompetent. Otherwise, I do have to comply with her wishes at this time as she is able to answer most of my questions appropriately. 2. UTI; chronic. Continue with antibiotics 3. 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 Asthma; inhaler therapy 5. Hypothyroidism; continue Synthroid 6. Dyslipidemia continue with statin therapy 7. Bacterial conjunctivitis; on erythromycin ointment. We will continue Discharge Plan: Home Plan to discharge in: 48 Hours - Advance Directives Does patient have a Living Will: No Does patient have a Durable POA for Healthcare: No - Code Status/Comfort Care Code Status Assessed: Yes Physician Review: Patient Assessed, Agree with Above Assessment and Plan Critical Care: No
--- NOTE | 2023-01-09 22:09 | P.DS ---
Discharge Date: 01/05/23 Disposition: ROUTINE DISCHARGE Discharge Condition: GOOD Reason for Admission: AMS, Eye iritation Brief History of Present Illness: Patient is a 62-year-old female with a past medical history significant for asthma, hypothyroidism, hyperlipidemia who presents with complaint of eye irritation and altered mental status. Patient has been seen previously on 12/15/2022 and given TNK for suspected CVA and was transferred to [facility] at the [facility]. Patient had an extensive workup including MRI, EEG, echocardiogram, lumbar puncture and AMS was attributed to hyponatremia. Spouse reported that patient has been confused ever since. Patient was again seen in the ER on 12/26/2022 and patient was transferred to [facility] as there was no neurologist on-call. At that time, patient was told she may have had a viral meningitis that caused her symptoms. Subtle EEG changes and MRI changes with no significant acute abnormalities. Again patient's spouse reported that patient was discharged after another set of extensive workup and patient was still confused. Patient's Spouse reported that this morning patient started rubbing her left eye due to eye irritation. Patient's spouse reported that patient had episodes of nausea and vomiting 3 days ago. No episode of nausea and vomiting has been reported since. No other signs or symptoms reported. Symptoms are aggravated or relieved by nothing. Patient was brought to the hospital for medical evaluation. Hospital Course: Patient was admitted for bacterial conjunctivitis versus viral conjunctivitis likely been treated as an outpatient. However, the did not want take her home because he was having a hard time dealing with her. She is able to make her own decisions and she answers most of my questions fairly approp riately. There are some things that she misses but those are mainly very specific questions. I do not think she is incompetent and she is able to make her own decisions at this point. Her wants to try to get medical power of credit card control clerk so we can make decisions for her, but I did inform him that he would need to have a physician declare her incompetent and then he could get paperwork initiated to become medical power of credit card control clerk. I think issues he has a hard time dealing with is that she is very active and he is not able to get her to comply with a lot of his wishes. She tends to go off on her own and ambulate on her own without her really compliant with what he wants. She does seem like she would benefit from taking his directions as she does jeopardize herself by doing things as quickly as she does. But these are things that she is able to make her own decisions regarding. We could argue that she is having some behavioral issues as she does not really comply with a lot of what we ask her to do. We could use medications like Depakote for mood disorders to see if we could get her to be a little bit more compliant with some of our request and help with her safety going forward. I did give him information regarding [facility] so she could get a med psych evaluation done and they could monitor her in a close unit and see if she would benefit from treatment. However, at this time she is not wanting to be admitted to an inpatient facility such as a retirement or a alf facility nor does she want to go to an inpatient rehab. She would not qualify for inpatient rehab as she is walking laps around the nurses station. In light of this we are going to go ahead and discharge her home with outpatient follow-up with her PCP and neurology. He may also want a Ritu psych eval done to see if she will qualify to being admitted to [facility] and I did give him the number and the print out to the facility. Vital Signs/Physical Exam: Temp Pulse Resp BP Pulse Ox 98.6 F 78 16 107/66 99 01/05/23 14:57 01/05/23 14:57 01/05/23 14:57 01/05/23 14:57 01/05/23 14:57 General: Alert, In no apparent distress, Oriented x3 Laboratory Data at Discharge: WBC 6.10 thou/uL (4.3-10.9) 01/04/23 06:13 Hgb 12.8 g/dL (12.0-15.0) 01/04/23 06:13 Hct 37.0 % (36.0-45.0) 01/04/23 06:13 Plt Count 254 thou/uL (152-406) D 01/04/23 06:13 Sodium 129 mEq/L (136-145) L 01/05/23 05:40 Potassium 4.0 mEq/L (3.5-5.1) D 01/05/23 05:40 BUN 7 mg/dL (7-18) 01/05/23 05:40 Creatinine 0.45 mg/dL (0.55-1.02) L 01/05/23 05:40 Glucose 91 mg/dL (74-106) 01/05/23 05:40 Uric Acid 3.3 mg/dL (2.6-6.0) 01/05/23 05:40 Phosphorus 3.4 mg/dL (2.5-4.9) 01/05/23 05:40 Magnesium 2.2 mg/dL (1.6-2.4) 01/05/23 00:18 Total Bilirubin 0.3 mg/dL (0.2-1.0) 01/03/23 15:35 AST 26 U/L (15-37) 01/03/23 15:35 ALT 47 U/L (13-56) 01/03/23 15:35 Alkaline Phosphatase 95 U/L (45-117) 01/03/23 15:35 Home Medications: Alendronate Sodium 70 mg PO SEECOM 01/03/23 Escitalopram Oxalate 10 mg PO DAILY 01/03/23 Famciclovir [Famvir] 500 mg PO BID 01/03/23 levETIRAcetam [Levetiracetam] 500 mg PO DAILY 01/03/23 Aspirin Chewable [Aspirin Chewable*] 81 mg PO DAILY #30 tab.chew 01/05/23 Erythromycin Opth [Erythromycin Eye Ointment*] 1 appl LEFT EYE BID #1 tube 01/05/23 Sodium Chloride Tab [Sodium Chloride*] 2 gm PO BIDWM #120 tab 01/05/23 New Medications: Aspirin Chewable [Aspirin Chewable*] 81 mg PO DAILY #30 tab.chew Erythromycin Opth [Erythromycin Eye Ointment*] 1 appl LEFT EYE BID #1 tube Sodium Chloride Tab [Sodium Chloride*] 2 gm PO BIDWM #120 tab Physician Discharge Instructions: OK TO DC IV AND DC HOME FOLLOW-UP WITH PRIMARY CARE PROVIDER IN 1-2 WEEKS FOLLOW-UP WITH NEUROLOGY in 1-2 weeks RETURN TO THE ER IF symptoms worsen CALL DR. WAYNE AT [phone] IF ANY QUESTIONS REGARDING HOSPITAL STAY. PLEASE CALL THE FLOOR AT [phone] IF ANY MEDICATION OR NURSING QUESTIONS. Diet: Regular Activity: Fall precautions Followup: Morgan Wren MD [ASSOCIATE-ACTIVE - CAN ADMIT] - Aldo Lara MD [Primary Care Provider] - Time spent managing pt's care (in minutes): 55
== END 2023-01-05 15:35 | disposition home or self-care (01) | DRG 643 ==
LOC: ER 11:29 → INTOOBSV 17:56 → ERHOLD 17:56 → OBSVTOIN 17:56 → UNDOADMOB 17:56 → ERHOLD 18:57 → 4TH 18:57 → OBSVTOIN 01-05 08:32 → 4TH 01-05 08:32 → ERHOLD 01-05 08:32
PROVIDERS: ADMIT Hospitalist; ATTEND Hospitalist
DX: E22.2 Syndrome of inappropriate secretion of antidiuretic hormone (principal); G93.41 Metabolic encephalopathy; N39.0 Urinary tract infection, site not specified; H10.89 Other conjunctivitis; E87.6 Hypokalemia; E03.9 Hypothyroidism, unspecified; M81.0 Age-related osteoporosis without current pathological fracture; E83.42 Hypomagnesemia; E78.5 Hyperlipidemia, unspecified; J45.909 Unspecified asthma, uncomplicated; F03.90 Unspecified dementia, unspecified severity, without behavioral disturbance, psychotic disturbance, mood disturbance, and anxiety; Z88.2 Allergy status to sulfonamides; Z79.899 Other long term (current) drug therapy
CPT/HCPCS: 36415; 80048; 80053; 80069; 81001; 83735; 83930; 83935; 84100; 84132; 84300; 84550; 85025; 87086; 87088; 96360; 96361; 97161; 99285; J0744; J1650; J3475; J7030

== ENCOUNTER 2023-01-09 17:04 | Inpatient (IN) | payer BC ==
--- OUTSIDE RECORDS SUMMARY | 2023-01-09 17:11 | XMS REPORT | Continuity of Care Document ---
:1960 Author Organization [facility] t Address [address] [place] [address] [address] [place] [address] Care Team Providers Name Role Phone BURT FISHER Primary Care Physician Unavailable CAL ENCISO Attending Clinician Unavailable SUDHAKAR WILCOX I Attending Clinician Unavailable JORDYN JOHNS Attending Clinician Unavailable AALIYAH SCHWAB Attending Clinician Unavailable AALIYAH SCHWAB Attending Clinician Unavailable HERMAN OCONNOR Attending Clinician Unavailable Isaias LAO, Yuli Teresa Attending Clinician [phone] Cal Enciso MD Attending Clinician Herman Oconnor MD Attending Clinician JULIA DE LA ROSA Attending Clinician Unavailable Jorydn Johns MD Attending Clinici an Martha Hernandez MD Attending Clinician Sudhakar Wilcox MD, I Attending Clinician Julia De La Rosa MD Attending Clinician [phone] Jose M Kelly MD Attending Clinician CAL ENCISO Admitting Clinician Unavailable JORDYN JOHNS Admitting Clinician Unavailable Payers Payer Name Policy Type Policy Number Effective Date Expiration Date Priscila metzger BS OS [id number] 2021 00:00:00 POS/PPO/EPO Problems Condition Condition Condition Status Onset Resolution Last Treating Co mments Source Name Details Category Date Date Treatment Clinician Date Encephalop Encephalop Disease Active [facility] acute athy acute 8-02 Ericka kes 00:00: Medical 00 Center Viral Viral Disease Active [facility] meningitis meningitis 7 Ericka kes 00:00: Medical 00 Center SIRS SIRS Disease Active [facility] (systemic (systemic 12-16 [facility] s inflammato inflammato 00:00: Me dical ry ry 00 Center response response syndrome) syndrome) Acute Acute Disease Active [facility] encephalop encephalop 7- Ericka kes athy athy 00:00: Medical 00 Center Allergies, Adverse Reactions, Alerts Allergy Allergy Status Severity Reaction(s) Onset Inactive Treating Comm ents Source Name Type Date Date Clinician SULFA Allergy Active Low Nausea [facility] (SULFONA 12-15 [facility] 00:00: Medical ANTIBIOT 00 Center ICS) Sulfa Propensi Active Nausea Only, [facility] (Sulfona ty to Palpitations 12-15 Ericka kes mide adverse 00:00: Medical Antibiot reaction 00 Center ics) s PENICILL DRUG Active ITCHING [facility] IN INGREDI 6-24 ity of 00:00: [place] [address] Medical Branch SULFA Drug Active N/V Univers (SULFONA Class 6-24 ity of MIDE 00:00: [place] ANTIBIOT 00 Medical ICS) Branch Social History Social Habit Start Date Stop Date Quantity Comments Source History SDOH [facility] Transport [facility]-Med Medical [facility] History SDOH [facility] Housing Places Medical Ce nter Lived Exposure to 2022-12-17 2022-12-[address] [facility] SARS-CoV-2 (event) 00:00:00 16:32:00 Medica l Center Tobacco use and 2022-12-15 2022-12-[address] [facility] exposure 00:00:00 00:00:00 non-user Medical Center Alcohol intake 2022-12-15 2022-12-[address] [facility] 00:[facility]:00 00:00:00 non-drinker Medical Cente r (finding) History [facility] 2022-12-15 2022-12-15 2 [facility] Transport Med 00:00:00 00:00:[address] [facility] 2022-12-15 2022-12-15 2 [facility] Housing Unable to 00:00:00 00:00:00 Medical Center Pay History [facility] 2022-12-15 2022-12-15 2 [facility] Housing Homeless 00:00:00 00:00:00 Medical Center Last Year Sex Assigned At [birth year] [facility] 00:00:00 00:00:00 [facility] Smoking Status Start Date Stop Date Source Never smoked tobacco [facility] Medications Ordered Filled Start Stop Current Ordering Indication Dosage Frequency Signature Comments Components Source Medication Medication Date Date Medication? Clinician (SIG) Name Name levETIRAcet 2023- Yes 500mg Q.5D Take [address] [facility] (KEPPRA) 12-28 tablet [facility] 500 MG 00:00: 23:59 (500 mg Medical tablet 00 :00 total) by Center mouth 2 (two) times daily . levETIRAcet 2023- Yes 500mg Q.5D Take [address] [facility] (KEPPRA) 12-28 tablet [facility] 500 MG 00:00: 23:59 (500 mg Medical tablet 00 :00 total) by Center mouth 2 (two) times daily . levothyroxi 2023- Yes 75ug Take [address] [facility] ne 12-23- tablet (75 [facility] (SYNTHROID, 00:00: 23:59 mcg total) Medical LEVOTHROID) 00 :00 by mouth Cent er 75 MCG Every tablet morning on an empty stomach. levothyroxi 2023- Yes 75ug Take [address] [facility] ne 12-23-28 tablet (75 [facility] (SYNTHROID, 00:00: 23:59 mcg total) Medical LEVOTHROID) 00 :00 by mouth Cent er 75 MCG Every tablet morning on an empty stomach. escitalopra 2022- Yes 10mg QD Take [address] [facility] m oxalate 12-23-27 tablet (10 Majo es (LEXAPRO) 00:00: 23:59 mg total) Me dical 10 MG 00 :00 by mouth Center tablet daily for 90 days. escitalopra 2022- Yes 10mg QD Take [address] [facility] m oxalate 12-23 tablet (10 Majo es (LEXAPRO) 00:00: 23:59 mg total) Me dical 10 MG 00 :00 by mouth Center tablet daily for 90 days. atorvastati 2023- Yes 80mg QD Take [address] [facility] n (LIPITOR) 12-22 tablet (80 L ukes 80 MG 00:00: 23:59 mg total) Medica l tablet 00 :00 by mouth Center nightly. thiamine 2023- Yes 100mg QD Take 1 [facility] 100 MG 12-22 tablet [facility] tablet 00:00: 23:59 (100 mg Medical 00 :00 total) by Center mouth daily. atorvastati 2023- Yes 80mg QD Take [address] [facility] n (LIPITOR) 12-22 tablet (80 L ukes 80 MG 00:00: 23:59 mg total) Medica l tablet 00 :00 by mouth Center nightly. thiamine 2023- Yes 100mg QD Take 1 [facility] t 100 MG 12-22 tablet [facility]ukes tablet 00:00: 23:59 (100 mg Medical 00 :00 total) by Center mouth daily. doxycycline 2022- No 100mg Take [address] (MONODOX) 12-22 capsule [facility] 100 MG 00:00: 23:59 (100 mg Medical capsule 00 :00 total) by Center mouth every 12 (twelve) hours for 4 days. doxycycline 2022- No 100mg Take [address] (MONODOX) 12-22 capsule [facility]ukes 100 MG 00:00: 23:59 (100 mg Medical capsule 00 :00 total) by Center mouth every 12 (twelve) hours for 4 days. Vital Signs Vital Name Observation Time Observation [...] 147.3 cm WEIGHT 2022-12-15 04:00:00 58.2 kg Systolic blood 2022-12-28 08:39:00 114 mm[Hg] [facility] Diastolic blood 2022-12-28 08:39:00 53 mm[Hg] [facility] Heart rate 2022-12-28 08:39:00 67 /min [facility] Body temperature 2022-12-28 08:39:00 36.06 Kate [facility] Respiratory rate 2022-12-28 08:39:00 18 /min [facility] Oxygen saturation in 2022-12-28 08:39:00 98 /min [facility] Arterial blood by Medical Ce nter Pulse oximetry Body height 2022-12-27 15:45:00 147.3 cm [facility] Body weight 2022-12-27 15:45:00 58.06 kg [facility] BMI 2022-12-27 15:45:00 26.75 kg/m2 [facility] Procedures Procedure Date / Time Performing Clinician Source Performed EEG AWAKE AND DROWSY 2022-12-28 12:28:15 Emilia Ramirez [facility] MR BRAIN WITH & WITHOUT 2022-12-28 08:22:00 Emilia Ramirez [facility] IV CONTRAST [facility] CBC W/PLT COUNT & AUTO 2022-12-28 04:53:00 Cal Enciso [facility] COMPREHENSIVE METABOLIC 2022-12-28 04:53:[address] [facility] CBC W/PLT COUNT & AUTO 2022-12-28 04:53:00 Cal Enciso [facility] EEG AWAKE AND DROWSY 2022-12-27 18:03:52 Emilia Ramirez [facility] URINALYSIS W/ REFLEX 2022-12-27 17:42:[address] [facility] URINE CULTURE [facility] CBC W/PLT COUNT & AUTO 2022-12-27 17:33:00 Cal Enciso [facility] COMPREHENSIVE METABOLIC 2022-12-27 17:33:[address] [facility] MAGNESIUM 2022-12-27 17:33:00 Cal Enciso [facility] PHOSPHORUS 2022-12-27 17:33:00 [facility]INR 2022-12-27 17:33:00 Cal Enciso [facility] LACTIC ACID, VENOUS 2022-12-27 17:33:00 Cal Enciso [facility] CBC W/PLT COUNT & AUTO 2022-12-27 17:33:00 Cal Enciso [facility] BLOOD CULTURE 2022-12-27 17:32:00 [facility] W/PLT COUNT & AUTO 2022-12-22 05:14:00 [facility] 2022-12-22 05:14:00 [facility] 2022-12-22 05:14:00 Roger Nelson [facility] PHOSPHORUS 2022-12-22 05:14:00 Roger Nelson [facility] CBC W/PLT COUNT & AUTO 2022-12-22 05:14:00 [facility] W/[facility]T [facility] & AUTO 2022-12-21 04:56:00 Roger Nelson [facility] BASIC METABOLIC PANEL 2022-12-21 04:56:00 Roger Nelson [facility] MAGNESIUM 2022-12-21 04:56:00 Roger Nelson [facility] PHOSPHORUS 2022-12-21 04:56:00 [facility] CBC W/PLT COUNT & AUTO 2022-12-21 04:56:00 Roger Nelson [facility] MR BRAIN WITH & WITHOUT 2022-12-20 09:25:00 Roger Nelson [facility] IV CONTRAST [facility] CBC W/PLT COUNT & AUTO 2022-12-20 05:29:00 Roger Nelson [facility] BASIC METABOLIC PANEL 2022-12-20 05:29:00 Roger Nelson [facility] MAGNESIUM 2022-12-20 05:29:00 Roger Nelson [facility] PHOSPHORUS 2022-12-20 05:29:00 Roger Nelson [facility] CBC W/PLT COUNT & AUTO 2022-12-20 05:29:00 [facility] POT[facility] 2022-12-19 18:29:00 Julia De La Rosa [facility] CBC W/PLT COUNT & AUTO 2022-12-19 04:30:00 Roger Nelson [facility] BASIC METABOLIC PANEL 2022-12-19 04:30:00 Roger Nelson [facility] MAGNESIUM 2022-12-19 04:30:00 [facility] PHOS[facility]US 2022-12-19 04:30:00 Roger Nelson [facility] RICKETTSIA AB PANEL WITH 2022-12-19 04:30:00 Roger Nelson [facility] REFLEX TO [place] [facility] [place] BARTONELLA HENSELAE ABS, 2022-12-19 04:30:00 Roger Nelson [facility] REFLEX TO [place] [facility] [place] LEGIONELLA PNEUMOPHILA 2022-12-19 04:30:00 Roger Nelson [facility] ANTIBODY (IGG) Medical Center CBC W/PLT COUNT & AUTO 2022-12-19 04:30:00 [facility] SODI[facility] RANDOM URINE 2022-12-18 20:23:00 Ami-Kimberly, Sung In [facility] OSMOLALITY, URINE 2022-12-18 20:23:00 Ami-Kimberly, Sung In [facility] OSMOLALITY, SERUM 2022-12-18 20:23:00 Ami-Kimberly, Sung In [facility] PHOSPHORUS 2022-12-18 14:01:00 Roger Nelson [facility] POTASSIUM 2022-12-18 14:01:00 [facility] 2022-12-18 14:01:00 [facility] W/[facility]T COUNT & AUTO 2022-12-18 06:19:00 Roger Nelson [facility] BASIC METABOLIC PANEL 2022-12-18 06:19:00 Roger Nelson [facility] MAGNESIUM 2022-12-18 06:19:00 Roger Nelson [facility] PHOSPHORUS 2022-12-18 06:19:00 Roger Nelson [facility] CBC W/PLT COUNT & AUTO 2022-12-18 06:19:00 Romel Gonzalez [facility] IRON, TIBC, % SAT. 2022-12-18 04:15:00 Romel Gonzalez [facility] (WITHOUT FERRITIN) [facility] 2022-12-18 04:15:00 Romel Gonzalez [facility] VARICELLA ZOSTER 2022-12-17 16:20:00 Romel Gonzalez [facility] ANTIBODY, IGG [facility] POTASSIUM 2022-12-17 16:20:00 Nazariota [facility] LUMBAR PUNCTURE 2022-12-17 11:06:26 Cornell Javier [facility] RICKETTSIA AB PANEL WITH 2022-12-17 10:33:00 Eulalio Vargas [facility] REFLEX TO [facility] POCT-GLUCOSE METER 2022-12-17 10:30:00 Alondra Rinaldi [facility] Medical Ce nter CSF CELL COUNT 2022-12-17 10:20:00 FortinoEulalio alvarez [facility] W/DIFFERENTIAL [facility] PROTEIN, CSF 2022-12-17 10:20:00 [facility] GLUCOSE, CSF 2022-12-17 10:20:00 [facility] CSF CULTURE + GRAM STAIN 2022-12-17 10:20:00 FortinoEulalio alvarez [facility] VARICELLA ZOSTER PCR, 2022-12-17 10:20:00 Romel Gonzalez [facility] [place] VIRUS, CSF, IGG 2022-12-17 10:20:00 [facility] HSV 1/2 PCR, QUALITATIVE 2022-12-17 10:20:00 Jesus Gonzalez [facility] LIMITED 2D ECHOCARDIOGRAM 2022-12-17 09:17:00 David De Jesus [facility] CBC W/PLT COUNT & AUTO 2022-12-17 03:31:00 Roger Nelson [facility] BASIC METABOLIC PANEL 2022-12-17 03:31:00 Roger Nelson [facility] MAGNESIUM 2022-12-17 03:31:00 Roger Nelson [facility] PHOSPHORUS 2022-12-17 03:31:00 Roger Nelson [facility] VANCOMYCIN LEVEL, TROUGH 2022-12-17 03:31:00 Marcellus Moser [facility] CBC W/PLT COUNT & AUTO 2022-12-17 03:31:00 Romel Gonzalez [facility] EEG 12-26 HR CONTINUOUS 2022-12-16 16:27:21 Nicolás López [facility] MONITORING WITH VIDEO Eulalio Espinal nter LIPID PANEL 2022-12-16 04:29:00 David De Jesus [facility] CBC W/PLT COUNT & AUTO 2022-12-16 04:29:00 Roger Nelson [facility] BASIC METABOLIC PANEL 2022-12-16 04:29:00 [facility] MAGNESIUM 2022-12-16 04:29:00 [facility] PHOSPHORUS 2022-12-16 04:29:00 Roger Nelson [facility] CBC W/PLT COUNT & AUTO 2022-12-16 04:29:00 Romel Gonzalez [facility] BLOOD CULTURE 2022-12-15 19:50:00 Abelino Cordon [facility] BLOOD CULTURE 2022-12-15 19:37:00 Abelino Cordon [facility] LACTIC ACID, VENOUS 2022-12-15 19:36:00 Romel Gonzalez [facility] URINALYSIS W/ MICROSCOPIC 2022-12-15 18:47:00 Abelino Cordon I [facility] XR CHEST 1 VIEW PORTABLE 2022-12-15 18:16:00 Jesus Gonzalez [facility] / BEDSIDE [facility] CBC W/PLT COUNT & AUTO 2022-12-15 17:48:00 Romel Gonzalez [facility] COMPREHENSIVE METABOLIC 2022-12-15 17:48:00 Romel Gonzalez [facility] PANEL [facility] MAGNESIUM 2022-12-15 17:48:00 Romel Gonzalez [facility] PHOSPHORUS 2022-12-15 17:48:00 Romel Gonzalez [facility] PROCALCITONIN 2022-12-15 17:48:00 Carlos Romel [facility] CBC W/PLT COUNT & AUTO 2022-12-15 17:48:00 Carlos Romel [facility] MRA NECK WITHOUT IV 2022-12-15 16:50:00 Romel Gonzalez [facility] CONTRAST [facility] MRA HEAD WITHOUT IV 2022-12-15 16:50:00 Romel Gonzalez [facility] MR BRAIN WITHOUT IV 2022-12-15 16:06:00 MaciejjayRomel rosenthal [facility] POCT-GLUCOSE METER 2022-12-15 13:36:00 Alondra Rinaldi [facility] nter ECG 12-LEAD 2022-12-15 12:50:18 Romel Gonzalez [facility] ECG 12-LEAD 2022-12-15 12:50:18 Unknown, H[facility] ECG 12-LEAD 2022-12-15 12:50:18 Unknown, 7 [facility] ECG 12-LEAD 2022-12-15 12:43:55 Unknown, 7 [facility] ECG 12-LEAD 2022-12-15 12:43:55 Unknown, 7 [facility] PT/APTT 2022-12-15 05:31:00 Enriquefranciemacario Rinaldi [facility] nter PROTHROMBIN TIME/INR 2022-12-15 05:31:00 Enriquefranciemacario Rinaldi [facility] nter BASIC METABOLIC PANEL 2022-12-15 05:27:00 David De Jesus [facility] CBC W/PLT COUNT & AUTO 2022-12-15 05:27:00 David De Jesus [facility] HEMOGLOBIN A1C 2022-12-15 05:27:00 [facility] 2022-12-15 05:27:00 David De Jesus [facility] TSH/FREE T4 IF INDICATED 2022-12-15 05:27:00 David De Jesus [facility] VITAMIN B12 2022-12-15 05:27:00 David De Jesus [facility] CBC W/PLT COUNT & AUTO 2022-12-15 05:27:00 David De Jesus [facility] EKG-SCANNED 2022-12-15 00:00:00 Provider, Default [facility] Plan of Care Planned Activity Planned Date Details Comments Source Future Scheduled 2027-12-17 Lipid panel (procedure) [facility] Test 00:00:00 [code = 68897669] Medical Ce nter Future Scheduled 2027-12-17 Lipid panel (procedure) [facility] 00:00:00 [code = 55433446] Medical Ce nter Future Scheduled 2023-12-[address] [facility] Test 00:00:00 Counseling and Screening Med ical Center (12+) [code = Tobacco Cessation Counseling and Screening (12+)] Future Scheduled 2023-12-[address] [facility] Test 00:00:00 Counseling and Screening Med ical Center (12+) [code = Tobacco Cessation Counseling and Screening (12+)] Future Scheduled 2023-01-26 Influenza Vaccine (#1) [facility]00 [code = Influenza Vaccine Me dical Center (#1)] Future Scheduled 2023-01-26 Influenza Vaccine (#1) [facility] 00:00:00 [code = Influenza Vaccine Me dical Center (#1)] Future Scheduled 2022-05-[address] [facility] Test 00:00:00 (12+) [code = DEPRESSION Med ical Center SCREENING (12+)] Future Scheduled 2022-05-[address] [facility] Test 00:00:00 (12+) [code = DEPRESSION Med ical Center SCREENING (12+)] Future Scheduled 2009-09-17 SHINGLES VACCINES ([address] [facility] Test 00:00[facility]00 2) [facility] Future Scheduled 2009-09-17 SHINGLES VACCINES ([address] [facility] Test 00:00:00 2) [facility] 2)] Future Scheduled 1980-09-17 Screening for malignant [facility] Test 00:00:00 neoplasm of cervix Medical C enter (procedure) [code = 865737202] Future Scheduled 1980-09-17 Screening for malignant [facility] Test 00:00:00 neoplasm of cervix Medical C enter (procedure) [code = 256180890] Future Scheduled 1978-09-17 DTAP/TDAP/TD VACCINES ([address] [facility] Test 00:00:00 - Tdap) [code = Medical Cent er DTAP/TDAP/TD VACCINES (1 - Tdap)] Future Scheduled 1978-09-17 DTAP/TDAP/TD VACCINES ([address] [facility] Test 00:00:00 - Tdap) [code = Medical Cent er DTAP/TDAP/TD VACCINES (1 - Tdap)] Future Scheduled 1977-09-17 HEPATITIS C [facility]CRE[facility]ING [facility] 00:00:00 [code = HEPATITIS C Medical Center SCREENING] Future Scheduled 1977-09-17 HEPATITIS C [facility]CRE[facility]ING [facility] 00:00:00 [code = HEPATITIS C Medical Center SCREENING] Future Scheduled 1974-09-[address] [facility] 00:00:00 virus screening Medical Cent er (procedure) [code = 521654039] Future Scheduled 1974-09-[address] [facility] 00:00:00 virus screening Medical Cent er (procedure) [code = 490038348] Future Scheduled 1960-03-19 COVID-19 VACCINE (#1) [facility]:00[facility]00 [code = COVID-19 VACCINE Med ical Center (#1)] Future Scheduled 1960-03-19 COVID-19 VACCINE (#1) [facility] 00:00:00 [code = COVID-19 VACCINE Med ical Center (#1)] Future Scheduled 1959 Screening for malignant [facility] Test 00:00:00 neoplasm of breast Medical C enter (procedure) [code = 744629739] Future Scheduled 1960 CT Colonography (combo) [facility] Test 00:00:00 [code = CT Colonography [facility] (combo)] Future Scheduled 1959 Screening for malignant [facility] Test 00:00:00 neoplasm of colon Medical Ce nter (procedure) [code = 718453708] Future Scheduled 1959 Screening for malignant [facility] Test 00:00:00 neoplasm of colon Medical Ce nter (procedure) [code = 247217864] Future Scheduled 1959 Screening for malignant [facility] Test 00:00:00 neoplasm of colon Medical Ce nter (procedure) [code = 279786695] Future Scheduled 1959 Screening for malignant [facility] Test 00:00:00 neoplasm of colon Medical Ce nter (procedure) [code = 205143058] Future Scheduled 1960 Sigmoidoscopy [code = [facility] 00:[facility]:00 Sigmoidoscopy] Medical Cente r Future Scheduled 1959 Screening for malignant [facility] Test 00:00:00 neoplasm of breast Medical C enter (procedure) [code = 154582432] Future Scheduled 1959 CT Colonography (combo) [facility] Test 00:00:00 [code = CT Colonography [facility] (combo)] Future Scheduled 1959 Screening for malignant [facility] Test 00:00:00 neoplasm of colon Medical Ce nter (procedure) [code = 300244681] Future Scheduled 1959 Screening for malignant [facility] Test 00:00:00 neoplasm of colon Medical Ce nter (procedure) [code = 909039547] Future Scheduled 1959 Screening for malignant [facility] Test 00:00:00 neoplasm of colon Medical Ce nter (procedure) [code = 044030107] Future Scheduled 1959 Screening for malignant [facility] Test 00:00:00 neoplasm of colon Medical Ce nter (procedure) [code = 258765273] Future Scheduled 1960 Sigmoidoscopy [code = [facility] 00:[facility]:00 Sigmoidoscopy] Medical Cente r Encounters Start End Encounter Admission Attending Care Care Encounter Source Date/Time Date/Time Type Type Clinicians Facility Department ID 2022-12-28 Inpatient UR CIVUNIGUNTA [facility] [id number] [facility] 07:29:45 , CAL 2022-12-20 Inpatient ER MARINO, [facility] SLE [id number] [facility] 08:13:09 SUDHAKAR 2022-12-17 Inpatient ER VENKATASUBB [facility] SLE [id number] [facility] 07:02:47 JORDYN RODARTE 2022-12-15 Inpatient ER [facility] [id number] [facility] 17:19:22 JORDYN RODARTE 2022-12-15 [id number] [facility] 14:42:20 A [facility]INALDI [facility] 2022-12-15 Inpatient ER [facility] SLE [id number] [facility] 14:42:13 A NIMCO JOSE AJAREK 2022-12-15 Inpatient ER [facility] SLE [id number] [facility] 14:42:05 A RINALDI [facility] 2022-12-27 2022-12-28 Inpatient UR ANASTASIA, [facility] Neurology [id number] [facility] 15:44:00 16:00:00 [facility] 2022-12-27 2022-12-28 [facility] UR [facility], Yuli [facility] [id number] 15:44:00 16:00:00 Encounter Cal Encisof, [facility] 2022-12-27 2022-12-28 [facility] [id number] 15:44[facility]00 16:00:00 Encounter Cal Enciso, [facility] 2022-12-27 2022-12-27 Travel [facility] [id number] [facility] 00:00:00 [facility] 2022-12-27 2022-12-27 Travel [facility] [id number] [facility] 00:00:00 [facility] 2022-12-15 2022-12-22 Inpatient ER RJ, [facility] Neuro ICU [id number] SLE 04:07:00 11:37:00 MRINALINI 2022-12-15 2022-12-22 Hospital ER [facility] Jordyn Rinaldi [facility] [id number] [facility] 04:07:00 11:37:00 Encounter Martha Hernandez Mohammad I [facility] 2022-12-15 2022-12-22 [facility] Jordyn Rinaldi [facility] [id number] [facility] 04:07:00 11:37:00 Encounter Martha Hernandez Mohammad I Medical Julia De La Rosa [facility] 2022-12-21 2022-12-21 Travel [facility] [id number] [facility] 00:00:00 [facility] 2022-12-21 2022-12-21 Travel [facility] [id number] [facility] 00:00:00 [facility] 2022-12-15 2022-12-15 Orders [facility] [id number] 00:00:00 00:00:00 Only [facility] 2022-12-15 2022-12-15 Orders [facility] [id number] 00:00:00 00:00:00 Only [facility] 2018-12-27 2018-12-27 [facility] [id number] 12:30:00 23:59:00 Encounter Jose M Ely [id number] [place] [id number] [place] [id number] Results Test Description Test Time Test Comments Results Result Comments Source BLOOD CULTURE 2023-01-01 19:00:39 Test Item Value Reference Range Interpretation Comme nts CULTURE (BEAKER) (test code = 1095) No growth in 5 days BLOOD [id number] 19:00:39 Test Item Value Reference Range Interpretation Comments CULTURE (BEAKER) (test No growth in 5 days code = 1095) The specimen volume collected for this blood culture was below the optimum (10 mL per bottle or 20 mL total). Use of lower volumes may adversely affect recovery and/or detection times of some organisms.BARTONELLA HENSELAE ABS, REFLEX TO [id number] 08:13:12 Test Item Value Reference Range Interpretation Comments SCAN RESULT (test code = See scanned report. [id number]) MR BRAIN WITH & WITHOUT IV [id number] 09:20:59 [facility] CENTERName: ALLAN BLEVINS : 1960 Sex: FMRI Brain with and without contrastCLINICAL HISTORY: Unlisted Reason for ExamSeizuresTechnique: Multiplanar, multisequence MRI images of the brain obtainedwith and without IV contrast.Comparisons: December 20, 2022, 12/15/2022Findings:Right occipital cortical and minimal subcortical T2 FLAIR hyperintensity(images 13 through 18 of series 701) is reduced but not completelyresolved compared to immediate prior exami [facility]. Of note, overlyingscalp soft tissue swelling seen [...] left.IMPRESSION:Interval reduction in right occipital cortical/subcortical subtle [id number] hyperintensity likely representing resolving edema, nonspecificbut possibly resolving parenchymal contusion.Otherwise, examination is stablein appearance.Electronically Signed By: Mansoor Perrin12/28/2022 09:23 CDTWorkstation Name: [id number] METABOLIC [id number] 05:34:40 Test Item Value Reference Range Interpretation [...] eGF R is based on the CKD-EPI 2021 equation that d oes not use a race coefficientEsti mated GFR is not as accur ate as Creatinine Faby bland in predicting glom erular filtration rate . Estimated GFR is not appl icable for dialysis patien ts Senior Business Manager ID - MMCBC W/PLT COUNT & AUTO [id number] 05:12:45 Test Item Value Reference Range Interpretation [...] 0.00-1.00 PERCENT (BEAKER) (test code = 2801) Urinalysis w/Microscopic + Reflex to [id number] 18:23:02 Test Item Value Reference Range Interpretation Comments Color, UA (test code Light Yellow = 5778-6) Clarity, UA (test Clear code = 5767-9) Specific [place], UA 1.010 1.001-1.035 (test code = 5811-5) pH, UA (test code = 7.5 5.0-8.0 5803-2) Protein, UA (test Negative Negative code = 85534-1) Glucose, UA (test Negative Negative code = 365) Ketones, UA (test Negative Negative code = 2514-8) Bilirubin, UA (test Negative Negative code = 87818-0) Blood, UA (test code Negative Negative = 13972-3) Nitrite, UA (test Negative Negative code = 5802-4) Leukocytes, UA (test Trace Negative A code = 5799-2) Urobilinogen, UA 0.2 0.2-1.0 (test code = 76917-8) RBC, UA (test code = 1 See_Comment [Autom ated 20929-4) message] The system which generated this result transmit kirstin reference range : /HPF. The reference range was not used to interpret this result as normal/abnormal . WBC, UA (test code = 3 See_Comment [Autom ated 5821-4) message] The system which generated this result transmit kirstin reference range : /HPF. The reference range was not used to interpret this result as normal/abnormal . Bacteria, UA (test Rare code = 27527-3) Squam Epithel, UA See_Comment [Automate d (test code = 89910-4) messag e] The system which generated this result transmit kirstin reference range : /HPF. The reference range was not used to interpret this result as normal/abnormal . Specimen Source (test code = 2795) SHEREEN (test code = SHEREEN) Senior Business Manager ID - [auto]Senior Business Manager ID - tech Lab Interpretation Abnormal (test code = 03448-0) [facility] StanfordUrinal[facility] w/Microscopic + Reflex to Culture 2022-12-27 18:23:02 Test Item Value Reference Range Interpretation Comments Color, UA (test code Light Yellow = 5778-6) Clarity, UA (test Clear code = 5767-9) Specific [place], UA 1.010 1.001-1.035 (test code = 5811-5) pH, UA (test code = 7.5 5.0-8.0 5803-2) Protein, UA (test Negative Negative code = 35396-3) Glucose, UA (test Negative Negative code = 365) Ketones, UA (test Negative Negative code = 2514-8) Bilirubin, UA (test Negative Negative code = 58254-6) Blood, UA (test code Negative Negative = 62506-4) Nitrite, UA (test Negative Negative code = 5802-4) Leukocytes, UA (test Trace Negative A code = 5799-2) Urobilinogen, UA 0.2 0.2-1.0 (test code = 12145-4) RBC, UA (test code = 1 See_Comment [Autom ated 21610-0) message] The system which generated this result transmit kirstin reference range : /HPF. The reference range was not used to interpret this result as normal/abnormal . WBC, UA (test code = 3 See_Comment [Autom ated 5821-4) message] The system which generated this result transmit kirstin reference range : /HPF. The reference range was not used to interpret this result as normal/abnormal . Bacteria, UA (test Rare code = 49774-3) Squam Epithel, UA See_Comment [Automate d (test code = 66135-4) messag e] The system which generated this result transmit kirstin reference range : /HPF. The reference range was not used to interpret this result as normal/abnormal . Specimen Source (test code = 2795) SHEREEN (test code = SHEREEN) Senior Business Manager ID - [auto]Senior Business Manager ID - tech Lab Interpretation Abnormal (test code = 90689-3) [facility] StanfordURINALYSIS W/ REFLEX URINE [id number] 18:23:02 Test Item Value Reference Range Interpretation [...] = 516) SOURCE(BEAKER) (test code = 2795) Senior Business Manager ID - [auto]Senior Business Manager ID - techCOMPREHENSIVE METABOLIC [id number] 18:22:18 Test Item Value Reference Range Interpretation [...] not appl icable for dialysis patien ts Senior Business Manager ID - [id number] 18:22:18 Test Item Value Reference Range Interpretation Comments MAGNESIUM (BEAKER) (test code = 1.7 mg/dL 1.6-2.6 627) Senior Business Manager ID - [id number] 18:22:18 Test Item Value Reference Range Interpretation Comments PHOSPHORUS (BEAKER) (test code = 2.4 mg/dL 2.3-4.7 604) Senior Business Manager ID - ADMINPROTHROMBIN TIME/[id number] 18:12:00 Test Item Value Reference Range Interpretation Comments PROTIME (BEAKER) 14.1 seconds 11.9-14.2 (test code = 759) INR (BEAKER) (test 1.11 See_Comment [Automat ed message] code = 370) The system [employer] generated this result transmitted ref erence range: <=5.90. The reference range was not used to int erpret this result as normal/abnormal . RECOMMENDED COUMADIN/WARFARIN INR THERAPY RANGESSTANDARD DOSE: 2.0 - 3.0 Includes: PROPHYLAXIS for venous thrombosis, systemic embolization; TREATMENT for venous thrombosis and/or pulmonary embolus.HIGH RISK: Target INR is 2.5-3.5 for patients with mechanical heart valves.LACTIC ACID, [id number] 18:07:57 Test Item Value Reference Range Interpretation Comments LACTATE BLOOD VENOUS (2) (BEAKER) 1.35 mmol/L 0.50-2.00 (test code = 2872) Senior Business Manager ID - ADMINCBC W/PLT COUNT & AUTO [id number] 18:02:15 Test Item Value Reference Range Interpretation [...] 0.00-1.00 PERCENT (BEAKER) (test code = 2801) HSV 1/2 PCR, [id number] 11:15:29HSV, PCR12/22/2022 11:15 AM [facility]TCH[facility]2 PCR, [id number] 11:15:29HSV, PCR12/22/2022 11:15 AM CDTCH[facility] W/PLT COUNT & AUTO [id number] 06:30:49 Test Item Value Reference Range Interpretation [...] 0.00-1.00 PERCENT (BEAKER) (test code = 2801) [id number] 06:20:54 Test Item Value Reference Range Interpretation Comments MAGNESIUM (BEAKER) (test code = 1.4 mg/dL 1.6-2.6 L 627) Senior Business Manager ID - [id number] 06:20:54 Test Item Value Reference Range Interpretation Comments PHOSPHORUS (BEAKER) (test code = 3.2 mg/dL 2.3-4.7 604) Senior Business Manager ID - mmBASIC METABOLIC [id number] 06:20:53 Test Item Value Reference Range Interpretation [...] not appl icable for dialysis patien ts Senior Business Manager ID - mmVaricella zoster PCR, [id number] 02:13:37 Test Item Value Reference Interpretation Comments Range Source-Yousif CEREBROSPINAL dy Site FLUID (test code = 7722354) VZV NOT DETECTED REFERENCE RANGE : NOT DETECTED DNA,Qual. This test was d eveloped and PCR (test its analytical code = performancechar acteriDirect [employer]et [employer] 8593545) have been deter mined by [employer].It has not been cleared or appr kirill by FDA. This assay hasb een validated pursuant to the CLIA regulations and isused for clinical purpos es. SHEREEN (test Performing Lab code = *QDID [facility] SHEREEN) [facility] [address] [address] Nga Gilliam MD, PhD [facility] StanfordVaricella zoster PCR, gurpfktkbka2023-25-07 02:13:37 Test Item Value Reference Interpretation Comments Range Source-Yousif CEREBROSPINAL dy Site FLUID (test code = 6310642) VZV NOT DETECTED REFERENCE RANGE : NOT DETECTED DNA,Qual. This test was d eveloped and PCR (test its analytical code = performancechar acteristTransit App 3370283) have been deter mined by [employer].It has not been cleared or appr kirill by FDA. This assay hasb een validated pursuant to the CLIA regulations and isused for clinical purpos es. SHEREEN (test Performing Lab code = *QDID [facility] SHEREEN) [facility] [address] [address] Nga Gilliam MD, PhD [facility] StanfordWest Nile Virus, CSF, IgG and [id number] 20:01:35 Test Item Value Reference Range Interpretation Comments West Nile <0.90 REFERENCE RANGE : <0.90 Ab,Igm (test INTERPRETIVE CR ITERIA code = <0.90 Antibody not [id number]) detected 0.90 - 1.10 Equivocal >1.10 Antibody detect ed West Nile virus (WNV ) IgM is usually detecta blein CSF from WNV-in fected patients withencephaliti s or meningitis at t he time ofclinical presentation. B ecause IgM antibody do esnot readily cross t he blood-brain bar rier, IgMantibody in CSF strongly sugges ts acute centralnervous system infection. WNV antibody resultsfrom CSF should be in interpret ed with caution.Possibl e complicating fa ctors include low lev elsof antibody found in CSF, passive transfe r ofantibodies fr om blood, and contamination v iabloody spinal taps. An tibodies induced by otherflavivirus infections (e.g . Dengue virus, St.Bran encephalitis vi eula) may showcross-react ivity with WNV. SHEREEN (test Performing Lab code = SHEREEN) *QDID [employer] [place] [address] [place] [address] Nga Gilliam MD, PhD [facility] StanfordWest Nile Virus, CSF, IgG and [id number] 20:01:35 Test Item Value Reference Range Interpretation Comments West Nile <0.90 REFERENCE RANGE : <0.90 Ab,Igm (test INTERPRETIVE CR ITERIA code = <0.90 Antibody not 7043782) detected 0.90 - 1.10 Equivocal >1.10 Antibody detect ed West Nile virus (WNV ) IgM is usually detecta blein CSF from WNV-in fected patients withencephaliti s or meningitis at t he time ofclinical presentation. B ecause IgM antibody do esnot readily cross t he blood-brain bar rier, IgMantibody in CSF strongly sugges ts acute centralnervous system infection. WNV antibody resultsfrom CSF should be in interpret ed with caution.Possibl e complicating fa ctors include low lev elsof antibody found in CSF, passive transfe r ofantibodies fr om blood, and contamination v iabloody spinal taps. An tibodies induced by otherflavivirus infections (e.g . Dengue virus, St.Bran encephalitis vi eula) may showcross-react ivity with WNV. SHEREEN (test Performing Lab code = SHEREEN) *QDID [employer] [address] [place] [address] Nga Gilliam MD, PhD [facility] StanfordMAGNESIUM2023-07-27 06:46:55 Test Item Value Reference Range Interpretation Comments MAGNESIUM (BEAKER) (test code = 1.3 mg/dL 1.6-2.6 L 627) Senior Business Manager ID - [id number] 06:46:55 Test Item Value Reference Range Interpretation Comments PHOSPHORUS (BEAKER) (test code = 4.6 mg/dL 2.3-4.7 604) Senior Business Manager ID - ADMINBASIC METABOLIC [id number] 06:46:54 Test Item Value Reference Range Interpretation [...] eGF R is based on the CKD-EPI 1 equation that d oes not use a race coefficientEsti mated GFR is not as accur ate as Creatinine Faby bland in predicting glom erular filtration rate . Estimated GFR is not appl icable for dialysis patien ts Senior Business Manager ID - ADMINCBC W/PLT COUNT & AUTO [id number] 06:06:57 Test Item Value Reference Range Interpretation [...] 2801) MR BRAIN WITH & WITHOUT IV [id number] 22:54:48 [facility] 1960 Sex: FMR BRAIN WITH & WITHOUT IV CONTRASTINDICATION: Meningitis/INTELLIGENCE SPECIALIST infection suspectedTechnique: MRI of thebrain utilizing axial [...] Signed By: Kala Fu12/20/2022 22:56 CDTWorkstation Name: [id number] CULTURE 2022-12-20 21:00:19 Test Item Value Reference Range Interpretation Comments CULTURE (BEAKER) (test No growth in 5 days code = 1095) BLOOD [id number] 21:00:18 Test Item Value Reference Range Interpretation [...] not appl icable for dialysis patien ts Senior Business Manager ID - [id number] 06:34:08 Test Item Value Reference Range Interpretation Comments MAGNESIUM (BEAKER) (test code = 1.3 mg/dL 1.6-2.6 L 627) Senior Business Manager ID - [id number] 06:34:08 Test Item Value Reference Range Interpretation Comments PHOSPHORUS (BEAKER) (test code = 4.0 mg/dL 2.3-4.7 604) Senior Business Manager ID - ADMINCBC W/PLT COUNT & AUTO [id number] 06:07:55 Test Item Value Reference Range Interpretation [...] 0.00-1.00 PERCENT (BEAKER) (test code = 2801) [id number] 19:03:03 Test Item Value Reference Range Interpretation Comments POTASSIUM (BEAKER) (test code = 3.5 meq/L 3.5-5.1 379) Senior Business Manager ID - DBCSF Culture + Gram [id number] 12:08:59 Test Item Value Reference Range Interpretation Comments Result (test code = 6463-4) No growth Gram Stain Result (test No organisms seen code = 1123) [facility] StanfordCSF Culture + Gram [id number] 12:08:59 Test Item Value Reference Range Interpretation Comments Result (test code = 6463-4) No growth Gram Stain Result (test No organisms seen code = 1123) [facility] StanfordCSF CULTURE + GRAM [id number] 12:08:59 Test Item Value Reference Range Interpretation Comments CULTURE (BEAKER) (test code No growth = 1095) GRAM STAIN RESULT (BEAKER) 1+ WBCs (test code = 1123) GRAM STAIN RESULT (BEAKER) No organisms seen (test code = 06053) BASIC METABOLIC [id number] 06:29:11 Test Item Value Reference Range Interpretation [...] not appl icable for dialysis patien ts Senior Business Manager ID - RJDDVVQHRAONJCH4364-64-89 05:41:37 Test Item Value Reference Range Interpretation Comments PHOSPHORUS (BEAKER) (test code = 2.4 mg/dL 2.3-4.7 604) Senior Business Manager ID - MBLLJMXRNCPUZF2267-59-23 05:41:36 Test Item Value Reference Range Interpretation Comments MAGNESIUM (BEAKER) (test code = 1.8 mg/dL 1.6-2.6 627) Senior Business Manager ID - ADMINCBC W/PLT COUNT & AUTO [id number] 05:12:32 Test Item Value Reference Range Interpretation [...] PERCENT (BEAKER) (test code = 2801) OSMOLALITY, [id number] 22:19:45 Test Item Value Reference Range Interpretation Comments OSMOLALITY, SERUM (BEAKER) (test 260 mOsm/kg 275-295 L code = 615) Osmolality, [id number] 20:51:14 Test Item Value Reference Range Interpretation Comments Osmolality, Ur (test code 372 See_Comment [ Automated message] = 2695-5) The system [employer] generated this result transmitted ref erence range: 50-1,200 mOsm/kg mOsm/kg . The reference range was not used to int erpret this result as normal/abnormal . Lab Interpretation (test Normal code = 06452-9) [facility] StanfordOsmolality, [id number] 20:51:14 Test Item Value Reference Range Interpretation Comments Osmolality, Ur (test code 372 See_Comment [ Automated message] = 2695-5) The system [employer] generated this result transmitted ref erence range: 50-1,200 mOsm/kg mOsm/kg . The reference range was not used to int erpret this result as normal/abnormal . Lab Interpretation (test Normal code = 32560-3) [facility] StanfordOSMOLALITY, [id number] 20:51:14 Test Item Value Reference Range Interpretation Comments OSMOLALITY URINE 372 mOsm/kg See_Comment [Automated message] (BEAKER) (test code = The stem which 614) generated this result transmitted ref erence range: 50-1,200 mOsm/kg. The reference range was not used to int erpret this result as normal/abnormal . Sodium, random [id number] 20:50:36 Test Item Value Reference Range Interpretation Comments Sodium Urine (test 131 meq/L code = 2955-3) SHEREEN (test code = Reference Range: No SHEREEN) NormalsOperator ID - ADMIN [facility] [id number] 20:50:36 Test Item Value Reference Range Interpretation Comments Sodium Urine (test 131 meq/L code = 2955-3) SHEREEN (test code = Reference Range: No SHEREEN) NormalsOperator ID - ADMIN [facility] CenterODIUM, RANDOM [id number] 20:50:36 Test Item Value Reference Range Interpretation Comments SODIUM URINE (BEAKER) (test code = 131 meq/L 243) Reference Range: No NormalsOperator ID - [id number] 14:28:02 Test Item Value Reference Range Interpretation Comments PHOSPHORUS (BEAKER) (test code = 2.2 mg/dL 2.3-4.7 L 604) Senior Business Manager ID - [id number] 14:28:02 Test Item Value Reference Range Interpretation Comments POTASSIUM (BEAKER) (test code = 3.0 meq/L 3.5-5.1 L 379) Senior Business Manager ID - [id number] 14:28:01 Test Item Value Reference Range Interpretation Comments MAGNESIUM (BEAKER) (test code = 2.3 mg/dL 1.6-2.6 627) Senior Business Manager ID - ADMINVARICELLA ZOSTER ANTIBODY, [id number] 14:01:51 Test Item Value Reference Range Interpretation Comments VARICELLA ZOSTER IGG (AL) (BEAKER) 4.2 (test code = 3197) VARICELLA ZOSTER RESULT INTERPRETATIONS: <=0.8 Al Nonreactive: Presumed non- immune to VZV 0.9-1.0Al Equivocal >=1.1 Al Reactive: Presumed immune to VZV [id number] 07:39:09 Test Item Value Reference Range Interpretation Comments PHOSPHORUS (BEAKER) (test code = 1.1 mg/dL 2.3-4.7 LL 604) Senior Business Manager ID - ADMINBASIC METABOLIC [id number] 07:35:44 Test Item Value Reference Range Interpretation [...] not appl icable for dialysis patien ts Senior Business Manager ID - [id number] 07:19:04 Test Item Value Reference Range Interpretation Comments MAGNESIUM (BEAKER) (test code = 1.7 mg/dL 1.6-2.6 627) Senior Business Manager ID - ADMINCBC W/PLT COUNT & AUTO [id number] 06:31:09 Test Item Value Reference Range Interpretation [...] 0.00-1.00 PERCENT (BEAKER) (test code = 2801) [id number] 05:20:33 Test Item Value Reference Range Interpretation Comments FERRITIN (BEAKER) (test code = 98.56 ng/mL 5.00-275.00 361) Senior Business Manager ID - BENIGNO NI, TIBC, % SAT. (WITHOUT FERRITIN)2022-12-18 04:59:37 Test Item Value Reference Range Interpretation Comments IRON (BEAKER) (test code = 547) 45.0 ug/dL 40.0-160.0 TOTAL IRON BINDING CAPACITY 198 ug/dL 250-450 L (BEAKER) (test code = 769) IRON % SATURATION (2) (BEAKER) 23 % 20-55 (test code = 2590) Senior Business Manager ID - BENIGNO [id number] 16:42:38 Test Item Value Reference Range Interpretation Comments POTASSIUM (BEAKER) 3.0 meq/L 3.5-5.1 L Specimen slightly (test code = 379) hemolyzed Senior Business Manager ID - MMCSF cell count with yuisfopdmkyn4045-54-74 14:36:58 Test Item Value Reference Range Interpretation Comments Appearance (test code = Clear Clear 79549-1) Color (test code = Colorless Colorless 92951-1) RBCs (test code = 30 See_Comment H [Automate d message] 792-2) The system [employer] generated this result transmit kirstin reference range : 0 - 5 /cu mm. The reference range was not used to interpret this result as normal/abnormal . RBCs Fresh? (test code 100% Fresh = 83679-2) TNC Count (test code = 52 See_Comment H [Aut omated message] 806-0) The system [employer] generated this result transmit kirstin reference range : <=5 /cu mm. The reference range was not used to interpret this result as normal/abnormal . WBCs Diff'd (test code 100 = 57079-8) Lining Cells/Other 0 Diff'd (test code = 1589) Adjusted WBC Count 52 See_Comment [Automat ed message] (test code = 24063-3) The sy stem which generated this result transmit kirstin reference range : /cu mm. The referen ce range was not u sed to interpret th is result as normal/abnormal . Adjusted lining 0 See_Comment [Automated message] cells/Others (test code The system which = 52659-3) generated this result transmit kirstin reference range : /cu mm. The referen ce range was not u sed to interpret th is result as normal/abnormal . % Neutros (test code = 92 % 0-5 H 77057-2) % Lymphs (test code = 2 % 40-80 L 68273-2) % Monos (test code = 6 % 15-45 L 439) % Eos (test code = 360) 0 % See_Comment [Au tomated message] The system [employer] generated this result transmit kirstin reference range : <=0. The refere nce range was not u sed to interpret th is result as normal/abnormal . % Baso (test code = 0 % See_Comment [Automa kirstin message] 440) The system [employer] generated this result transmit kirstin reference range : <=0. The refere nce range was not u sed to interpret th is result as normal/abnormal . Tube Number (test code EDTA Tube = 2677) Lab Interpretation Abnormal (test code = 90449-3) [facility] cell count with weylafibuhlt7070-73-98 14:36:58 Test Item Value Reference Range Interpretation Comments Appearance (test code = Clear Clear 95872-7) Color (test code = Colorless Colorless 42598-5) RBCs (test code = 30 See_Comment H [Automate d message] 792-2) The system [employer] generated this result transmit kirstin reference range : 0 - 5 /cu mm. The reference range was not used to interpret this result as normal/abnormal . RBCs Fresh? (test code 100% Fresh = 90552-8) TNC Count (test code = 52 See_Comment H [Aut omated message] 806-0) The system [employer] generated this result transmit kirstin reference range : <=5 /cu mm. The reference range was not used to interpret this result as normal/abnormal . WBCs Diff'd (test code 100 = 37943-5) Lining Cells/Other 0 Diff'd (test code = 1589) Adjusted WBC Count 52 See_Comment [Automat ed message] (test code = 86466-7) The sy stem which generated this result transmit kirstin reference range : /cu mm. The referen ce range was not u sed to interpret th is result as normal/abnormal . Adjusted lining 0 See_Comment [Automated message] cells/Others (test code The system which = 60743-5) generated this result transmit kirstin reference range : /cu mm. The referen ce range was not u sed to interpret th is result as normal/abnormal . % Neutros (test code = 92 % 0-5 H 48464-6) % Lymphs (test code = 2 % 40-80 L 27130-6) % Monos (test code = 6 % 15-45 L 439) % Eos (test code = 360) 0 % See_Comment [Au tomated message] The system [employer] generated this result transmit kirstin reference range : <=0. The refere nce range was not u sed to interpret th is result as normal/abnormal . % Baso (test code = 0 % See_Comment [Automa kirstin message] 440) The system [employer] generated this result transmit kirstin reference range : <=0. The refere nce range was not u sed to interpret th is result as normal/abnormal . Tube Number (test code EDTA Tube = 2677) Lab Interpretation Abnormal (test code = 80096-6) [facility] W/[id number] 14:36:58 Test Item Value Reference Range Interpretation [...] Tube code = 2678) CSF CELL COUNT W/[id number] 14:36:21 Test Item Value Reference Range Interpretation [...] (BEAKER) (test EDTA Tube code = 2678) Glucose, [id number] 14:05:04 Test Item Value Reference Range Interpretation Comments Glucose, CSF (test code = 70 mg/dL 40-70 2342-4) SHEREEN (test code = SHEREEN) Senior Business Manager ID - ADMIN Lab Interpretation (test Normal code = 31153-0) [facility] StanfordProtein, [id number] 14:05:04 Test Item Value Reference Range Interpretation Comments Protein, CSF (test code = 54 mg/dL 15-45 H 2880-3) SHEREEN (test code = SHEREEN) Senior Business Manager ID - ADMIN Lab Interpretation (test Abnormal code = 93342-4) [facility] StanfordGlucose, [id number] 14:05:04 Test Item Value Reference Range Interpretation Comments Glucose, CSF (test code = 70 mg/dL 40-70 2342-4) SHEREEN (test code = SHEREEN) Senior Business Manager ID - ADMIN Lab Interpretation (test Normal code = 39166-5) [facility], [id number] 14:05:04 Test Item Value Reference Range Interpretation Comments Protein, CSF (test code = 54 mg/dL 15-45 H 2880-3) SHEREEN (test code = SHEREEN) Senior Business Manager ID - ADMIN Lab Interpretation (test Abnormal code = 09153-3) [facility] StanfordGLUCOSE, [id number] 14:05:04 Test Item Value Reference Range Interpretation Comments GLUCOSE CSF (BEAKER) (test code = 70 mg/dL 40-70 406) Senior Business Manager ID - ADMINPROTEIN, [id number] 14:05:04 Test Item Value Reference Range Interpretation Comments PROTEIN CSF (BEAKER) (test code = 54 mg/dL 15-45 H 378) Senior Business Manager ID - ADMINMENINGITIS/ENCEPHALITIS [id number] 13:20:47 Test Item Value Reference Range Interpretation Comments E COLI K1 (test code = Not detected Not detected 27846-6) HAEMOPHILUS INFLUENZAE Not detected Not detected (test code = 72838-5) LISTERIA MONOCYTOGENES Not detected Not detected (test code = 92785-4) NEISSERIA MENINGITIDIS Not detected Not detected (test code = 50977-9) STREPTOCOCCUS Not detected Not detected AGALACTIAE (test code = 18300-6) STREPTOCOCCUS Not detected Not detected PNEUMONIAE (test code = 36894-6) Cytomegalovirus (CMV) Not detected Not detected (test code = 33193-7) ENTEROVIRUS (test code Not detected Not detected = 61365-4) Human herpesvirus 6 Not detected Not detected (HHV-6) (test code = 64365-7) Herpes simplex virus Not detected Not detected 1(HSV-1) (test code = 45202-0) HERPES SIMPLEX VIRUS Not detected Not detected 2(HSV-2) (test code = 45176-9) Human parechovirus Not detected Not detected (test code = 18621-6) Varicella-zoster virus Not detected Not detected (VZV) (test code = 22512-0) Cryptococcus Not detected Not detected neoformans/gattii (test code = 25610-0) SHEREEN (test code = SHEREEN) The performance of this test has not [...] required. This sample was tested at the [facility] Molecular Diagnostics Laboratory using the UrlistArray Meningitis Encephalitis Panel. It is FDA cleared and has been verified and approved by the [facility] Molecular Diagnostics Laboratory for clinical use. This laboratory is CLIA-certified and [employer] [place] (CAP)-accredited to perform high complexity testing. Lab Interpretation Normal (test code = 35906-8) [facility] StanfordMENINGITIS/ENCEPHALITIS [id number] 13:20:47 Test Item Value Reference Range Interpretation Comments E COLI K1 (test code = Not detected Not detected 97737-1) HAEMOPHILUS INFLUENZAE Not detected Not detected (test code = 62114-0) LISTERIA MONOCYTOGENES Not detected Not detected (test code = 03282-5) NEISSERIA MENINGITIDIS Not detected Not detected (test code = 20932-9) STREPTOCOCCUS Not detected Not detected AGALACTIAE (test code = 52174-8) STREPTOCOCCUS Not detected Not detected PNEUMONIAE (test code = 90225-6) Cytomegalovirus (CMV) Not detected Not detected (test code = 99023-1) ENTEROVIRUS (test code Not detected Not detected = 23273-3) Human herpesvirus 6 Not detected Not detected (HHV-6) (test code = 54177-6) Herpes simplex virus Not detected Not detected 1(HSV-1) (test code = 83644-1) HERPES SIMPLEX VIRUS Not detected Not detected 2(HSV-2) (test code = 57372-1) Human parechovirus Not detected Not detected (test code = 97476-6) Varicella-zoster virus Not detected Not detected (VZV) (test code = 63525-3) Cryptococcus Not detected Not detected neoformans/gattii (test code = 43717-7) SHEREEN (test code = SHEREEN) The performance of this test has not [...] required. This sample was tested at the [facility] Molecular Diagnostics Laboratory using the UrlistArray Meningitis Encephalitis Panel. It is FDA cleared and has been verified and approved by the [facility] Molecular Diagnostics Laboratory for clinical use. This laboratory is CLIA-certified and [employer] [place] [employer] (CAP)-accredited to perform high complexity testing. Lab Interpretation Normal (test code = 38648-6) [facility] StanfordMENINGITIS/ENCEPHALITIS [id number] 13:20:47 Test Item Value Reference Range Interpretation Comments ESCHERICHIA COLI K1 (test code = Not detected Not detected 20160226) HAEMOPHILUS INFLUENZAE (test Not detected Not detected code = 2955221) LISTERIA MONOCYTOGENES (test Not detected Not detected code = 0559029) NEISSERIA MENINGITIDIS (test Not detected Not detected code = 7540219) STREPTOCOCCUS AGALACTIAE (test Not detected Not detected code = 5735413) STREPTOCOCCUS PNEUMONIAE (test Not detected Not detected code = 4702136) CYTOMEGALOVIRUS (CMV) (test code Not detected Not detected = 20160303) ENTEROVIRUS (test code = Not detected Not detected 0810322) HUMAN HERPESVIRUS 6 (HHV-6) Not detected Not detected (test code = 6055006) HERPES SIMPLEX VIRUS 1(HSV-1) Not detected Not detected (test code = 4655409) HERPES SIMPLEX VIRUS 2(HSV-2) Not detected Not detected (test code = 6530785) HUMAN PARECHOVIRUS (test code = Not detected Not detected 4609275) VARICELLA-ZOSTER VIRUS (VZV) Not detected Not detected (test code = 7457902) CRYPTOCOCCUS NEOFORMANS/GATTII Not detected Not detected (test code = 3449960) The performance of this test has not [...] required. This sample was tested at the [facility] Molecular Diagnostics Laboratory using the [employer] FilmArray MeningitisEncephalitis Panel. It is FDA cleared and has been verified and approved by the [facility] Molecular Diagnostics Laboratory for clinical use. This laboratory is CLIA-certified and [employer] [place] [employer] (CAP)-accredited to perform high complexity testing.POC-Glucose meter 2022-12-17 10:41:49 Test Item Value Reference Range Interpretation Comments POC-Glucose Meter (test 138 mg/dL 70-110 H : TE STED AT [facility] code = 1538) [address] [place] [address], [facility] 30: Senior Business Manager/Techni june ID = [id number] for To, Sandra Lab Interpretation (test Abnormal code = 70777-3) [facility] StanfordPOC-Glucose [id number] 10:41:49 Test Item Value Reference Range Interpretation Comments POC-Glucose Meter (test 138 mg/dL 70-110 H : TE STED AT [facility] code = 1538) [address] [place] [address], 770 30: Senior Business Manager/Techni june ID = [id number] for To, Sandra Lab Interpretation (test Abnormal code = 24466-3) [facility]-GLUCOSE [id number] 10:41:49 Test Item Value Reference Range Interpretation Comments POC-GLUCOSE METER 138 mg/dL 70-110 H : TESTED A T [facility] 6720 (BEAKER) (test code = [place], 1538) [address]: Senior Business Manager/Techni june ID = [id number] for Sandra Messina BASIC METABOLIC [id number] 04:19:13 Test Item Value Reference Range Interpretation [...] not appl icable for dialysis patien ts Senior Business Manager ID - MMVANCOMYCIN LEVEL, [id number] 04:16:30 Test Item Value Reference Range Interpretation Comments VANCOMYCIN TROUGH (BEAKER) (test 6.6 ug/mL 10.0-20.0 L code = 522) Senior Business Manager ID - [id number] 04:14:47 Test Item Value Reference Range Interpretation Comments PHOSPHORUS (BEAKER) (test code = 1.7 mg/dL 2.3-4.7 L 604) Senior Business Manager ID - [id number] 04:14:46 Test Item Value Reference Range Interpretation Comments MAGNESIUM (BEAKER) (test code = 2.3 mg/dL 1.6-2.6 627) Senior Business Manager ID - MMCBC W/PLT COUNT & AUTO [id number] 04:04:43 Test Item Value Reference Range Interpretation [...] = 2801) CBC W/PLT COUNT & AUTO [id number] 05:06:00 Test Item Value Reference Range Interpretation [...] PERCENT (BEAKER) (test code = 2801) LIPID [id number] 05:02:07 Test Item Value Reference Range Interpretation [...] Borderline 130-159 High 160-189 Very High >=190 Senior Business Manager ID - MARCOBASIC METABOLIC [id number] 05:02:06 Test Item Value Reference Range Interpretation [...] not appl icable for dialysis patien ts Senior Business Manager ID - [id number] 05:02:06 Test Item Value Reference Range Interpretation Comments MAGNESIUM (BEAKER) (test code = 1.8 mg/dL 1.6-2.6 627) Senior Business Manager ID - [id number] 05:02:06 Test Item Value Reference Range Interpretation Comments PHOSPHORUS (BEAKER) (test code = 2.2 mg/dL 2.3-4.7 L 604) Senior Business Manager ID - MARCOXR CHEST 1 VIEW PORTABLE / [id number] 21:24:26 [facility] : 1960 Sex: FHistory: fever.Comparison: None.Findings:A single view of the chest is submitted.The cardiomediastinal contours are unremarkable. There is no focal consolidation, pneumothorax, large pleural effusion orevidence of overt pulmonary edema. There is no acute bony abnormality.Surgical clips overlie the right upper quadrant.Electronically Signed By: Vincent Fernandes12/15/2022 21:26 CDTWorkstation Name: [id number] ACID, [id number] 20:10:21 Test Item Value Reference Range Interpretation Comments LACTATE BLOOD VENOUS 1.31 mmol/L 0.50-2.00 Specime n slightly (2) (BEAKER) (test hemolyzed code = 2872) Senior Business Manager ID - BSUrinalysis w/Vigcgzptkgq6517-68-52 20:02:35 Test Item Value Reference Range Interpretation Comments Color, UA (test code Light Yellow = 5778-6) Clarity, UA (test Clear code = 5767-9) Specific [place], UA 1.014 1.001-1.035 (test code = 5811-5) pH, UA (test code = 7.0 5.0-8.0 5803-2) Protein, UA (test 10 mg/dL Negative A code = 50261-8) Glucose, UA (test Negative Negative code = 365) Ketones, UA (test Trace Negative A code = 2514-8) Bilirubin, UA (test Negative Negative code = 37099-0) Blood, UA (test code Small Negative A = 02040-8) Nitrite, UA (test Negative Negative code = 5802-4) Leukocytes, UA (test Negative Negative code = 5799-2) Urobilinogen, UA 0.2 0.2-1.0 (test code = 79528-3) RBC, UA (test code = 6 See_Comment [Autom ated 37978-6) message] The system which generated this result transmit kirstin reference range : /HPF. The reference range was not used to interpret this result as normal/abnormal . WBC, UA (test code = 1 See_Comment [Autom ated 5821-4) message] The system which generated this result transmit kirstin reference range : /HPF. The reference range was not used to interpret this result as normal/abnormal . Squam Epithel, UA See_Comment [Automate d (test code = 30644-3) messag e] The system which generated this result transmit kirstin reference range : /HPF. The reference range was not used to interpret this result as normal/abnormal . Specimen Source (test Urine, Voided code = 2795) SHEREEN (test code = SHEREEN) Senior Business Manager ID - [auto]Senior Business Manager ID - tech Lab Interpretation Abnormal (test code = 74779-7) [facility] Stanford[facility]inal[facility] w/Udwghqrhzyx9661-12-70 20:02:35 Test Item Value Reference Range Interpretation Comments Color, UA (test code Light Yellow = 5778-6) Clarity, UA (test Clear code = 5767-9) Specific [place], UA 1.014 1.001-1.035 (test code = 5811-5) pH, UA (test code = 7.0 5.0-8.0 5803-2) Protein, UA (test 10 mg/dL Negative A code = 76674-3) Glucose, UA (test Negative Negative code = 365) Ketones, UA (test Trace Negative A code = 2514-8) Bilirubin, UA (test Negative Negative code = 98635-6) Blood, UA (test code Small Negative A = 44458-9) Nitrite, UA (test Negative Negative code = 5802-4) Leukocytes, UA (test Negative Negative code = 5799-2) Urobilinogen, UA 0.2 0.2-1.0 (test code = 57028-2) RBC, UA (test code = 6 See_Comment [Autom ated 29718-4) message] The system which generated this result transmit kirstin reference range : /HPF. The reference range was not used to interpret this result as normal/abnormal . WBC, UA (test code = 1 See_Comment [Autom ated 5821-4) message] The system which generated this result transmit kirstin reference range : /HPF. The reference range was not used to interpret this result as normal/abnormal . Squam Epithel, UA See_Comment [Automate d (test code = 44381-9) messag e] The system which generated this result transmit kirstin reference range : /HPF. The reference range was not used to interpret this result as normal/abnormal . Specimen Source (test Urine, Voided code = 2795) SHEREEN (test code = SHEREEN) Senior Business Manager ID - [auto]Senior Business Manager ID - tech Lab Interpretation Abnormal (test code = 84435-5) [facility] W/ [id number] 20:02:35 Test Item Value Reference Range Interpretation [...] 516) SOURCE(BEAKER) (test code = Urine, Voided 2795) Senior Business Manager ID - [auto]Senior Business Manager ID - exypCSEKLRHMCXFOJ1020-47-74 18:50:12 Test Item Value Reference Range Interpretation Comments PROCALCITONIN (BEAKER) (test code = < ng/mL <0.05 3036) SEPSIS RISK (ng/mL)Low: 0.05-0.50Intermediate: 0.51-2.00High: >=2.01 COMPREHENSIVE METABOLIC [id number] 18:26:29 Test Item Value Reference Range Interpretation [...] high >=90 G2 Mildly decreased 60-89 G3a Mild ly to moderately 45-5 9 G3b Moderately to s everely 30-44 G4 Severl y decreased 15-29 G5 Kidney failure <15Reported eGF R is based on the CKD-EPI 2021 equation that d oes not use a race coefficientEsti mated GFR is not as accur ate as Creatinine Faby bland in predicting glom erular filtration rate . Estimated GFR is not appl icable for dialysis patien ts Senior Business Manager ID - [id number] 18:26:28 Test Item Value Reference Range Interpretation Comments MAGNESIUM (BEAKER) 1.3 mg/dL 1.6-2.6 L Specimen slightly (test code = 627) hemolyzed Senior Business Manager ID - [id number] 18:26:28 Test Item Value Reference Range Interpretation Comments PHOSPHORUS (BEAKER) 3.0 mg/dL 2.3-4.7 Specimen slightly (test code = 604) hemolyzed Senior Business Manager ID - BSCBC W/PLT COUNT & AUTO [id number] 18:02:00 Test Item Value Reference Range Interpretation [...] code = 2801) MRA HEAD WITHOUT IV [id number] 17:16:27 [facility] : 1960 Sex: FMRA HeadCLINICAL HISTORY: Stroke, follow upTECHNIQUE: MRA of the head utilizing 3-D phlj-ue-ztuffs technique with3-D reconstructions.COMPARISON: NoneFINDINGS:There is no evidence of intracranial aneurysm, critical stenosis, orlarge vessel occlusion. IMPRESSION:No large vessel occlusion.MRA NeckCLINICAL HISTORY: Stroke, follow upTECHNIQUE: MRA of the neck utilizing 2-D and 3-D ztso-ia-hudzmnlmdznmmet with 3-D reconstructions.COMPARISON: NoneFINDINGS:The internal carotid arteries in the neck are patent including theirbifurcations. There is antegrade flow in the vertebral arteries in the neck.IMPRESSION:No e vidence of hemodynamically significant stenosis in the cervicalcarotid or vertebral arteries by NASCET criteria.Electronically Signed By: Naman Chavez12/15/2022 17:18 CDTWorkstation Name: [id number] NECK WITHOUT IV CONTRAST 2022-12-15 17:16:27 [facility] : 1960 Sex: FMRA HeadCLINICAL HISTORY: Stroke, follow upTECHNIQUE: MRA of the head utilizing 3-D suuq-kd-hfefyn technique with3-D reconstructions.COMPARISON: NoneFINDINGS:There is no evidence of intracranial aneurysm, critical stenosis, orlarge vessel occlusion. IMPRESSION:No large vessel occlusion.MRA NeckCLINICAL HISTORY: Stroke, follow upTECHNIQUE: MRA of the neck utilizing 2-D and 3-D nwww-lt-rfrqifsunpjuvre with 3-D reconstructions.COMPARISON: NoneFINDINGS:The internal carotid arteries in the neck are patent including theirbifurcations. There is antegrade flow in the vertebral arteries in the neck.IMPRESSION:No e vidence of hemodynamically significant stenosis in the cervicalcarotid or vertebral arteries by NASCET criteria.Electronically Signed By: Naman Chavez12/15/2022 17:18 CDTWorkstation Name: [id number] BRAIN WITHOUT IV CONTRAST 2022-12-15 17:13:11 [facility] 1960 Sex: FMRI Brain [...] Signed By: Naman Chavez12/15/2022 17:15 CDTWorkstation Name: [id number] 15:59:52 Test Item Value Reference Range Interpretation Comments RPR SCREEN (DFMSim) (test code = Nonreactive Nonreactive 420) POCT-GLUCOSE [id number] 13:48:01 Test Item Value Reference Range Interpretation Comments POC-GLUCOSE METER 165 mg/dL 70-110 H : [facility] (DFMSim) (test code [facility], = 1538) [address]: Senior Business Manager/Techni june ID = [id number] for Shelley Aquino HEMOGLOBIN [id number] 10:25:52 Test Item Value Reference Range Interpretation Comments HEMOGLOBIN A1C 5.1 % See_Comment [Automated m essage] ELECTROPHORESIS (DFMSim) The system which (test code = 3811) generated this result transmitted ref erence range: <=5.6%. The reference range was not used to int erpret this result as normal/abnormal . "The A1c is measured using a NGSP-certified method. HbA1c value equal to or greater than 6.5% as thediagnosis cutoff for diabetes. An HbA1c value of 5.7- 6.4% indicates increased risk for diabetes (prediabetes)."Senior Business Manager ID - ADM TSH/FREE T4 IF [id number] 06:34:55 Test Item Value Reference Range Interpretation Comments THYROID STIMULATING HORMONE 1.898 uIU/mL 0.350-4.940 (DFMSim) (test code = 772) Senior Business Manager ID - MMVITAMIN [id number] 06:34:54 Test Item Value Reference Range Interpretation Comments VITAMIN B12 (DFMSim) (test code = 822 pg/mL 213-816 H 774) Senior Business Manager ID - MMBASIC METABOLIC [id number] 06:12:21 Test Item Value Reference Range Interpretation Comments SODIUM (FOOTBEAT & AVEX HealthAKER) 127 meq/L 136-145 L (test code = [...] not appl icable for dialysis patien ts Senior Business Manager ID - MMCBC W/PLT COUNT & AUTO [id number] 06:05:08 Test Item Value Reference Range Interpretation [...] 0.00-1.00 PERCENT (BEAKER) (test code = 2801) PT/[id number] 05:55:33 Test Item Value Reference Range Interpretation [...] 2.5-3.5 for patients with mechanical heart valves.PROTHROMBIN TIME/[id number] 05:54:57 Test Item Value Reference Range Interpretation Comments PROTIME (BEAKER) (test code = 14.1 seconds 11.9-14.2 759) INR (ROBERTO) (test code = 370) 1.16 <=5.90 RECOMMENDED COUMADIN/WARFARIN INR THERAPY RANGESSTANDARD DOSE: 2.0 - 3.0 Includes: PROPHYLAXIS for venous thrombosis, systemic embolization; TREATMENT for venous thrombosis and/or pulmonary embolus.HIGH RISK: Target INR is 2.5-3.5 for patients with mechanical heart valves.
[2023-01-09 18:37] LABS: Hematocrit 31.4 % (36.0-45.0); Lymphocytes % 25.2 % (15.3-44.8); MCV 87.1 fL (80-100); MPV 6.8 fL (7.6-11.3); Platelets 235 thou/uL (152-406)
[2023-01-09 18:54] LABS: Albumin 3.8 g/dL (3.4-5.0); Bilirubin Total 0.3 mg/dL (0.2-1.0); Potassium 3.6 mEq/L (3.5-5.1); Protein, Total 7.1 g/dL (6.4-8.2)
--- NOTE | 2023-01-09 20:53 | ER ---
Nurse's Notes [facility] Name: Gladys Blevins Age: 62 yrs Sex: Female : 1960 Arrival Date: 01/09/2023 Time: 17:04 Bed 8 Private MD: Diagnosis: Hypo-osmolality and hyponatremia;Altered mental status, unspecified;Chemical Ingestion Presentation: 01/09 17:15 Chief complaint: Spouse and/or significant other states: the patient took hand ap3 dairy technician thinking it was medication. it is unknown how much she ingested. web design intern believes she ingested the hand dairy technician at approx 1600. Coronavirus screen: At this time, the client does not indicate any symptoms associated with coronavirus-19. Ebola Screen: No symptoms or risks identified at this time. Initial Sepsis Screen: Does the patient meet any 2 criteria? No. Patient's initial sepsis screen is negative. Does the patient have a suspected source of infection? No. Patient's initial sepsis screen is negative. Risk Assessment: Do you want to hurt yourself or someone else? Patient reports no desire to harm self or others. Onset of symptoms was January 09, 2023. 17:15 Method Of Arrival: Ambulatory ap3 17:15 Acuity: BRE 3 ap3 17:18 Note patient is a poor historian. ap3 Triage Assessment: 17:18 General: Appears in no apparent distress. Behavior is calm, cooperative. Pain: Denies ap3 pain. Neuro: Level of Consciousness is awake, alert, obeys commands, Oriented to person, place. Cardiovascular: Patient's skin is warm and dry. Respiratory: Airway is patent Respiratory effort is even, unlabored, Respiratory pattern is regular, symmetrical. Historical: - Allergies: 17:17 Sulfa (Sulfonamide Antibiotics); ap3 - PMHx: 17:17 Asthma; Hypothyroidism; Hypercholesterolemia; ap3 - Immunization history:: Client reports receiving the 2nd dose of the Covid vaccine. - Social history:: Smoking status: Patient/guardian denies using tobacco. Screenin:18 Abuse screen: Denies threats or abuse. Nutritional screening: No deficits noted. ap3 Tuberculosis screening: No symptoms or risk factors identified. 18:16 [facility] ED Fall Risk Assessment (Adult) Score/Fall Risk Level 3 or more points = High me1 Risk Oriented to surroundings, Maintained a safe environment, Educated pt \T\ family on fall prevention, incl call for assistance when getting out of bed, Provided non-skid footwear, Hourly rounding (assess needs \T\ fall precautionary measures) done. Assessment: 17:38 Reassessment: [id number] case number with poison control. They advise observation time to ap3 be approx 6 hours and look for signs of intoxication, get CBC, CMP, Blood glucose, ETOH leve. EKG and cardiac monitoring. Sandra was the mill representative this nurse spoke with. 18:16 General: Appears comfortable, well groomed, well developed, well nourished, Behavior is me1 cooperative, appropriate for age, anxious. Pain: Denies pain. Neuro: Level of Consciousness is awake, alert, obeys commands, confused, Oriented to person, place, situation. Cardiovascular: Capillary refill < 3 seconds Patient's skin is warm and dry. Respiratory: Airway is patent Respiratory effort is even, unlabored, Respiratory pattern is regular, symmetrical. 19:39 General: Appears comfortable, Behavior is cooperative, anxious. Neuro: Level of kd3 Consciousness is awake, alert, obeys commands, confused, Oriented to person, place. Cardiovascular: Patient's skin is warm and dry. 21:24 General: Pt continues to be confused and getting up out of the bed. . kd3 Vital Signs: 17:15 BP 132 / 71; Pulse 83; Resp 17; Temp 97.6; Pulse Ox 99% ; ap3 19:22 BP 137 / 69; Pulse 76; Resp 16 S; Pulse Ox 100% on R/A; kd3 19:40 BP 137 / 69; Pulse 83; Resp 19; Pulse Ox 100% on R/A; kd3 20:22 BP 132 / 59; Pulse 75; Resp 18; Pulse Ox 100% on R/A; kd3 21:23 BP 106 / 50; Pulse 76; Resp 19; Pulse Ox 100% on R/A; kd3 22:55 BP 133 / 65; Pulse 79; Resp 19; Pulse Ox 100% on R/A; kd3 ED Course: 17:05 Patient arrived in ED. rg4 17:17 Triage completed. ap3 17:19 Arm band placed on right wrist. ap3 17:22 Shar Oneal DO is Attending Physician. ms3 17:42 Latonia Bowie, RN is Primary Nurse. ph 18:16 Patient has correct armband on for positive identification. Bed in low position. Call me1 light in reach. Side rails up X2. Provided Education on: on poc. verbalized understanding. . 18:16 No provider procedures requiring assistance completed. me1 18:44 ETOH Level Sent. ko1 20:52 Tu Bradshaw MD is Hospitalizing Provider. ms3 21:31 Primary Nurse role handed off by Latonia Bowie RN kj1 21:32 Tom Yepez RN is Primary Nurse. rv 21:51 Inserted saline lock: 22 gauge in right hand, using aseptic technique. rv 23:18 Patient admitted, IV remains in place. kd3 Administered Medications: 21:51 Drug: NS 0.9% IV 500 ml Route: IV; Rate: bolus; Site: right hand; rv 22:55 Follow up: IV Status: Completed infusion kd3 Medication: 18:16 VIS not applicable for this client. me1 Outcome: 20:52 Decision to Hospitalize by Provider. ms3 23:18 Admitted to Med/surg kd3 23:18 Condition: stable 23:18 Discharge instructions given to patient, family, Instructed on the need for admit, Demonstrated understanding of instructions, follow-up care. 23:18 Patient left the ED. kd3 Signatures: Latonia Bowie, RN RODY Radha Cabrales rg4 Marian Carbone RN RN ap3 Tom Yepez, RODY FINE Nasima Mishra kj1 Shar Oneal, DO ms3 Daniela Jules RN RN kd3 Eloisa Brown RN RN ko1 Breann Morocho RN RN me1 Corrections: (The following items were deleted from the chart) 17:20 17:15 Chief complaint: Spouse and/or significant other states: the patient took hand ap3 dairy technician thinking it was medication. it is unknown how much she ingested. ap3
--- NOTE | 2023-01-09 20:53 | EDPHYS ---
Physician Documentation [facility] Name: Gladys Blevins Age: 62 yrs Sex: Female : 1960 Arrival Date: 01/09/2023 Time: 17:04 Bed 8 Private MD: ED Physician Shar Oneal HPI: 01/09 17:39 This 62 yrs old Female presents to ER via Ambulatory with complaints of Purell ms3 ingestion. 17:39 62-year-old female with past medical history of asthma, hypothyroidism, ms3 hypercholesterolemia, altered mental status presents after accidentally ingesting Purell. Patient is unaware of the amount of Purell she ingested; however, she states possibly 3 pumps. Patient denies pain. Patient denies nausea, vomiting, fevers, chills, shortness of breath, chest pain. Historical: - Allergies: 17:17 Sulfa (Sulfonamide Antibiotics); ap3 - PMHx: 17:17 Asthma; Hypothyroidism; Hypercholesterolemia; ap3 - Immunization history:: Client reports receiving the 2nd dose of the Covid vaccine. - Social history:: Smoking status: Patient/guardian denies using tobacco. ROS: 18:34 Constitutional: Negative for fever, and chills. Neck: Negative for injury, pain, and ms3 swelling, Cardiovascular: Negative for chest pain, and palpitations. Respiratory: Negative for shortness of breath, cough, wheezing, and pleuritic chest pain, Abdomen/GI: Negative for abdominal pain, nausea, vomiting, diarrhea, and constipation, MS/Extremity: Negative for injury and deformity, Skin: Negative for injury, rash, and discoloration. 18:34 All other systems are negative. Exam: 18:34 Constitutional: This is a well developed, well nourished patient who is awake, alert, ms3 and in no acute distress. Head/Face: Normocephalic, atraumatic. Neck: Trachea midline, no cervical lymphadenopathy. Supple, full range of motion without nuchal rigidity, or vertebral point tenderness. No Meningismus. Chest/axilla: Normal chest wall appearance and motion. Nontender with no deformity. Cardiovascular: Regular rate and rhythm with a normal S1 and S2. No gallops, murmurs, or rubs. Normal PMI, no JVD. No pulse deficits. Respiratory: Lungs have equal breath sounds bilaterally, clear to auscultation and percussion. No rales, rhonchi or wheezes noted. No increased work of breathing, no retractions or nasal flaring. Abdomen/GI: Soft, non-tender, with normal bowel sounds. No distension or tympany. No guarding or rebound. No evidence of tenderness throughout. Skin: Warm, dry with normal turgor. Normal color with no rashes, no lesions, and no evidence of cellulitis. MS/ Extremity: Pulses equal, no cyanosis. Neurovascular intact. Full, normal range of motion. 19:24 ECG was reviewed by the Attending Physician. ms3 Vital Signs: 17:15 BP 132 / 71; Pulse 83; Resp 17; Temp 97.6; Pulse Ox 99% ; ap3 19:22 BP 137 / 69; Pulse 76; Resp 16 S; Pulse Ox 100% on R/A; kd3 19:40 BP 137 / 69; Pulse 83; Resp 19; Pulse Ox 100% on R/A; kd3 20:22 BP 132 / 59; Pulse 75; Resp 18; Pulse Ox 100% on R/A; kd3 21:23 BP 106 / 50; Pulse 76; Resp 19; Pulse Ox 100% on R/A; kd3 22:55 BP 133 / 65; Pulse 79; Resp 19; Pulse Ox 100% on R/A; kd3 MDM: 17:38 Patient medically screened. ms3 18:34 Differential diagnosis: Ingestion/exposure to Purell Electrolyte abnormality vs Alcohol ms3 intoxication. 20:52 Data reviewed: vital signs, nurses notes, lab test result(s), EKG, and as a result, I ms3 will admit patient. Consideration of Admission/Observation Patient was admitted/placed on observation. Management of patient was discussed with the following: Hospitalist: Akin Wakefield NP on behalf of Dr Bradshaw. Historians other than the Patient: Spouse/Significant Other: Patient's . Counseling: I had a detailed discussion with the patient and/or guardian regarding: the historical points, exam findings, and any diagnostic results supporting the discharge/admit diagnosis, lab results, the need for further work-up and treatment in the hospital. ED course: Discussed hyponatremia with patient's . He agrees with admission for continued hyponatremia work-up. Patient remains in stable condition. Discussed case with Akin Robert, nurse petitioner, and he accepts patient on behalf of Dr. Bradshaw. 21:05 Management of patient was discussed with the following: Counselor Aid: Dr Wren- ms3 Recommends treatment with IV Keppra 500 mg BID. Notify family no EEG capabilities at [facility] if they would like to stay vs transfer.. ED course: Discussed transfer vs treatment with Keppra with patient and her and they do not wish to be transferred at this time.. 01/09 17:39 Order name: CBC with Diff; Complete Time: 19:13 ms3 01/09 17:39 Order name: CMP; Complete Time: 19:13 ms3 01/09 18:34 Order name: ETOH Level; Complete Time: 19:13 ms3 01/09 21:31 Order name: Urine Potassium Random la1 01/09 21:31 Order name: Urine Sodium Random la1 01/09 21:31 Order name: Urine Osmolality la1 01/09 21:31 Order name: Osmolality, Serum la1 01/09 21:31 Order name: BNP la1 01/09 17:39 Order name: EKG; Complete Time: 17:39 ms3 01/09 17:39 Order name: Blood Glucose Level; Complete Time: 19:07 ms3 01/09 17:39 Order name: EKG - Nurse/Tech; Complete Time: 19:06 ms3 01/09 17:39 Order name: Monitor; Complete Time: 19:06 ms3 EC:24 Rate is 77 beats/min. Rhythm is regular. QRS [place] is Normal. SD interval is normal. QRS ms3 interval is normal. Clinical impression: Normal ECG. Interpreted by me. Reviewed by me. Administered Medications: 21:51 Drug: NS 0.9% IV 500 ml Route: IV; Rate: bolus; Site: right hand; rv 22:55 Follow up: IV Status: Completed infusion kd3 Disposition Summary: 01/09/23 20:52 Hospitalization Ordered Hospitalization Status: Inpatient Admission ms3 Provider: Tu Bradshaw ms3 Location: Telemetry/MedSurg (Inpatient) ms3 Condition: Stable ms3 Problem: new ms3 Symptoms: are unchanged ms3 Bed/Room Type: Standard ms3 Room Assignment: 225(01/09/23 22:55) kd3 Diagnosis - Hypo-osmolality and hyponatremia ms3 - Altered mental status, unspecified ms3 - Chemical Ingestion ms3 Discharge Instructions: - Discharge Summary Sheet ms3 - Hyponatremia ms3 - Hyponatremia, [id number] ms3 - Nontoxic Ingestion, Adult ms3 Forms: - Medication Reconciliation Form ms3 - SBAR form ms3 - Leadership Thank You Letter ms3 Signatures: Dispatcher [employer] EDAkin Horowitz, ROLLING MACHINE OPERATOR-C ROLLING MACHINE OPERATOR-Cla1 Marian Carbone RN RN ap3 Tom Yepez RN Shar Moncada DO DO ms3 Daniela Jules RN RN kd3 Corrections: (The following items were deleted from the chart) 22:55 20:52 ms3 kd3
[2023-01-09] MEDS ORDERED: NA CHLORIDE 0.9% 500 ML ONE (21:54)
--- NOTE | 2023-01-09 22:36 | P.HP ---
Certification for Inpatient Patient admitted to: Inpatient With expected LOS: >2 Midnights Patient will require the following post-hospital care: None Practitioner: I am a practitioner with admitting privileges, knowledge of patient current condition, hospital course, and medical plan of care. Services: Services provided to patient in accordance with Admission requirements found in Title 42 Section 412.3 of the Code of Federal Regulations Patient History Date of Service: 01/09/23 Reason for admission: AMS History of Present Illness: 62-year-old female with history of asthma, hypothyroidism, hyperlipidemia, hyponatremia, episodes of confusion/altered mental status, possible seizures, possible atypical meningitis presents emergency department with altered mental status, ingestion of hand butter maker. She has had multiple admissions ever since her initial admission on 12/15/[address] [facility] where she had extensive testing including MRI, EEG, lumbar punctures, she has since had multiple readmissions with altered mental status. This has been made challenging by the fact that she is lucid between the episodes of confusion and refuses inte rventions frequently. This evening reports that she drank from it the hands and times are approximately 3 pumps worth as she thought it was her home medications, she was brought here for evaluation, she has been cleared from poison control as far as ingestion does but she remains confused, disoriented. Her sodium is 126 down from 129 discharge but this is not likely contributing to her altered mental status currently. ED provider wishes to admit patient under observation for hyponatremia, AMS. After long discussion with regarding plan of care, options. Ultimately his goal long-term is to have replaced if her symptoms persist although he will need to gain guardianship which he plans on starting tomorrow morning. guest services agent consult be placed as well. Allergies cefuroxime axetil [From Ceftin] Allergy (Intermediate, Verified 01/17/12 00:06) Hives Sulfa (Sulfonamide Antibiotics) [Sulfa(Sulfonamide Antibiotics)] Allergy (Intermediate, Verified 01/17/12 00:06) Nausea/Vomiting Home Medications: Alendronate Sodium 70 mg PO SEECOM 01/03/23 Escitalopram Oxalate 10 mg PO DAILY 01/03/23 Famciclovir [Famvir] 500 mg PO BID 01/03/23 levETIRAcetam [Levetiracetam] 500 mg PO DAILY 08/09/23 Aspirin Chewable [Aspirin Chewable*] 81 mg PO DAILY #30 tab.chew 01/05/23 Erythromycin Opth [Erythromycin Eye Ointment*] 1 appl LEFT EYE BID #1 tube 01/05/23 Sodium Chloride Tab [Sodium Chloride*] 2 gm PO BIDWM #120 tab 01/05/23 - Past Medical/Surgical History Diabetic: No -: Asthma -: Hypothyroidism -: Hyperlipidemia -: Hyponatremia -: Seizures? Past Surgical History: Unable to obtain Psychosocial/ Personal History: Patient currently lives at home with her - Family History Family History: Reviewed- Non-Contributory - Social History Smoking Status: Never smoker Alcohol use: No CD- Drugs: No Caffeine use: Yes Place of Residence: Home Review of Systems 10-point ROS is otherwise unremarkable Neurological: Confusion Physical Examination - Physical Exam General: Alert, In no apparent distress, Oriented x1, Confused HEENT: Atraumatic, PERRLA, Mucous membr. moist/pink, EOMI, Sclerae nonicteric Neck: Supple, 2+ carotid pulse no bruit, No LAD, Without JVD or thyroid abnormality Respiratory: Clear to auscultation bilaterally, Normal air movement Cardiovascular: Regular rate/rhythm, Normal S1 S2 Capillary refill: <2 Seconds Gastrointestinal: Normal bowel sounds, No tenderness Musculoskeletal: No tenderness Integumentary: No rashes Neurological: Normal speech, Normal strength at 5/5 x4 extr, Normal tone, Normal affect - Studies Laboratory Data (last 24 hrs) 01/09/23 01/09/23 18:20 18:20 WBC 7.90 Hgb 10.9 L Hct 31.4 L Plt Count 235 Sodium 126 L Potassium 3.6 BUN 11 Creatinine 0.60 Glucose 110 H Total Bilirubin 0.3 AST 28 ALT 56 Alkaline Phosphatase 84 Assessment and Plan - Plan Assessment: Acute on chronic hyponatremia Intermittent confusion/altered mental status with ingestion of hand butter maker, possible seizure disorder Hypothyroidism Hyperlipidemia Asthma Plan: Acute on chronic hyponatremia Previously 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 We will restart salt tabs, given 500 cc NS in ED. Additional sodium studies ordered. If there is worsening will consult nephrology. Doubt this is contributing to her mental status given the small drop. Intermittent confusion/altered mental status with ingestion of hand butter maker, possible seizure disorder Extensive work-up has taken place including MRI, EEG, LP. She is intermittently lucid and during that time typically refuses medical care although at this time she is currently oriented x1-2 and not able to make her own medical decisions. Continue Keppra. May benefit with placement/Ritu psych. Hypothyroidism Levothyroxine continued Hyperlipidemia Atorvastatin continued Asthma As needed inhalers. DVT PPX: Lovenox Code status: Full Discharge Plan: Home Plan to discharge in: 24 Hours - Advance Directives Does patient have a Living Will: No Does patient have a Durable POA for Healthcare: No - Code Status/Comfort Care Code Status Assessed: Yes (Full code) Critical Care: No Time Spent Managing Pts Care (In Minutes): 70
[2023-01-09] MEDS ORDERED: ONDANSETRON 4 MG/2 ML VIAL IV PRN (23:17)
[2023-01-09 23:27] VITALS: BMI 24.8
[2023-01-09] MEDS: SODIUM CHLORIDE 1 GM TAB PO SCH (23:59)
[2023-01-10 00:21] LABS: Specific Gravity < 1.005 (1.005-1.030); Urine Bilirubin NEGATIVE (Negative); Urine Blood Negative (Negative); Urine Clarity Clear (Clear); Urine Color Colorless (Yellow); Urine Glucose NEGATIVE (Negative); Urine Protein NEGATIVE (Negative); Urine Urobilinogen Normal (Normal)
[2023-01-10 03:50] LABS: Absolute Lymphocytes (CBC) 1.6 K/uL (0.7-4.9); Hematocrit 30.4 % (36.0-45.0); Lymphocytes % 25.3 % (15.3-44.8); MCV 86.9 fL (80-100); MPV 7.1 fL (7.6-11.3); Platelets 217 thou/uL (152-406)
[2023-01-10 04:15] LABS: Magnesium 1.3 mg/dL (1.6-2.4); Potassium 3.4 mEq/L (3.5-5.1); Thyroid Stimulating Hormone 1.17 uIU/mL (0.358-3.740)
[2023-01-10] MEDS ORDERED: Magnesium Sulfate 2gm IVPB 2 G/50 ML BAG IV ONE (05:07)
[2023-01-10] MEDS ORDERED: POTASSIUM 25 MEQ EFFERV TAB PO ONE ×2 (05:15→20:45)
[2023-01-10] MEDS ORDERED: LEVOTHYROXINE SOD 0.075 MG TAB PO SCH (06:30)
[2023-01-10] MEDS: ACETAMINOPHEN 500 MG TAB PO PRN (06:39)
--- NOTE | 2023-01-10 07:33 | P.PN ---
Date of Service: 01/10/23 Subjective: Feeling better today mentation improved today - doesn't recall events leading up to hospitalization Family concerned patient cannot take care of herself given intermittent confusion ROS: 10 point ROS as noted above, otherwise negative Physical Exam: GEN: Alert, Intermittently Confused - currently oriented x3 HEENT: Normal conjunctiva, sclera anicteric CV: Regular rate and rhythm, no edema Pulm: Nonlabored respirations on room air ABD: Soft, nontender, nondistended Neuro: Normal speech, normal affect vitals reviewed Problem List: Acute on chronic hyponatremia Intermittent confusion/altered mental status with ingestion of hand avionic technician, possible seizure disorder Hypothyroidism Hyperlipidemia Asthma Acute on chronic hyponatremia Previously 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 No clear etiology of hyponatremia restart salt tabs, given 500 cc NS in ED. Additional sodium studies ordered. Nephrology consulted Intermittent confusion/altered mental status with ingestion of hand avionic technician, possible seizure disorder Extensive work-up has taken place including MRI, EEG, LP. She is intermittently lucid and during that time typically refuses medical care Family reports patient has been Intermittently confused since November; reports patient rarely lucid for a full day; "has never returned back to her normal self" seems to be ongoing confusion /dementia with some behavioral component Continue Keppra. May benefit with placement/Ritu psych vs memory care unit Neurology consulted Psych consulted ss/cm assisting with dispo as family concerned patient cannot take care of herself and family can't adequately care for her Hypothyroidism. continue Levothyroxine Hyperlipidemia. continue Atorvastatin Asthma. PRN inhalers. VTE: Lovenox Code: Full Dispo: Home vs SNF/placement ~2 days ss/cm assisting with dispo as family concerned patient cannot take care of herself.
[2023-01-10] MEDS: LEVOTHYROXINE SOD 0.075 MG TAB PO SCH (07:54)
[2023-01-10] MEDS: SODIUM CHLORIDE 1 GM TAB PO SCH ×2 (07:56→16:12)
[2023-01-10] MEDS: ENOXAPARIN 40 MG/0.4 ML SQ SCH (07:56)
[2023-01-10] MEDS: ASPIRIN 81 MG CHEWABLE TABLET PO SCH (07:56)
[2023-01-10] MEDS ORDERED: levETIRAcetam 500 MG TAB PO ONE (09:00)
[2023-01-10 14:50] LABS: Magnesium 2.1 mg/dL (1.6-2.4); Potassium 3.8 mEq/L (3.5-5.1)
--- NOTE | 2023-01-10 14:50 | CON ---
Date of Consultation: 01/10/2023 Reason For Consultation: Hyponatremia, electrolyte imbalance. History Of Present Illness: This is a pleasant 62-year-old female, well known to me from previous ad mission with significant past medical history of hyponatremia secondary to SIADH, bronchial asthma, h ypothyroidism, hyperlipidemia, seizure. The patient recently admitted to the hospital with altered m ental status. The patient was [facility] with hyponatremia and alter ed mental status, found to have meningitis, treated. The patient apparently supposed to receive the salt tablet, but apparently the patient did not take it, as it did not arrive to the pharmacy. The p atient came again with altered mental status, found to have hyponatremia. Past Medical History: Includes; 1.Bronchial asthma. 2.Hypothyroidism. 3.Hyperlipidemia. 4.Hyponatremia. 5.Seizure. Allergies: TO CEFUROXIME AND BACTRIM. Home Medications: Include alendronate, citalopram, , Keppra, aspirin, erythromycin. Family History: Positive for hypertension. Social History: Denied smoking, denied drinking, denied drugs abuse. Review of Systems: Head and Neck: No red eye. No ear pain. GI: No nausea. No vomiting. : No polyuria. No dysuria. No hematuria. First Assistant Manager: No vaginal discharge. Respiratory: No shortness of breath. Cardiovascular: No chest pain. Endocrine: No polydipsia. Skin: No rash. Neuro: Has altered mental status. Musculoskeletal: No joint pain. Physical Examination: General: When I saw the patient; the patient sitting in bed, comfortable, pleasantly confused. Vital Signs: Blood pressure 115/58, pulse of 84, afebrile. Chest: Clear to auscultation. Heart: S1, S2. Regular. Abdomen: Soft, nontender. Extremities: No edema. Neurologic: Alert. No focality. Not oriented. Laboratory Data: Hemoglobin 10.8. Sodium 131, potassium 3.4, bicarb 23, BUN 8, creatinine 0.4. Yes terday; sodium 126, potassium 3.6. Assessment And Plan: 1.Hyponatremia secondary to SIADH. I am going to resume the patient on the salt tablet and we will follow up the patient. 2.I doubt the altered mental status secondary to the hyponatremia. Even after corrected the sodium, the patient has still altered mental status. 3.Hypomagnesemia. We will supplement. 4.Hypokalemia. We will supplement. We will follow up after replacing the magnesium. 5.Hypertension, controlled, optimal. Continue current treatment. Time spent examining the patient [id number], reviewing data, lab and radiology, placing order, disc ussing the case with the patient, discussing the case with the steamboat inspector including hospitalist and nursing staff more than 75 minutes. JANET Voice ID: [id number] Report ID: [id number]
--- NOTE | 2023-01-10 18:27 | EKG ---
Test Date: 2023-01-09 Test Time: 18:52:18 Solar Photovoltaic Systems Engineer: MATHIEU MEASUREMENT RESULTS: Intervals: Rate: 77 [place]: 148 QRSD: 74 QT: 380 QTc: 430 [place]: P: 1 [place]: 148 QRS: 53 T: 43 INTERPRETIVE STATEMENTS: Normal sinus rhythm Normal ECG Compared to ECG 12/26/2022 19:16:16 No significant changes Electronically Signed On 01-10-23 18:25:30 CDT by Martin Colunga
[2023-01-10] MEDS ORDERED: POTASSIUM CL SA 10 MEQ TAB PO ONE (20:00)
[2023-01-10] MEDS: ATORVASTATIN 80 MG TAB PO SCH (20:46)
[2023-01-10] MEDS: OLANZapine 2.5 MG TAB PO SCH (20:47)
[2023-01-11 02:31] LABS: Absolute Lymphocytes (CBC) 1.5 K/uL (0.7-4.9); Hematocrit 29.3 % (36.0-45.0); Lymphocytes % 41.9 % (15.3-44.8); MCV 86.5 fL (80-100); MPV 6.9 fL (7.6-11.3); Platelets 216 thou/uL (152-406); RBC Red Blood Cell Count 3.39 M/uL (3.86-4.86)
[2023-01-11 02:43] LABS: Magnesium 1.9 mg/dL (1.6-2.4); Potassium 3.8 mEq/L (3.5-5.1)
[2023-01-11] MEDS: LEVOTHYROXINE SOD 0.075 MG TAB PO SCH (06:04)
--- NOTE | 2023-01-11 07:48 | P.PN ---
Date of Service: 01/11/23 Subjective: Patient sleeping most of day, tired, groggy appears less forgetful today, remembering more events Family feels like she was closer to her normal self this morning no new / worsening problems ROS: 10 point ROS as noted above, otherwise negative Physical Exam: GEN: Alert, oriented x3, Fatigued appearing HEENT: Normal conjunctiva, sclera anicteric CV: Regular rate and rhythm, no edema Pulm: Nonlabored respirations on room air ABD: Soft, nontender, nondistended Neuro: Normal speech, normal affect vitals reviewed Problem List: Acute on chronic hyponatremia Intermittent confusion/altered mental status with ingestion of hand elementary education tutor, possible seizure disorder Hypothyroidism Hyperlipidemia Asthma Acute on chronic hyponatremia Previously 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 No clear etiology of hyponatremia restart salt tabs, given 500 cc NS in ED. Additional sodium studies ordered. Nephrology consulted Sodium improving Intermittent confusion/altered mental status with ingestion of hand elementary education tutor, possible seizure disorder Extensive work-up has taken place including MRI, EEG, LP. She is intermittently lucid and during that time typically refuses medical care Family reports patient has been Intermittently confused since November; reports patient rarely lucid for a full day; "has never returned back to her normal self" seems to be ongoing confusion /dementia with some behavioral component Continue Keppra. May benefit with placement/Ritu psych vs memory care unit Neurology consulted Cont keppra daily Psych consulted - Doesn't feel patient needs inpatient psych at this time. added olanzipine 01/10 01/11 Family feels like she was closer to her normal self this morning. They feel its the first time hes seen the patient this oriented/alert/back to normal since previous discharge Hypothyroidism. continue Levothyroxine Hyperlipidemia. continue Atorvastatin Asthma. PRN inhalers. VTE: Lovenox Code: Full Dispo: [facility] -- pending approval ss/cm consulted
[2023-01-11] MEDS ORDERED: POTASSIUM 25 MEQ EFFERV TAB PO ONE (09:00)
[2023-01-11] MEDS: levETIRAcetam 500 MG TAB PO SCH (09:36)
[2023-01-11] MEDS: ENOXAPARIN 40 MG/0.4 ML SQ SCH (09:36)
[2023-01-11] MEDS: SODIUM CHLORIDE 1 GM TAB PO SCH ×2 (09:36→16:23)
[2023-01-11] MEDS: ASPIRIN 81 MG CHEWABLE TABLET PO SCH (09:36)
--- NOTE | 2023-01-11 13:03 | PN ---
Date of Progress Note: 01/11/2023 Subjective: The patient was admitted with acute kidney injury, hyponatremia secondary to SIADH. The patient did not take her salt tablet, the patient will resume it here. Her sodium started to normal ize. The patient more awake. Physical Examination: Vital Signs: Blood pressure 96/49, pulse of 58, afebrile. Chest: Clear to auscultation. Heart: S1, S2. Regular. Abdomen: Soft, nontender. Extremities: No edema. Neurologic: Alert. No focality. Laboratory Data: Hemoglobin 10.2. Sodium 135, potassium 3.8, bicarb 24, BUN 7, creatinine 0.3, calc ium 8.2, magnesium 1.9. Current Medications: The patient on include aspirin, Lovenox, Tylenol, Keppra, levothyroxine, magnes ium oxide, salt tablet 2 g b.i.d. Assessment And Plan: 1.Hyponatremia secondary to SIADH, recovered. I am going to continue salt tablet. We will follow u p as outpatient. 2.Hypomagnesemia, hypokalemia. We will supplement. 3.Hypertension, controlled, optimal. Continue current treatment. 4.Altered mental status, back to baseline, possible a new onset dementia. We will follow up with fiorella ramos. The patient cleared from the Renal standpoint for discharge planning. JANET Voice ID: [id number] Report ID: [id number]
--- NOTE | 2023-01-11 14:09 | CON ---
Date of Consultation: 01/10/2023 Patient was seen on the medical floor. Reason For Consult: Evaluate patient for confusion and agitation. History Of Present Illness: Ms. Gladys Blevins is a 62-year-old female seen with no past history of psychiatric illnesses, was admitted via the ER on account of altered mental status and suspicion of having accidentally ingested hand director alliance marketing. History was provided by patient and mostly by her and also chart review. The patient's states that he was out of the house for a brief period and on getting back he met her in the kitchen looking very confused and was behaving inappropriately in the kitchen pointing to the floor insisting that their dog urinated on the floor, he states she became even more agitated when he tried to explain to her that it was water and not the dog's urine. he states she kept wandering around the kitchen endlessly and she was confused and when he asked her what she is doing in the kitchen or what eating, she pointed to the hand director alliance marketing on the kitchen counter. He states patient has been functioning at normally with any history of neurological disorder until last month when she had a fall while in the bathroom. He subsequently took her to the hospital where it was found that she had a concussion and Atypical Meningitis. He states since her discharge after weeks of hospitalization she has not returned to her cognitive baseline. He states her short team memory is poor and has become very repetitive with her words. No history of waxing and waning in her level of consciousness. He is worried that patient might inadvertently harm herself. He states patient is no longer able to cook or perform other IADLs however she is still able to perform most of her ADLs. She denies history of depression. No anxiety. No history of auditory or hallucinations and no delusional thoughts reported. He states he is worried about leaving patient all alone at home when he is at work. Patient has been hospitalized multiple times since then her fall in November as a result of aphasia and also having low sodium. During the current presentation to the ER, patient's sodium was 126, which was down from 129 during her last discharge. However, during since her admission, her sodium has been replated but patient continues exhibit her cognitive deficits. She has been for 43 years has 2 children, her son is Autistic and lives with them. No history of alcohol or substance abuse, no history of dementia and bipolar disorder. No history of suicidal or homicidal ideation. Physical Examination: VITAL SIGNS: Blood pressure 104/64, pulse is 77, respiratory rate 16, temperature is 98.1, O2 sat is 99. Mental Status Examination: Patient is well-nourished female, dressed in hospital attire, resting in her room, washing her hands in the sink, cooperative with interview. She is alert and oriented x 3. She is not in any obvious acute cardiorespiratory distress. She exhibits mild psychomotor agitation. Speech is spontaneous, normal rate, rhythm, and volume. She exhibits perseveration. Her mood is described as worried. Affect is mood congruent. Though process mostly tangential, at times linear. Thought content, no delusional thoughts, no suicidal or homicidal ideation. Memory and cognition are poor. Assessment: 1. Traumatic brain injury with sequela 2 Delirium 3. Neurocognitive disorder, unspecified. Plan/recommendations: 1. Patient does not require acute psychiatric hospitalization as she is not suicidal nor homicidal. 2 Recommend Zyprexa 5 mg PO daily for agitation 3. Social work should assist with disposition. 4. Consult Neurology. JAY/MODL Voice ID: [id number] Report ID: [id number] NIMO
[2023-01-11] MEDS: ATORVASTATIN 80 MG TAB PO SCH (22:02)
[2023-01-11] MEDS: OLANZapine 2.5 MG TAB PO SCH (22:02)
[2023-01-12 03:04] LABS: Absolute Lymphocytes (CBC) 1.7 K/uL (0.7-4.9); Hematocrit 30.9 % (36.0-45.0); Lymphocytes % 40.1 % (15.3-44.8); MCV 87.9 fL (80-100); Platelets 246 thou/uL (152-406); RBC Red Blood Cell Count 3.52 M/uL (3.86-4.86)
[2023-01-12 03:09] LABS: Magnesium 1.5 mg/dL (1.6-2.4); Potassium 3.8 mEq/L (3.5-5.1)
[2023-01-12] MEDS ORDERED: Magnesium Sulfate 2gm IVPB 2 G/50 ML BAG IV ONE (06:00)
[2023-01-12] MEDS ORDERED: POTASSIUM 25 MEQ EFFERV TAB PO ONE (06:00)
[2023-01-12] MEDS: LEVOTHYROXINE SOD 0.075 MG TAB PO SCH (06:32)
--- NOTE | 2023-01-12 07:13 | P.PN ---
Date of Service: 01/12/23 Subjective: Doing okay no acute events overnight ROS: 10 point ROS as noted above, otherwise negative Physical Exam: GEN: Alert, oriented x3, Fatigued appearing HEENT: Normal conjunctiva, sclera anicteric CV: Regular rate and rhythm, no edema Pulm: Nonlabored respirations on room air ABD: Soft, nontender, nondistended Neuro: Normal speech, normal affect, repetitive vitals reviewed Problem List: Acute on chronic hyponatremia Intermittent confusion/altered mental status with ingestion of hand ict project manager, possible seizure disorder Hypothyroidism Hyperlipidemia Asthma Acute on chronic hyponatremia Previously 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 No clear etiology of hyponatremia restart salt tabs, given 500 cc NS in ED. Additional sodium studies ordered. Nephrology consulted Sodium improving Intermittent confusion/altered mental status with ingestion of hand ict project manager, possible seizure disorder Extensive work-up has taken place including MRI, EEG, LP. She is intermittently lucid and during that time typically refuses medical care Family reports patient has been Intermittently confused since November; reports patient rarely lucid for a full day; "has never returned back to her normal self" seems to be ongoing confusion /dementia with some behavioral component Continue Kestephani. May benefit with placement/Ritu psych vs memory care unit Neurology consulted Cont angelina daily Psych consulted - Doesn't feel patient needs inpatient psych at this time. added olanzipine 01/10 01/11 Family feels like she was closer to her normal self this morning. They feel its the first time hes seen the patient this oriented/alert/back to normal since previous discharge Hypothyroidism. continue Levothyroxine Hyperlipidemia. continue Atorvastatin Asthma. PRN inhalers. VTE: Lovenox Code: Full Dispo: [facility] - [facility] -- pending approval ss/cm consulted
[2023-01-12] MEDS: SODIUM CHLORIDE 1 GM TAB PO SCH ×2 (09:39→17:19)
[2023-01-12] MEDS: ASPIRIN 81 MG CHEWABLE TABLET PO SCH (09:39)
[2023-01-12] MEDS: levETIRAcetam 500 MG TAB PO SCH (09:39)
[2023-01-12] MEDS: ENOXAPARIN 40 MG/0.4 ML SQ SCH (09:39)
--- NOTE | 2023-01-12 15:20 | P.PN ---
Subjective Date of Service: 01/12/23 Chief Complaint: AMS Subjective: No new changes Physical Examination - Vital Signs Temperature: 98.0 F Blood Pressure: 104/56 Pulse: 62 Respirations: 16 Pulse Ox (%): 98 - Physical Exam General: Other (appears as her stated age) HEENT: Atraumatic, Normocephalic Neck: Supple Respiratory: Other (symmetric chest expansion) Cardiovascular: No rubs, No murmurs Gastrointestinal: Soft and benign, No rebound Musculoskeletal: No clubbing Integumentary: No warmth Neurological: Normal tone Urinary: Other (no bladder distention) External genitalia: Deferred Rectal: Deferred Assessment And Plan - Plan 1. Hyponatremia secondary to SIADH, improved. Continue salt tablet. Encourage by mouth solid food intake 2. Hypomagnesemia, hypokalemia. Replete prn. 3. Hypertension, controlled, optimal. Continue current med regimen. 4. Altered mental status, back to baseline, possible a new onset dementia. We will follow up with primary. The patient cleared from the Renal standpoint for discharge.
[2023-01-12] MEDS: ATORVASTATIN 80 MG TAB PO SCH (20:31)
[2023-01-12] MEDS: OLANZapine 2.5 MG TAB PO SCH (20:32)
[2023-01-13] MEDS: LEVOTHYROXINE SOD 0.075 MG TAB PO SCH (06:01)
[2023-01-13 07:09] LABS: Magnesium 1.7 mg/dL (1.6-2.4)
--- NOTE | 2023-01-13 07:09 | P.PN ---
Date of Service: 01/13/23 Subjective: doing okay no acute events overnight stable forgetful at times ROS: 10 point ROS as noted above, otherwise negative Physical Exam: GEN: Alert, oriented x3, NAD, confused / not 100% appropriate answers HEENT: Normal conjunctiva, sclera anicteric CV: Regular rate and rhythm, no edema Pulm: Nonlabored respirations on room air, clear bilaterally ABD: Soft, nontender, nondistended Neuro: Normal speech, normal affect, repetitive at times vitals reviewed Problem List: Acute on chronic hyponatremia Intermittent confusion/altered mental status with ingestion of hand cook dessert suspected seizure disorder Hypothyroidism Hyperlipidemia Asthma Acute on chronic hyponatremia Previously 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 No clear etiology of hyponatremia restart salt tabs, given 500 cc NS in ED. Additional sodium studies ordered. Nephrology consulted Intermittent confusion/altered mental status with ingestion of hand cook dessert suspected seizure disorder Extensive work-up has taken place including MRI, EEG, LP. She is intermittently lucid and during that time typically refuses medical care states patient has remained confused since initial hospitalization at [facility], only briefly <1 day having some improvement, but "has never returned back to her normal self" seems to be ongoing confusion /dementia with some behavioral component Continue Keppra. Neurology consulted Cont keppra Psych consulted - Doesn't feel patient needs inpatient psych at this time. added olanzipine 01/10 01/11 Family feels like she was closer to her normal self this morning. They feel its the first time hes seen the patient this oriented/alert/back to normal since previous discharge Hypothyroidism. continue Levothyroxine Hyperlipidemia. continue Atorvastatin Asthma. PRN inhalers. VTE: Lovenox Code: Full Dispo: [facility] - [facility] -- pending approval ss/cm consulted
[2023-01-13] MEDS: levETIRAcetam 500 MG TAB PO SCH (08:22)
[2023-01-13] MEDS: SODIUM CHLORIDE 1 GM TAB PO SCH ×2 (08:22→16:36)
[2023-01-13] MEDS: ACETAMINOPHEN 500 MG TAB PO PRN (08:22)
[2023-01-13] MEDS: ENOXAPARIN 40 MG/0.4 ML SQ SCH (08:22)
[2023-01-13] MEDS: ASPIRIN 81 MG CHEWABLE TABLET PO SCH (08:22)
--- NOTE | 2023-01-13 19:09 | PN ---
Date of Progress Note: 01/13/2023 Chief Complaint: Hyponatremia, SIADH. Subjective: The patient came to the hospital because of altered mental status, confusion. The patie nt has history of underlying dementia and she was complaining of difficulty with walking. Review of Systems: Today, denies chest pain, palpitation. Physical Examination: Lungs: Clear to auscultation bilaterally. Heart: S1, S2. Abdomen: Soft, benign. Extremities: No edema. Impression And Plan: 1.Hyponatremia secondary to syndrome of inappropriate antidiuretic hormone secretion, improved. Con tinue sodium chloride tablets. Encourage protein intake and solid food intake as tolerated. 2.Hypomagnesemia, hypokalemia. Replete as needed. 3.Hypertension, controlled, optimal. Continue current treatment. Avoid HCTZ. 4.Altered mental status. The patient has had some confusion. Mental status is back to baseline. [facility] is following. 5.Hypertension. Avoid HCTZ. Continue current treatment with blood pressure medication. WALI/JAMIEL Voice ID: [id number] Report ID: [id number]
[2023-01-13] MEDS: OLANZapine 2.5 MG TAB PO SCH (20:12)
[2023-01-13] MEDS: ATORVASTATIN 80 MG TAB PO SCH (20:12)
[2023-01-14] MEDS: LEVOTHYROXINE SOD 0.075 MG TAB PO SCH (05:49)
[2023-01-14] MEDS ORDERED: LORazepam 2 MG/ML VIAL IV ONE (07:30)
--- NOTE | 2023-01-14 07:33 | P.PN ---
Date of Service: 01/14/23 Subjective: confused more than usual last night. fixated on finding banana that didn't exist last night, found on floor crawling. ROS: 10 point ROS as noted above, otherwise negative Physical Exam: GEN: Alert, oriented x2, confused / not 100% appropriate answers HEENT: Normal conjunctiva, sclera anicteric CV: Regular rate and rhythm, no edema Pulm: Nonlabored respirations on room air, clear bilaterally ABD: Soft, nontender, nondistended Neuro: Normal speech, normal affect, repetitive at times vitals reviewed Problem List: Acute on chronic hyponatremia Intermittent confusion/altered mental status with ingestion of hand sand miller suspected seizure disorder Hypothyroidism Hyperlipidemia Asthma Acute on chronic hyponatremia Previously 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 No clear etiology of hyponatremia restart salt tabs, given 500 cc NS in ED. Additional sodium studies ordered. Nephrology consulted Intermittent confusion/altered mental status with ingestion of hand sand miller suspected seizure disorder Extensive work-up has taken place including MRI, EEG, LP. She is intermittently lucid and during that time typically refuses medical care states patient has remained confused since initial hospitalization at [facility], only briefly <1 day having some improvement, but "has never returned back to her normal self" seems to be ongoing confusion /dementia with some behavioral component Continue Pietro. Neurology consulted Cont keppra Psych consulted - Doesn't feel patient needs inpatient psych at this time. added olanzipine 01/10 01/11 Family feels like she was closer to her normal self this morning. They feel its the first time hes seen the patient this oriented/alert/back to normal since previous discharge 01/14 confused overnight - fixated on finding banana that didn't exist last night, found on floor crawling. Hypothyroidism. continue Levothyroxine Hyperlipidemia. continue Atorvastatin Asthma. PRN inhalers. VTE: Lovenox Code: Full Dispo: [facility] -- pending approval ; further improvement ss/cm consulted
[2023-01-14] MEDS: ASPIRIN 81 MG CHEWABLE TABLET PO SCH (08:49)
[2023-01-14] MEDS: levETIRAcetam 500 MG TAB PO SCH (08:50)
[2023-01-14] MEDS: ENOXAPARIN 40 MG/0.4 ML SQ SCH (08:50)
[2023-01-14] MEDS: SODIUM CHLORIDE 1 GM TAB PO SCH ×2 (08:50→16:56)
[2023-01-14] MEDS ORDERED: levETIRAcetam 500 MG in NA CHLORIDE 0.9% 100 ML IV ONE (11:00)
[2023-01-14 12:48] LABS: Specific Gravity 1.015 (1.005-1.030); Urine Bilirubin NEGATIVE (Negative); Urine Blood Negative (Negative); Urine Clarity Clear (Clear); Urine Color Light-Yellow (Yellow); Urine Glucose NEGATIVE (Negative); Urine Protein NEGATIVE (Negative); Urine Urobilinogen Normal (Normal)
[2023-01-14] MEDS ORDERED: Ringers Lactate 1,000 ML IV SCH (13:00)
[2023-01-14 16:03] LABS: Hematocrit 34.9 % (36.0-45.0); MCV 87.1 fL (80-100); MPV 6.7 fL (7.6-11.3); Platelets 265 thou/uL (152-406); RBC Red Blood Cell Count 4.01 M/uL (3.86-4.86)
[2023-01-14 16:22] LABS: Albumin 3.9 g/dL (3.4-5.0); Bilirubin Total 0.4 mg/dL (0.2-1.0); C-Reactive Protein 3.7 mg/L (<3.00); Potassium 3.4 mEq/L (3.5-5.1); Protein, Total 7.5 g/dL (6.4-8.2)
[2023-01-14 16:45] LABS: Blood Morphology Comment NOT SEEN (NOT SEEN); Platelet Estimate ADEQ
[2023-01-14] MEDS: CEFTRIAXONE 1,000 MG in NA CHLORIDE 0.9% 50 ML IVPB SCH (16:56)
--- NOTE | 2023-01-14 19:42 | PN ---
Date of Progress Note: 01/14/2023 Chief Complaint: Hyponatremia, SIADH. History Of Present Illness: Patient came to the hospital because of altered mental status, confusion . Patient has history of underlying dementia and she was complaining of difficulty with walking. Review of Systems: Patient was agitated today and anxious. The patient was medicated for anxiety. She is lethargic. S he cannot provide review of systems. Physical Examination: Lungs: Clear to auscultation bilaterally. Heart: S1, S2. Abdomen: Soft. Extremities: No edema. Impression And Plan: 1.Hyponatremia secondary to SIADH. Sodium level has improved. Continue sodium chloride tablets. E ncourage protein intake and solid food intake as tolerated. 2.Hypomagnesemia, hypokalemia. Replete as needed. 3.Altered mental status, confusion. Workup per primary team. 4.Hypertension. Avoid HCTZ. Continue current treatment with blood pressure medication. WALI/ADALBERTO Voice ID: [id number] Report ID: [id number]
[2023-01-14] MEDS: OLANZapine 2.5 MG TAB PO SCH (20:28)
[2023-01-14] MEDS: ATORVASTATIN 80 MG TAB PO SCH (20:28)
[2023-01-14 20:31] LABS: Absolute Lymphocytes (CBC) 1.6 K/uL (0.7-4.9); Hematocrit 30.6 % (36.0-45.0); Lymphocytes % 22.2 % (15.3-44.8); MPV 6.7 fL (7.6-11.3); Platelets 233 thou/uL (152-406); RBC Red Blood Cell Count 3.52 M/uL (3.86-4.86)
[2023-01-14] MEDS: ACETAMINOPHEN 500 MG TAB PO PRN (20:35)
[2023-01-14 20:50] LABS: Magnesium 1.4 mg/dL (1.6-2.4); Phosphorus 4.2 mg/dL (2.5-4.9); Potassium 3.2 mEq/L (3.5-5.1)
[2023-01-14] MEDS ORDERED: MAGNESIUM SULFATE 1 gm IVPB 1 GM/100 ML BAG IV ONE (22:04)
[2023-01-14] MEDS ORDERED: NACHLORIDE 0.45% 1,000 ML with POTASSIUM CL 40 MEQ IV SCH ×2 (23:00)
[2023-01-14] MEDS: KCL 20 MEQ/100 mL IVPB 100 ML IV SCH (23:08)
[2023-01-14] MEDS: NACHLORIDE 0.45% 1,000 ML IV SCH (23:09)
[2023-01-15 03:30] LABS: Absolute Lymphocytes (CBC) 2.1 K/uL (0.7-4.9); MCV 86.8 fL (80-100); MPV 6.9 fL (7.6-11.3); Platelets 236 thou/uL (152-406); RBC Red Blood Cell Count 3.35 M/uL (3.86-4.86)
[2023-01-15 03:37] LABS: Potassium 3.1 mEq/L (3.5-5.1)
[2023-01-15] MEDS: LEVOTHYROXINE SOD 0.075 MG TAB PO SCH (05:30)
[2023-01-15] MEDS: ACETAMINOPHEN 500 MG TAB PO PRN (07:23)
--- NOTE | 2023-01-15 07:25 | P.PN ---
Date of Service: 01/15/23 Subjective: Denies any pain no nausea / vomiting / diarrhea Forgetful at times low grade temp / fever yesterday ROS: 10 point ROS as noted above, otherwise negative Physical Exam: GEN: Alert, oriented x2, confused / not 100% appropriate answers HEENT: Normal conjunctiva, sclera anicteric CV: Regular rate and rhythm, no edema Pulm: Nonlabored respirations on room air, clear bilaterally ABD: Soft, nontender, nondistended Neuro: Normal speech, normal affect, repetitive at times vitals reviewed Problem List: Acute on chronic hyponatremia Intermittent confusion/altered mental status with ingestion of hand insurance licensing supervisor suspected seizure disorder Fever, unknown origin Hypothyroidism Hyperlipidemia Asthma Acute on chronic hyponatremia Previously 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 No clear etiology of hyponatremia restart salt tabs, given 500 cc NS in ED. Additional sodium studies ordered. Nephrology consulted Intermittent confusion/altered mental status with ingestion of hand insurance licensing supervisor suspected seizure disorder Extensive work-up has taken place including MRI, EEG, LP. She is intermittently lucid and during that time typically refuses medical care states patient has remained confused since initial hospitalization at [facility], only briefly <1 day having some improvement, but "has never returned back to her normal self" seems to be ongoing confusion /dementia with some behavioral component Continue Keppra. Neurology consulted Cont keppra Psych consulted - Doesn't feel patient needs inpatient psych at this time. cont olanzipine (added 01/10) 01/11 Family feels like she was closer to her normal self this morning. They feel its the first time hes seen the patient this oriented/alert/back to normal since previous discharge 01/14 confused overnight - fixated on finding banana that didn't exist last night, found on floor crawling. Brain MRI ordered 01/15 Fever, unknown origin 01/15 notified by staff of a 101.1 yesterday, on reveiw of EMR, noted 100.1 will investigate which is correct as to determine appropriate treatment CXR (01/15): Increased portion of the pulmonary interstitium could reflect atypical infection/inflammation ID consulted Hypothyroidism. continue Levothyroxine Hyperlipidemia. continue Atorvastatin Asthma. PRN inhalers. VTE: Lovenox Code: Full Dispo: SNF - [facility] -- pending approval ; further improvement ss/cm consulted
[2023-01-15] MEDS ORDERED: POTASSIUM CL SA 10 MEQ TAB PO ONE (09:00)
[2023-01-15] MEDS: ASPIRIN 81 MG CHEWABLE TABLET PO SCH (09:16)
[2023-01-15] MEDS: CEFTRIAXONE 1,000 MG in NA CHLORIDE 0.9% 50 ML IVPB SCH (09:16)
[2023-01-15] MEDS: levETIRAcetam 500 MG TAB PO SCH (09:16)
[2023-01-15] MEDS: ENOXAPARIN 40 MG/0.4 ML SQ SCH (09:16)
[2023-01-15] MEDS: SODIUM CHLORIDE 1 GM TAB PO SCH ×2 (09:26→16:14)
--- NOTE | 2023-01-15 10:45 | RAD REPORT ---
EXAM DESCRIPTION: RAD - Chest Single View - 01/15/2023 10:38 am CLINICAL HISTORY: fever, r/o pna COMPARISON: Chest Single View dated 12/26/2022; Chest Single View dated 12/15/2022; CHEST PA AND LAT 2 VIEW dated 03/01/2015; CHEST PA AND LAT 2 VIEW dated 09/27/2009 FINDINGS: Lines: None. Lungs: Increased coarsening of the pulmonary interstitium. Pleural: No significant pleural effusions or pneumothorax. Cardiac: The heart size is within normal limits. Mediastinum: Within normal limits. Bones: No acute fractures. Other: Surgical clips in the right upper quadrant. IMPRESSION: Increased portion of the pulmonary interstitium could reflect atypical infection/inflamm ation, less likely edema. No consolidative pneumonia.
--- NOTE | 2023-01-15 15:46 | P.CNS ---
Date of Consult: 01/15/23 Reason for Consult: fever of unknown origin Chief Complaint: AMS History of Present Illness: Jesus is a 62 yo female with a past medical history of asthma, hypothyroidism, hyperlipidemia, hyponatremia and intermittent confusion/altered mental status who presented to the ED with altered mental status. Patient has reportedly been hospitalized multiple times for altered mental status; [facility]. She underwent lumbar puncture, MRI and EEG at [facility]. Allergies cefuroxime axetil [From Ceftin] Allergy (Intermediate, Verified 01/17/12 00:06) Hives Sulfa (Sulfonamide Antibiotics) [Sulfa(Sulfonamide Antibiotics)] Allergy (Intermediate, Verified 01/17/12 00:06) Nausea/Vomiting Home medications list reviewed: Yes Home Medications: Famciclovir [Famvir] 500 mg PO BID 01/03/23 levETIRAcetam [Levetiracetam] 500 mg PO BID 01/03/23 Aspirin Chewable [Aspirin Chewable*] 81 mg PO DAILY #30 tab.chew 01/05/23 Atorvastatin Calcium [Lipitor] 80 mg PO BEDTIME 01/10/23 Cefuroxime Axetil [Cefuroxime] 1 tab PO BID 01/10/23 Levothyroxine [Synthroid] 75 mcg PO [id number] 01/10/23 Thiamine HCl [Vitamin B-1] 250 mg PO DAILY 01/10/23 icosapent ethyL [Icosapent Ethyl] 2 cap PO BIDWM 01/10/23 - Past Medical/Surgical History Diabetic: No -: Asthma -: Hypothyroidism -: Hyperlipidemia -: Hyponatremia -: Seizures? -: Cholecystectomy Psychosocial/ Personal History: Patient currently lives at home with her - Family History Father Medical History: Other (see notes) - Social History Smoking Status: Unknown if ever smoked Alcohol use: No CD- Drugs: No Caffeine use: Yes Place of Residence: Home Review of Systems Unremarkable Physical Examination Temp Pulse Resp BP Pulse Ox 97.7 F 69 16 105/59 L 100 01/15/23 12:00 01/15/23 12:00 01/15/23 12:00 01/15/23 12:00 01/15/23 12:00 General: In no apparent distress, Oriented x2 HEENT: Atraumatic, Normocephalic Neck: Supple, JVD not distended, Other (full range of motion) Respiratory: Clear to auscultation bilaterally, Normal air movement (on room air) Cardiovascular: No edema, Normal pulses, Regular rate/rhythm Gastrointestinal: Normal bowel sounds, Soft and benign Musculoskeletal: No clubbing, No swelling Integumentary: No rashes, No breakdown Neurological: Normal speech, Normal tone, Normal affect Laboratory Data - Reviewed Microbiology Data - Reviewed Imagings Data: - Reviewed Conclusions/Impression: Problem List Fever of Unknown Origin Seizure disorder Hypothyroidism Hyperlipidemia Asthma Altered Mental Status FUO Altered Metal Status - Recent hospitalization at [facility] during which lumbar puncture, MRI and EEG obtained. She had received Rocephin x 1-2 weeks. Meningitis panel reportedly negative. - No neck pain or rigitidy; full neck ROM intact. Denies headache. Denies nausea, vomiting or diarrhea. No abdominal pain, chest pain or back pain. Denies shortness of breath, cough or palpitations. - XR Chest 01/15: " Increased portion of the pulmonary interstitium could reflect atypical infection/inflammation, less likely edema. No consolidative pneumonia. " - Tmax 100.1 F. No leukocytosis - Blood cultures 01/14: Pending Neurology consulted. Patient seen by Psychiatry and started on Olanzapine. Recommendations - Continue Rocephin for now. Follow up with blood culture results. - Fever trends. PRN tylenol. - Seizure precautions Case discussed with Dr. Shadi Dozier
--- NOTE | 2023-01-15 16:21 | RAD REPORT ---
EXAM DESCRIPTION: MRI - Brain W/Wo Cont - 01/15/2023 3:54 pm CLINICAL HISTORY: CVA/confusion/prior meningitis COMPARISON: head CT December 26, 2022 TECHNIQUE: Axial, sagittal, and coronal magnetic images of the brain were obtained. 13 cc MultiHance administered intravenously FINDINGS: Mild signal within periventricular, deep and subcortical white matter. Patchy signal is pr esent within the brainstem. These probably are ischemic changes secondary to small vessel disease The ventricles are normal in caliber. Diffusion-weighted/ ADC mapping sequences do not demonstrate evidence of an acute infarction. No abnormal enhancement within the brain is seen. An extra-axial fluid collection is not noted. Moderate signal left mastoids IMPRESSION: No acute intracranial abnormality displayed Moderate signal left mastoids may indicate a mastoiditis
--- NOTE | 2023-01-15 18:11 | EKG ---
Test Date: 2023-01-09 Test Time: 19:07:33 Small Boat Engineer: MEASUREMENT RESULTS: Intervals: Rate: 75 AR: 154 QRSD: 84 QT: 390 QTc: 435 [place]: P: -17 AR: 154 QRS: 42 T: 36 INTERPRETIVE STATEMENTS: Normal sinus rhythm Normal ECG Compared to ECG 01/09/2023 18:52:18 No significant changes Electronically Signed On 01-15-23 18:02:02 CDT by Martin Colunga
--- NOTE | 2023-01-15 18:12 | EKG ---
Test Date: 2023-01-09 Test Time: 18:02:41 Adjustment Examiner: MATHIEU MEASUREMENT RESULTS: Intervals: Rate: 80 DC: QRSD: 72 QT: 380 QTc: 438 [place]: P: DC: QRS: 54 T: 49 INTERPRETIVE STATEMENTS: Siinus rhythm normal ECG Electronically Signed On 01-15-23 18:02:23 CDT by Martin Colunga
[2023-01-15] MEDS: ATORVASTATIN 80 MG TAB PO SCH (22:29)
[2023-01-15] MEDS: KCL 20 MEQ/100 mL IVPB 100 ML IV SCH (22:29)
[2023-01-15] MEDS: OLANZapine 2.5 MG TAB PO SCH (22:29)
[2023-01-16] MEDS: NACHLORIDE 0.45% 1,000 ML IV SCH
--- NOTE | 2023-01-16 02:20 | PN ---
Date of Progress Note: 01/15/2023 Chief Complaint: Hyponatremia. History Of Present Illness: The patient came to the hospital because of altered mental status and co nfusion. She has history of dementia and she was complaining of difficulty with walking. Today, she is doing better. She was medicated yesterday for anxiety. She is more alert today. Review of Systems: Lungs: Clear to auscultation bilaterally. Heart: S1 and S2. Abdomen: Soft. Extremities: No edema. Impression: 1.Hyponatremia secondary to SIADH. Sodium level has improved. Continue sodium chloride tablets and p.o. fluid restriction. Encouraged protein intake and solid food intake as tolerated. 2.Hypomagnesemia, hypokalemia. Replete as needed. 3.Altered mental status, confusion. Workup per primary team. 4.Hypertension. Avoid HCTZ due to worsening of hyponatremia. WALI/MODL Voice ID: [id number] Report ID: [id number]
[2023-01-16 05:03] LABS: Absolute Lymphocytes (CBC) 1.6 K/uL (0.7-4.9); Hematocrit 29.5 % (36.0-45.0); Lymphocytes % 39.9 % (15.3-44.8); MCV 87.3 fL (80-100); MPV 7.1 fL (7.6-11.3); Platelets 211 thou/uL (152-406); RBC Red Blood Cell Count 3.38 M/uL (3.86-4.86)
[2023-01-16] MEDS: LEVOTHYROXINE SOD 0.075 MG TAB PO SCH (06:12)
[2023-01-16 06:22] LABS: C-Reactive Protein 6.85 mg/L (<3.00); Magnesium 1.7 mg/dL (1.6-2.4); Potassium 3.8 mEq/L (3.5-5.1)
[2023-01-16] MEDS: ENOXAPARIN 40 MG/0.4 ML SQ SCH (08:11)
[2023-01-16] MEDS: CEFTRIAXONE 1,000 MG in NA CHLORIDE 0.9% 50 ML IVPB SCH (08:11)
[2023-01-16] MEDS: SODIUM CHLORIDE 1 GM TAB PO SCH ×2 (08:11→16:56)
[2023-01-16] MEDS: ASPIRIN 81 MG CHEWABLE TABLET PO SCH (08:12)
[2023-01-16] MEDS: levETIRAcetam 500 MG TAB PO SCH (08:12)
--- NOTE | 2023-01-16 08:45 | P.PN ---
Date of Service: 01/16/23 Chief Complaint: AMS Subjective: Patient seen and examined at bedside. She does not answer questions appropriately at times. No acute events reported overnight. Patient denies any new or worsening complaints. Physical Examination Temp Pulse Resp BP Pulse Ox 97.7 F 56 16 107/56 L 99 01/16/23 08:00 01/16/23 08:00 01/16/23 08:00 01/16/23 08:00 01/16/23 08:00 General: In no apparent distress, Oriented x2 HEENT: Atraumatic, Normocephalic Neck: Supple, JVD not distended, Other (full range of motion) Respiratory: Clear to auscultation bilaterally, Normal air movement. On Room air. Cardiovascular: No edema, Normal pulses, Regular rate/rhythm Gastrointestinal: Normal bowel sounds, Soft and benign Musculoskeletal: No clubbing, No swelling Integumentary: No rashes, No breakdown Neurological: Normal speech, Normal tone, Normal affect Laboratory Data - Reviewed Microbiology Data - Reviewed Imagings Data: - Reviewed Medications List: Reviewed Assessment and Plan Problem List Fever of Unknown Origin Seizure disorder Hypothyroidism Hyperlipidemia Asthma Altered Mental Status Dementia FUO Altered Metal Status - Recent hospitalization at [facility] for similar symptoms during which she underwent lumbar puncture, MRI and EEG. She had received Rocephin x 1-2 weeks. Meningitis panel reportedly negative. - MRI brain 01/15: "No acute intracranial abnormality displayed. Moderate signal left mastoids may indicate a mastoiditis" - XR Chest 01/15: " Increased portion of the pulmonary interstitium could reflect atypical infection/inflammation, less likely edema. No consolidative pneumonia. " - Patient denies any neck pain or rigitidy; full neck ROM intact. Denies headache. Denies nausea, vomiting or diarrhea. No abdominal pain, chest pain or back pain. Denies shortness of breath, cough or palpitations. - Afebrile. No leukocytosis - Blood cultures 01/14: No growth to date - Currently on Rocephin (01/14-) Neurology consulted by Dr. Bradshaw, appreciate recommendations Patient seen by Psychiatry and started on Olanzapine. Recommendations - Continue Rocephin for now. - Concern for possible aseptic meninigits. Consider lumbar puncture and send CSF labs/culture. - Obtain [facility] patient records and results. - Neurology consulted by Dr. Bradshaw, appreciate recommendations - Fever trends. PRN tylenol. Case discussed with Dr. Shadi Dozier
[2023-01-16] MEDS ORDERED: MAGNESIUM SULFATE 1 gm IVPB 1 GM/100 ML BAG IV ONE (09:00)
--- NOTE | 2023-01-16 15:36 | P.PN ---
Subjective Date of Service: 01/16/23 Chief Complaint: AMS Patient is an appropriate, tangential. She denies any complaint. Physical Examination - Vital Signs Temperature: 97.4 F Blood Pressure: 98/52 Pulse: 74 Respirations: 16 Pulse Ox (%): 99 Assessment And Plan - Plan Physical Exam: GEN: Alert, oriented x2, inappropriate speech. 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 Sodium tablets restarted. restart salt tabs, given 500 cc NS in ED. Additional sodium studies ordered. 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 She is intermittently lucid and during that time typically refuses medical care states patient has remained confused [facility] only [facility] day having some improvement, but "has never returned back to her normal self" Neurocognitive disorder. Neurology input appreciated. Continue Keppra. Psych consulted -patient not a candidate for inpatient psych per Dr. Glynn. Olanzapine per psychiatry. Brain MRI 01/15 shows no acute disease. Fever, unknown origin Patient had a single episode of fever 2 days ago. Patient seen by ID. UA is negative for UTI Patient is on empiric IV Rocephin. Hypothyroidism. continue Levothyroxine Hyperlipidemia. continue Atorvastatin Asthma. PRN inhalers. VTE: Lovenox Code: Full Dispo: [facility] -- pending approval ; further improvement ss/cm consulted
--- NOTE | 2023-01-16 18:51 | PN ---
Date of Progress Note: 01/16/2023 Subjective: Nephrology following for hyponatremia. Patient's sodium is improving on a salt tablet. Physical Examination: Vital signs: Temperature 98.9, pulse rate 79, blood pressure 98/61. General: Awake and alert, not in distress. Neck: Supple. No elevated JVD. Heart: Regular rate and rhythm. Normal S1, S2. Chest: Clear to auscultation bilaterally. No rales or wheezes. Abdomen: Soft, nontender. Extremities: No edema. Laboratory Data: Sodium 135, potassium 3.8, BUN 8, creatinine 0.4, calcium 8.3. Assessment And Plan: 1.Hyponatremia, possibly due to SIADH versus salt wasting. As the blood pressure is borderline, con tinue salt table, avoid hypotonic fluids. 2.Hypokalemia and hypomagnesemia. Replace p.r.n. 3.Altered mental status, resolved. 4.Hyperlipidemia. Continue statin. 5.History of seizure disorder. Continue Keppra. 6.Fever of unknown origin. Continue Rocephin. Thank you for allowing me to participate in the patient's care. Total time spent 55 minutes including documentation, reviewing labs, and discussing with the patient and nursing staff. ELISE Voice ID: [id number] Report ID: [id number]
[2023-01-16] MEDS: ACETAMINOPHEN 500 MG TAB PO PRN (20:57)
[2023-01-16] MEDS: OLANZapine 2.5 MG TAB PO SCH (20:59)
[2023-01-16] MEDS: ATORVASTATIN 80 MG TAB PO SCH (21:00)
[2023-01-17] MEDS: LEVOTHYROXINE SOD 0.075 MG TAB PO SCH (05:42)
[2023-01-17] MEDS: ASPIRIN 81 MG CHEWABLE TABLET PO SCH (08:46)
[2023-01-17] MEDS: levETIRAcetam 500 MG TAB PO SCH (08:46)
[2023-01-17] MEDS: SODIUM CHLORIDE 1 GM TAB PO SCH ×2 (08:46→15:55)
[2023-01-17] MEDS: ENOXAPARIN 40 MG/0.4 ML SQ SCH (08:48)
[2023-01-17] MEDS: CEFTRIAXONE 1,000 MG in NA CHLORIDE 0.9% 50 ML IVPB SCH (08:49)
[2023-01-17] MEDS ORDERED: POTASSIUM CL SA 10 MEQ TAB PO ONE (10:50)
--- NOTE | 2023-01-17 14:05 | P.PN ---
Date of Service: 01/17/23 Chief Complaint: AMS Subjective: Patient seen and examined at bedside. Denies any new or worsening complaints. No acute events reported overnight. Physical Examination Temp Pulse Resp BP Pulse Ox 97.8 F 74 16 119/62 100 01/17/23 12:00 01/17/23 12:00 01/17/23 12:00 01/17/23 12:00 01/17/23 12:00 General: In no apparent distress, Oriented x2 HEENT: Atraumatic, Normocephalic Neck: Supple, JVD not distended, Other (full range of motion) Respiratory: Clear to auscultation bilaterally, Normal air movement. On Room air. Cardiovascular: No edema, Normal pulses, Regular rate/rhythm Gastrointestinal: Normal bowel sounds, Soft and benign Musculoskeletal: No clubbing, No swelling Integumentary: No rashes, No breakdown Neurological: Normal speech, Normal tone, Normal affect Laboratory Data - Reviewed Microbiology Data - Reviewed Imagings Data: - Reviewed Medications List: Acetaminophen (Acetaminophen 500 Mg Tab) 500 mg PO Q4HP PRN PRN Reason: Pain scale 2-4 (Mild) Last Admin: 01/16/23 20:57 Dose: 500 mg Aspirin (Aspirin 81 Mg Chewable Tablet) 81 mg PO DAILY [facility] Last Admin: 01/17/23 08:46 Dose: 81 mg Atorvastatin Calcium (Atorvastatin 80 Mg Tab) 80 mg PO BEDTIME [facility] Last Admin: 01/16/23 21:00 Dose: 80 mg Enoxaparin Sodium (Enoxaparin 40 Mg/0.4 Ml) 40 mg SQ DAILY [facility] Last Admin: 01/17/23 08:48 Dose: 40 mg Ceftriaxone Sodium 1,000 mg/ (Sodium Chloride) 50 mls @ 100 mls/hr IVPB DAILY [facility]; Protocol Stop: 01/20/23 09:29 Last Admin: 01/17/23 08:49 Dose: 50 mls Levetiracetam (Levetiracetam 500 Mg Tab) 500 mg PO DAILY [facility] Last Admin: 01/17/23 08:46 Dose: 500 mg Levothyroxine Sodium (Levothyroxine Sod 0.075 Mg Tab) 0.075 mg PO DAILYAC [facility] Last Admin: 01/17/23 05:42 Dose: 0.075 mg Olanzapine (Olanzapine 2.5 Mg Tab) 5 mg PO BEDTIME [facility] Last Admin: 01/16/23 20:59 Dose: 5 mg Assessment and Plan Problem List Fever of Unknown Origin Seizure disorder Hypothyroidism Hyperlipidemia Asthma Altered Mental Status Dementia FUO Altered Metal Status - Recent hospitalization at [facility] for similar symptoms during which she underwent lumbar puncture, MRI and EEG. She had received Rocephin x 1-2 weeks. Meningitis panel reportedly negative. - MRI brain 01/15: "No acute intracranial abnormality displayed. Moderate signal left mastoids may indicate a mastoiditis" - XR Chest 01/15: " Increased portion of the pulmonary interstitium could reflect atypical infection/inflammation, less likely edema. No consolidative pneumonia. " - Afebrile. No leukocytosis - Blood cultures 01/14: No growth to date - Currently on Rocephin (01/14-) Neurology consulted. Psychiatry consulted. Recommendations Patient denies any neck pain or rigitidy; full neck ROM intact. Denies headache. Denies nausea, vomiting or diarrhea. No abdominal pain, chest pain or back pain. Denies shortness of breath, cough or palpitations. Remains afebrile. - Consider discontinuation of Rocephin Case discussed with Dr. Shadi Dozier
--- NOTE | 2023-01-17 15:03 | PN ---
Date of Progress Note: 01/17/2023 Subjective: Patient was admitted with hyponatremia secondary to SIADH. Patient restarted on the jennifer t tablet. Sodium normalized. Patient feeling well. Physical Examination: Vital Signs: Blood pressure 129/50, pulse of 70, afebrile. Chest: Clear to auscultation. Heart: S1, S2. Regular. Abdomen: Soft, nontender. Extremities: No edema. Neuro: Pleasantly confused. No focality. Laboratory Data: Sodium 135, potassium 3.8, bicarb 22, BUN 8, creatinine 0.4, calcium 8.3, magnesium 1.7. Current Medications: The patient on include: 1.Aspirin. 2.Ceftriaxone. 3.Lovenox. 4.Keppra. 5.Magnesium sulfate. 6.Salt tablet 2 g b.i.d. Assessment And Plan: 1.Hyponatremia secondary to SIADH. We will continue current salt tablet and we will monitor. 2.Hypertension, controlled, optimal. 3.Hypomagnesemia. We will supplement. 4.Hypokalemia, status post supplement, resolved. JANET Voice ID: [id number] Report ID: [id number]
--- NOTE | 2023-01-17 16:23 | P.PN ---
Subjective Date of Service: 01/17/23 Chief Complaint: AMS Patient with inappropriate speech. She is oriented to person and place. She denies any complaint. Physical Examination - Vital Signs Temperature: 97.8 F Blood Pressure: 119/62 Pulse: 74 Respirations: 16 Pulse Ox (%): 100 Assessment And Plan - Plan Physical Exam: GEN: Alert, oriented x2, inappropriate speech. 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 Continue sodium tablets Nephrology is following. 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 She is intermittently rei id and during that time typically refuses medical care states patient has remained confused since initial hospitalization at [facility], only briefly <1 day having some improvement, but "has never returned back to her normal self" Neurocognitive disorder. Seen by neurology. Continue Keppra. Psych consulted -patient not a candidate for inpatient psych per Dr. Glynn. Olanzapine per psychiatry. Brain MRI 01/15 shows no acute disease. Fever, unknown origin Patient had a single episode of fever 2 days ago. Patient seen by ID. UA is negative for UTI Patient is on empiric IV Rocephin. No more fever. Hypothyroidism. continue Levothyroxine Hyperlipidemia. continue Atorvastatin Asthma. PRN inhalers. VTE: Lovenox Code: Full Dispo: Per [employer] social worker, patient does not qualify for long-term care. She may have to be discharged to home with home health but she needs 24 x 7 care. ss/cm following.
[2023-01-17] MEDS: OLANZapine 2.5 MG TAB PO SCH (21:20)
[2023-01-17] MEDS: ATORVASTATIN 80 MG TAB PO SCH (21:20)
[2023-01-18] MEDS ORDERED: POTASSIUM CL SA 10 MEQ TAB PO ONE (07:00)
[2023-01-18] MEDS ORDERED: MAGNESIUM SULFATE 1 gm IVPB 1 GM/100 ML BAG IV ONE (07:00)
[2023-01-18] MEDS: LEVOTHYROXINE SOD 0.075 MG TAB PO SCH (07:28)
--- NOTE | 2023-01-18 08:31 | P.PN ---
Date of Service: 01/18/23 Chief Complaint: AMS Subjective: Patient seen and examined at bedside. Inappropriate speech. Denies any new or worsening complaints. Physical Examination Temp Pulse Resp BP Pulse Ox 97.9 F 69 17 130/58 L 99 01/18/23 04:00 01/18/23 04:00 01/18/23 04:00 01/18/23 04:00 01/18/23 04:00 General: In no apparent distress, Oriented x2 HEENT: Atraumatic, Normocephalic Neck: Supple, JVD not distended, Other (full range of motion neck) Respiratory: Clear to auscultation bilaterally, Normal air movement. Breathing comfortably on Room air. Cardiovascular: No edema, Normal pulses, Regular rate/rhythm Gastrointestinal: Normal bowel sounds, Soft and benign Musculoskeletal: No clubbing, No swelling Integumentary: No rashes, No breakdown Neurological: Normal speech, Normal tone, Normal affect Laboratory Data - Reviewed Microbiology Data - Reviewed Imagings Data: - Reviewed Medications List: Acetaminophen (Acetaminophen 500 Mg Tab) 500 mg PO Q4HP PRN PRN Reason: Pain scale 2-4 (Mild) Last Admin: 01/16/23 20:57 Dose: 500 mg Aspirin (Aspirin 81 Mg Chewable Tablet) 81 mg PO DAILY [facility] Last Admin: 01/17/23 08:46 Dose: 81 mg Atorvastatin Calcium (Atorvastatin 80 Mg Tab) 80 mg PO BEDTIME [facility] Last Admin: 01/17/23 21:20 Dose: 80 mg Enoxaparin Sodium (Enoxaparin 40 Mg/0.4 Ml) 40 mg SQ DAILY [facility] Last Admin: 01/17/23 08:48 Dose: 40 mg Ceftriaxone Sodium 1,000 mg/ (Sodium Chloride) 50 mls @ 100 mls/hr IVPB DAILY [facility]; Protocol Stop: 01/20/23 09:29 Last Admin: 01/17/23 08:49 Dose: 50 mls Levetiracetam (Levetiracetam 500 Mg Tab) 500 mg PO DAILY [facility] Last Admin: 01/17/23 08:46 Dose: 500 mg Levothyroxine Sodium (Levothyroxine Sod 0.075 Mg Tab) 0.075 mg PO DAILYAC [facility] Last Admin: 01/18/23 07:28 Dose: 0.075 mg Olanzapine (Olanzapine 2.5 Mg Tab) 5 mg PO BEDTIME [facility] Last Admin: 01/17/23 21:20 Dose: 5 mg Ondansetron HCl (Ondansetron 4 Mg/2 Ml Vial) 4 mg IV Q6HP PRN PRN Reason: NAUSEA / VOMITING Last Admin: 01/14/23 11:47 Dose: 4 mg Sodium Chloride (Flush Normal Saline 10 Ml) 10 ml IV BID JAMIE Last Admin: 01/17/23 21:23 Dose: 10 ml Sodium Chloride (Sodium Chloride 1 Gm Tab) 2 gm PO BIDWM JAMIE Last Admin: 01/17/23 15:55 Dose: 2 gm Assessment and Plan Problem List Fever of Unknown Origin Seizure disorder Hypothyroidism Hyperlipidemia Asthma Altered Mental Status Dementia Fever of Unknown Origin Altered Metal Status - Recent hospitalization at [facility] for similar symptoms during which she underwent lumbar puncture, MRI and EEG. She had received Rocephin x 1-2 weeks. Meningitis panel reportedly negative. - MRI brain 01/15: "No acute intracranial abnormality displayed. Moderate signal left mastoids may indicate a mastoiditis" - XR Chest 01/15: " Increased portion of the pulmonary interstitium could reflect atypical infection/inflammation, less likely edema. No consolidative pneumonia. " - Afebrile. No leukocytosis - Blood cultures 01/14: No growth to date - Currently on Rocephin (01/14-) Neurology consulted. Psychiatry consulted. Recommendations 01/18: Again, patient denies any neck pain or rigitidy; full neck ROM intact. Denies headache. Denies nausea, vomiting or diarrhea. No abdominal pain, chest pain or back pain. Denies shortness of breath, cough or palpitations. Remains afebrile. - Discontinue Rocephin. - Dx with neurocognitive disorder per neurology. - Supportive care and nutritional support as needed - Follow up with PCP/neurology as outpatient. Case management/ workers' compensation commissioner following Case discussed with Dr. Shadi Dozier
[2023-01-18] MEDS: CEFTRIAXONE 1,000 MG in NA CHLORIDE 0.9% 50 ML IVPB SCH (08:39)
[2023-01-18] MEDS: levETIRAcetam 500 MG TAB PO SCH (08:40)
[2023-01-18] MEDS: ENOXAPARIN 40 MG/0.4 ML SQ SCH (08:40)
[2023-01-18] MEDS: SODIUM CHLORIDE 1 GM TAB PO SCH (08:40)
[2023-01-18] MEDS: ASPIRIN 81 MG CHEWABLE TABLET PO SCH (08:40)
[2023-01-18 09:10] VITALS: O2SAT 99
[2023-01-18 10:14] VITALS: BP 131/75; TEMP 98.1
--- NOTE | 2023-01-18 13:25 | P.DS ---
Admission Date: 01/11/23 Discharge Date: 01/18/23 Disposition: DC HOME/HOME HEALTH CARE Discharge Condition: FAIR Reason for Admission: AMS Brief History of Present Illness: 62-year-old female with history of asthma, hypothyroidism, hyperlipidemia, hyponatremia, episodes of confusion/altered mental status, presented to the emergency department with altered mental status. Patient is reported to have ingested hand radio electrician. She has had multiple admissions ever since her initial admission on 12/15/2022 to [facility] where she had extensive testing including MRI, EEG, lumbar punctures, she has since had multiple readmissions w ith altered mental status. This has been made challenging by the fact that she is lucid between the episodes of confusion and refuses interventions frequently. Poison control was involved in the ED and they recommended no further intervention. Her sodium was 126 down from 129 discharge. Patient was admitted for further management. Hospital Course: Diagnosis Acute on chronic hyponatremia Intermittent confusion/altered mental status with ingestion of hand radio electrician suspected seizure disorder Fever, unknown origin Hypothyroidism Hyperlipidemia Asthma Patient admitted to the medical floor and the following medical problems addressed: Acute on chronic hyponatremia Previously diagnosed with SIADH, Spouse reported noncompliance with sodium tablets at home. Continued sodium tablets Nephrology saw and assisted with management. Sodium level improved with treatment. Intermittent confusion/altered mental status with ingestion of hand radio electrician suspected seizure disorder Status post extensive work-up including MRI, EEG, LP. She is intermittently lucid and during that time typically refuses medical care states patient has remained confused since initial hospitalization [facility] and has never returned back to her normal self" Patient diagnosed with neurocognitive disorder. Seen by neurology. Continued Keppra. Psych consulted -patient not a candidate for inpatient psych per Dr. Glynn. Patient was started on olanzapine to control her agitation per psychiatry. Brain MRI 01/15 shows no acute disease. Fever, unknown origin Patient had a single episode of fever during the hospital stay Patient seen by ID. UA was negative for UTI Patient treated empirically with IV Rocephin. No more fever during the hospital stay Hypothyroidism. continued Levothyroxine Hyperlipidemia. continued Atorvastatin Asthma: Stable. Patient was seen and evaluated by social service for long-term care placement in a memory care unit. Patient did not qualify for Medicaid for long-term care placement. Patient will be discharged to home under her 's care. 24 x 7 care and supervision recommended to the . stated he is arranging for 24 x 7 care. Social service is also making arrangement for home health with mental health and nursing clerk for home safety evaluation and to assist with care. Vital Signs/Physical Exam: Temp Pulse Resp BP Pulse Ox 98.1 F 76 16 131/75 100 01/18/23 08:00 01/18/23 08:00 01/18/23 08:00 01/18/23 08:00 01/18/23 08:00 General: Alert, In no apparent distress, Oriented x3 HEENT: Mucous membr. moist/pink Neck: Supple, JVD not distended Respiratory: Clear to auscultation bilaterally, Normal air movement Cardiovascular: No edema, Regular rate/rhythm, Normal S1 S2 Gastrointestinal: Normal bowel sounds, Soft and benign, No tenderness Musculoskeletal: No swelling Integumentary: No rashes, No cyanosis Neurological: Normal strength at 5/5 x4 extr, Other (Oriented x2) Lymphatics: No axilla or inguinal lymphadenopathy Laboratory Data at Discharge: WBC 4.10 thou/uL (4.3-10.9) L 01/16/23 04:05 Hgb 10.6 g/dL (12.0-15.0) L 01/16/23 04:05 Hct 29.5 % (36.0-45.0) L 01/16/23 04:05 Plt Count 211 thou/uL (152-406) 01/16/23 04:05 Sodium 135 mEq/L (136-145) L 01/16/23 04:05 Potassium 3.8 mEq/L (3.5-5.1) 01/16/23 04:05 BUN 8 mg/dL (7-18) 01/16/23 04:05 Creatinine 0.44 mg/dL (0.55-1.02) L 01/16/23 04:05 Glucose 86 mg/dL (74-106) 01/16/23 04:05 Phosphorus 4.2 mg/dL (2.5-4.9) 01/14/23 20:22 Magnesium 1.7 mg/dL (1.6-2.4) 01/16/23 04:05 Total Bilirubin 0.4 mg/dL (0.2-1.0) 01/14/23 15:46 AST 35 U/L (15-37) 01/14/23 15:46 ALT 58 U/L (13-56) H 01/14/23 15:46 Alkaline Phosphatase 94 U/L (45-117) 01/14/23 15:46 Home Medications: Famciclovir [Famvir] 500 mg PO BID 01/03/23 levETIRAcetam [Levetiracetam] 500 mg PO BID 01/03/23 Aspirin Chewable [Aspirin Chewable*] 81 mg PO DAILY #30 tab.chew 01/05/23 Atorvastatin Calcium [Lipitor] 80 mg PO BEDTIME 01/10/23 Levothyroxine [Synthroid*] 75 mcg PO [id number] 01/10/23 Thiamine HCl [Vitamin B-1*] 250 mg PO DAILY 01/10/23 icosapent ethyL [Icosapent Ethyl] 2 cap PO BIDWM 01/10/23 OLANZapine [Zyprexa*] 5 mg PO BEDTIME #30 tab 01/18/23 Sodium Chloride Tab [Sodium Chloride*] 2 gm PO BIDWM #120 tab 01/18/23 New Medications: Sodium Chloride Tab [Sodium Chloride*] 2 gm PO BIDWM #120 tab OLANZapine [Zyprexa*] 5 mg PO BEDTIME #30 tab Diet: Regular Activity: Fall precautions Followup: Aldo Lara MD [Primary Care Provider] - 1-2 Weeks Jose Martinez [ACTIVE - CAN ADMIT] - (2-4 weeks) Time spent managing pt's care (in minutes): 37
--- NOTE | 2023-01-18 19:30 | PN ---
Date of Progress Note: 01/18/2023 Subjective: The patient was admitted with hyponatremia secondary to noncompliance with salt tablet. After resuming salt tablet, the patient recovered. Physical Examination: Vital Signs: Blood pressure 131/75, pulse of 76, afebrile. Chest: Clear to auscultation. Heart: S1, S2 regular. Abdomen: Soft, nontender. Extremities: No edema. Neurologic: Alert. No focality. Laboratory Data: For the patient, hemoglobin 10.6. Sodium 135, potassium 3.8, bicarb 22, BUN 8, cre atinine 0.4, calcium 8.3. Current Medications: The patient on include salt tablet 2 g b.i.d., clonazepam, Keppra, aspirin, berenice rvastatin. Assessment And Plan: 1.Hyponatremia secondary to syndrome of inappropriate antidiuretic hormone. Continue salt tablet cu rrent dose and we will monitor. 2.Hypertension, controlled optimal. 3.Continue current treatment. 4.Hypomagnesemia, status post supplement, resolved. 5.Hypokalemia, status post supplement, resolved. 6.Patient cleared from the Renal standpoint for discharge planning. ROSA MARIA/ADALBERTO Voice ID: [id number] Report ID: [id number]
== END 2023-01-18 14:40 | disposition home health service (06) | DRG 644 ==
LOC: ER 17:04 → ERHOLD 22:23 → 2ND 22:57 → OBSVTOIN 01-11 14:25
PROVIDERS: ADMIT Hospitalist; ATTEND Internal Medicine
DX: E22.2 Syndrome of inappropriate secretion of antidiuretic hormone (principal); F03.911 Unspecified dementia, unspecified severity, with agitation; F05 Delirium due to known physiological condition; N17.9 Acute kidney failure, unspecified; I10 Essential (primary) hypertension; E03.9 Hypothyroidism, unspecified; E78.00 Pure hypercholesterolemia, unspecified; E87.6 Hypokalemia; E83.42 Hypomagnesemia; J45.909 Unspecified asthma, uncomplicated; T49.0X1A Poisoning by local antifungal, anti-infective and anti-inflammatory drugs, accidental (unintentional), initial encounter; T50.996A Underdosing of other drugs, medicaments and biological substances, initial encounter; S06.9XAS Unspecified intracranial injury with loss of consciousness status unknown, sequela; W18.30XS Fall on same level, unspecified, sequela; R41.9 Unspecified symptoms and signs involving cognitive functions and awareness; Z88.2 Allergy status to sulfonamides; Z79.82 Long term (current) use of aspirin; Z90.49 Acquired absence of other specified parts of digestive tract; Z79.899 Other long term (current) drug therapy; Z79.890 Hormone replacement therapy; Z91.128 Patient's intentional underdosing of medication regimen for other reason; Z91.198 Patient's noncompliance with other medical treatment and regimen for other reason
CPT/HCPCS: 36415; 70553; 71045; 80048; 80053; 81003; 82077; 83605; 83735; 83880; 83930; 83935; 84100; 84132; 84145; 84300; 84439; 84443; 85025; 86140; 87040; 93005; 96360; 99285; A9577; G0378; J0696; J1650; J1953; J2405; J3475; J3480; J7040; J7120